=== PATIENT | female | born 1940 | race Caucasian/White ===

== ENCOUNTER 2023-09-05 17:33 | Observation (INO) | payer OTHER ==
--- OUTSIDE RECORDS SUMMARY | 2023-09-05 17:41 | XMS REPORT | Continuity of Care Document ---
Author Name Unknown Address [address] [facility] [address] [place] [address] [facility] Address [address] [facility] [address] [place] [address] Care Team Providers Care Dispatcher Service Chief Name Role Phone PCP, UNKNOWN Primary Care Physician UnavailJoyce Stern Attending Clinician UnavailJEAN Sharma Attending Clinician Unavailable Service/[place], Surgery C Attending Clinician U Miguel Hernandez MD Attending Clinicia n Jean Wheatley MD Attending Clinician [phone] KEILA HAMMER Attending Clinician UnavailKeila Rossi Attending Clinician Ruma Salinas RN Attending Clinician UnavailThiago Jones MD Attending Clinician [phone] TIFFANY PATTERSON Attending Clinician U TIFFANY Garcia Attending Clinician U Iam Gomez Attending Clinician Unavailable Doctor Unassigned, [place] Attending Clinician U ZACARIAS Melo Attending Clinician Unavailable ZACARIAS SAMSON Attending Clinician Unavailable Everette Jiang MD Attending Clinician [phone] Brandon Landa MD Attending Clinician [phone] BRITTANY MARTEL Attending Clinician Unavailable Brittany Martel MD Attending Clinician [phone] RADIOLOGY Attending Clinician Unavailable Radiology Attending Clinician Unavailable KEILA FREITAS Attending Clinician UnavailROCAEL Sanabria Attending Clinician Unavailable JUSTA SANTOS Attending Clinician Unavailab TINY Tobias Attending Clinician UnavailTHIAGO Sidhu Admitting Clinician Unavailable Thiago Bee MD Admitting Clinician [phone] ZACARIAS SAMSON Admitting Clinician Unavailable BRITTANY MARTEL Admitting Clinician Unavailable JOYCE SERNA Admitting Clinician Unavailab JUSTA Quinteros Admitting Clinician Unavailab sandra Payers Payer Name Policy Type Policy Number Effective Date Expirati on Date Source [employer] CHO[employer] [id number] 2020 00:00:00 [employer] MEDICARE C1 [id number] Comm on [facility] Problems Condition Name Condition Details Condition Category Status Onset Date Resolution Date Last Treatment Date Treating Clinician Comments Source Pneumoperi toneum Pneumoperi toneum Disease Active 05-16 00:00: 00 [facility] Chest pain, unspecifie d type Chest pain, unspecifie d type Disease Active 04-07 00:00: 00 [facility] NSTEMI (non-ST elevated myocardial infarction ) NSTEMI (non-ST elevated myocardial infarction ) Disease Active 04-07 00:00: 00 [facility] [id number] Sciatica of right side Problem Active [facility] [id number] 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 [facility] [id number] Unilateral primary osteoarthr itis, right knee Problem Active [facility] [id number] Pain, joint, knee, left Problem Active [facility] [id number] Arthritis of shoulder Problem Active [facility] Allergies, Adverse Reactions, Alerts Allergy Name Allergy Type Status Severity Reaction(s) Onset Date Inactive Date Treating Clinician Comments Source No Known Drug Allergie s DA Active U 8-15 00:00: 00 [facility] NO KNOWN ALLERGIE S Drug Class Active [facility] Social History Social Habit Start Date Stop Date Quantity Comments Source History of Tobacco Use [facility] Sex Assigned At [facility] History of Social function 2023-06-04 00:00:00 2023-06-04 00:00:00 [facility] Tobacco use and exposure 2023-05-17 00:00:00 2023-05-17 00:00:00 Smokeless tobacco non-user [facility] Tobacco Comment 2023-05-17 00:00:00 2023-05-17 00:00:00 Non smoker [facility] Exposure to SARS-CoV-2 (event) 2023-01-16 00:00:00 2023-01-26 12:23:00 Not sure [facility] Smoking Status Start Date Stop Date Source Tobacco smoking consumption unknown [facility] Never smoked tobacco [facility] Medications Ordered Medication Name Filled Medication Name Start Date Stop Date Current Medication? Ordering Clinician Indication Dosage Frequency Signature (SIG) Comments Components Source lisinopriL 20 mg tablet 06-04 13:04: 50 Yes 20mg Take 1 tablet by mouth in the morning. [facility] atorvastati n 40 mg tablet 06-04 13:04: 50 Yes 40mg Take 1 tablet by mouth at bedtime. [facility] furosemide 40 mg tablet 06-04 13:04: 50 Yes 40mg Take 1 tablet by mouth in the morning. [facility] levothyroxi ne 50 mcg tablet 06-04 13:04: 50 Yes 50ug Take 1 tablet by mouth every morning. [facility] metoprolol succinate XL 25 mg 24 hr tablet 06-04 13:04: 50 Yes 25mg Take 1 tablet by mouth in the morning. [facility] lisinopriL 20 mg tablet 202306-04 13:04: 50 Yes 20mg Take 1 tablet by mouth in the morning. [facility] atorvastati n 40 mg tablet 06-04 13:04: 50 Yes 40mg Take 1 tablet by mouth at bedtime. [facility] furosemide 40 mg tablet 06-04 13:04: 50 Yes 40mg Take 1 tablet by mouth in the morning. [facility] levothyroxi ne 50 mcg tablet 06-04 13:04: 50 Yes 50ug Take 1 tablet by mouth every morning. [facility] metoprolol succinate XL 25 mg 24 hr tablet 06-04 13:04: 50 Yes 25mg Take 1 tablet by mouth in the morning. [facility] lisinopriL 20 mg tablet 05-19 14:40: 55 Yes 20mg Take 1 tablet by mouth in the morning. [facility] atorvastati n 40 mg tablet 05-19 14:40: 55 Yes 40mg Take 1 tablet by mouth at bedtime. [facility] furosemide 40 mg tablet 05-19 14:40: 55 Yes 40mg Take 1 tablet by mouth in the morning. [facility] levothyroxi ne 50 mcg tablet 05-19 14:40: 55 Yes 50ug Take 1 tablet by mouth every morning. [facility] metoprolol succinate XL 25 mg 24 hr tablet 05-19 14:40: 55 Yes 25mg Take 1 tablet by mouth in the morning. [facility] lisinopriL 20 mg tablet 05-19 14:40: 55 Yes 20mg Take 1 tablet by mouth in the morning. [facility] atorvastati n 40 mg tablet 05-19 14:40: 55 Yes 40mg Take 1 tablet by mouth at bedtime. [facility] furosemide 40 mg tablet 05-19 14:40: 55 Yes 40mg Take 1 tablet by mouth in the morning. [facility] levothyroxi ne 50 mcg tablet 05-19 14:40: 55 Yes 50ug Take 1 tablet by mouth every morning. [facility] metoprolol succinate XL 25 mg 24 hr tablet 2022-0 8-20 14:40: 55 Yes 25mg Take 1 tablet by mouth in the morning. [facility] lisinopriL 20 mg tablet 2022-0 8-20 14:40: 55 Yes 20mg Take 1 tablet by mouth in the morning. [facility] atorvastati n 40 mg tablet 2022-0 8-20 14:40: 55 Yes 40mg Take 1 tablet by mouth at bedtime. [facility] furosemide 40 mg tablet 2022-0 820 14:40: 55 Yes 40mg Take 1 tablet by mouth in the morning. [facility] levothyroxi ne 50 mcg tablet 0 8 14:40: 55 Yes 50ug Take 1 tablet by mouth every morning. [facility] metoprolol succinate XL 25 mg 24 hr tablet 2022-0 820 14:40: 55 Yes 25mg Take 1 tablet by mouth in the morning. [facility] lisinopriL 20 mg tablet 2022-0 820 14:40: 55 Yes 20mg Take 1 tablet by mouth in the morning. [facility] atorvastati n 40 mg tablet 0 820 14:40: 55 Yes 40mg Take 1 tablet by mouth at bedtime. [facility] furosemide 40 mg tablet 2022-0 820 14:40: 55 Yes 40mg Take 1 tablet by mouth in the morning. [facility] levothyroxi ne 50 mcg tablet 2022-0 820 14:40: 55 Yes 50ug Take 1 tablet by mouth every morning. [facility] metoprolol succinate XL 25 mg 24 hr tablet 2022-0 820 14:40: 55 Yes 25mg Take 1 tablet by mouth in the morning. [facility] lisinopriL 20 mg tablet 2022-0 8-20 14:40: 55 Yes 20mg Take 1 tablet by mouth in the morning. [facility] atorvastati n 40 mg tablet 2022-0 8-20 14:40: 55 Yes 40mg Take 1 tablet by mouth at bedtime. [facility] furosemide 40 mg tablet 05-19 14:40: 55 Yes 40mg Take 1 tablet by mouth in the morning. [facility] levothyroxi ne 50 mcg tablet 05-19 14:40: 55 Yes 50ug Take 1 tablet by mouth every morning. [facility] metoprolol succinate XL 25 mg 24 hr tablet 05-19 14:40: 55 Yes 25mg Take 1 tablet by mouth in the morning. [facility] pantoprazol e (PROTONIX) 40 mg EC tablet 05-19 00:00: 00 08-18 05:59 :00 No [id number] 40mg Take 1 tablet by mouth in the morning for 90 days. [facility] pantoprazol e (PROTONIX) 40 mg EC tablet 05-19 00:00: 00 08-18 05:59 :00 No [id number] 40mg Take 1 tablet by mouth in the morning for 90 days. [facility] pantoprazol e (PROTONIX) 40 mg EC tablet 05-19 00:00: 00 08-18 05:59 :00 No [id number] 40mg Take 1 tablet by mouth in the morning for 90 days. [facility] pantoprazol e (PROTONIX) 40 mg EC tablet 05-19 00:00: 00 08-18 05:59 :00 No [id number] 40mg Take 1 tablet by mouth in the morning for 90 days. [facility] pantoprazol e (PROTONIX) 40 mg EC tablet 05-19 00:00: 00 08-18 05:59 :00 No [id number] 40mg Take 1 tablet by mouth in the morning for 90 days. [facility] pantoprazol e (PROTONIX) 40 mg EC tablet 05-19 00:00: 00 08-18 05:59 :00 No [id number] 40mg Take 1 tablet by mouth in the morning for 90 days. [facility] pantoprazol e (PROTONIX) 40 mg EC tablet 20 00:00: 00 08-18 05:59 :00 No [id number] 40mg Take 1 tablet by mouth in the morning for 90 days. [facility] clarithromy han 500 mg tablet 20 00:00: 00 06-03 04:59 :00 No [id number] 500mg Take 1 tablet by mouth every 12 (twelve) hours for 14 days. [facility] amoxicillin 500 mg capsule 05-19 00:00: 00 06-03 04:59 :00 No [id number] 1000mg Take 2 capsules by mouth in the morning and 2 capsules in the evening. Do all this for 14 days. [facility] clarithromy han 500 mg tablet 05-19 00:00: 00 06-03 04:59 :00 No [id number] 500mg Take 1 tablet by mouth every 12 (twelve) hours for 14 days. [facility] amoxicillin 500 mg capsule 05-19 00:00: 00 06-03 04:59 :00 No [id number] 1000mg Take 2 capsules by mouth in the morning and 2 capsules in the evening. Do all this for 14 days. [facility] clarithromy han 500 mg tablet 05-19 00:00: 00 06-03 04:59 :00 No [id number] 500mg Take 1 tablet by mouth every 12 (twelve) hours for 14 days. [facility] amoxicillin 500 mg capsule 05-19 00:00: 00 06-03 04:59 :00 No [id number] 1000mg Take 2 capsules by mouth in the morning and 2 capsules in the evening. Do all this for 14 days. [facility] clarithromy han 500 mg tablet 05-19 00:00: 00 06-03 04:59 :00 No [id number] 500mg Take 1 tablet by mouth every 12 (twelve) hours for 14 days. [facility] amoxicillin 500 mg capsule 20 00:00: 06-03 04:59 :00 No [id number] 1000mg Take 2 capsules by mouth in the morning and 2 capsules in the evening. Do all this for 14 days. [facility] clarithromy han 500 mg tablet 05-19 00:00: 00 06-03 04:59 :00 No [id number] 500mg Take 1 tablet by mouth every 12 (twelve) hours for 14 days. [facility] amoxicillin 500 mg capsule 05-19 00:00: 06-03 04:59 :00 No [id number] 1000mg Take 2 capsules by mouth in the morning and 2 capsules in the evening. Do all this for 14 days. [facility] piperacilli n-tazobacta m (ZOSYN) 3.375 g in NaCl 0.9% (NS) 100 mL MINI-BAG 05-18 03:00: 00 05-23 02:59 :00 No 3.375g 3.375 g, IV Piggyback, Q8H ABX, 15 doses, First dose on Sat05/17/23 at 2200, Last dose on Sat05/22/23 at 1400, Administer over 4 Hours, 100 mL
Reas on for Anti-Infec tive: Documented Infection& lt;br>Docu mented Infection Site: Abdominal< br>Duratio n of Therapy: Other (see Comments) [facility] hydrOXYzine (ATARAX) tablet 25 mg 05-17 23:16: 43 Yes 25mg 25 mg, Oral, Q6HPRN, Starting on Sat05/17/23 at 1816, Until Discontinu ed, Routine, Anxiety [facility] ondansetron (ZOFRAN-ODT ) disintegrat ing tablet 4 mg 05-17 19:28: 02 Yes 4mg 4 mg, Oral, Q8HPRN, Starting on Sat05/17/23 at 1428, Until Discontinu ed, Routine, Nausea and Vomiting (N/V) [facility] acetaminoph en (TYLENOL) tablet 650 mg 05-17 19:23: 40 Yes 650mg 650 mg, Oral, Q6HPRN, Starting on Sat05/17/23 at 1423, Until Discontinu ed, Routine, Pain (scale 4-6) [facility] metoprolol succinate XL (TOPROL XL) tablet 25 mg 05-17 14:00: 00 Yes 25mg 25 mg, Oral, DAILY, First dose on Sat05/17/23 at 0900, Until Discontinu ed, Routine [facility] aspirin chewable tablet 81 mg 05-17 14:00: 00 Yes 81mg 81 mg, Oral, DAILY, First dose on Sat05/17/23 at 0900, Until Discontinu ed, Routine [facility] levothyroxi ne (SYNTHROID) injection 25 mcg 05-17 14:00: 00 Yes 25ug 25 mcg, Intravenou s, QAM, First dose on Sat05/17/23 at 0900, Until Discontinu ed, Routine [facility] ticagrelor (BRILINTA) tablet 90 mg 05-17 13:00: 00 Yes 90mg 90 mg, Oral, BID, First dose on Sat05/17/23 at 0800, Until Discontinu ed, Routine [facility] fluconazole (DIFLUCAN) IV Piggyback 400 mg 05-17 11:30: 00 05-22 11:29 :00 No 400mg at 100 mL/hr, IV Piggyback, Q24H ABX, 5 doses, First dose (after last reorder) on Sat05/17/23 at 0630, Last dose on Sat05/21/23 at 0630, ERICA
Do Not Refrigerat e.
[facility] pantoprazol e (PROTONIX) injection 40 mg 05-17 01:00: 00 Yes 40mg 40 mg, Slow IV Push, Q12H, First dose (after last modificati on) on Sat05/16/23 at 2000, Until Discontinu ed [facility] D5W 0.45% NaCl (1/2NS) 1 L + KCL 20 mEq 05-17 00:15: 00 05-19 14:52 :17 No IV Infusion, at 100 mL/hr, CONTINUOUS , Starting on Sat05/16/23 at 1915, Until Sat05/19/23 at 0952, Routine [facility] enoxaparin (LOVENOX) injection 40 mg 05-16 22:00: 00 Yes 40mg 40 mg, Subcutaneo us, DAILY, First dose on Sat05/16/23 at 1700, Until Discontinu ed, Routine [facility] iopamidol (ISOVUE 370-200 mL) injection 100 mL 05-16 19:15: 00 05-16 19:13 :00 No [id number] 100mL 100 mL, Oral, ONCE, 1 dose, On Sat05/16/23 at 1415, Routine [facility] piperacilli n-tazobacta m (ZOSYN) 3.375 g in NaCl 0.9% (NS) 100 mL MINI-BAG 05-16 17:15: 00 05-17 14:55 :00 No 3.375g 3.375 g, IV Piggyback, Q8H ABX, 3 doses, First dose on Sat05/16/23 at 1215, Last dose on Sat05/17/23 at 0415, Administer over 4 Hours, 100 mL
Reas on for Anti-Infec tive: Empiric Therapy for Suspected Infection< br>Empiric Therapy Site: Abdominal< br>Duratio n of therapy: 72 hours [facility] ondansetron (ZOFRAN (PF)) injection 4 mg 05-16 15:15: 00 05-16 14:27 :00 No 4mg 4 mg, Slow IV Push, ONCE, On Sat05/16/23 at 1015, For 1 dose
Do ses of ondansetro n 16 mg and above need to be administer ed via IV piggyback. For Dose >=24mg ECG monitoring is advisable.
[facility] sulfur hexafluorid e microsphr (LUMASON) injection 5 mL 05-16 14:45: 00 05-16 14:45 :00 No [id number] 5mL 5 mL, Intravenou s, ONCE, 1 dose, On Lynda 05/16/23 at 0945, Routine
hotel staff member approving Restricted medication : RANJIT PENA [facility] magnesium sulfate in water 2 gram/50 mL (4 %) infusion 2 g 05-16 11:45: 00 05-16 12:55 :00 No 2g 2 g, IV Piggyback, Administer over 60 Minutes, ONCE, 1 dose, On Lynda 05/16/23 at 0645, Routine [facility] piperacilli n-tazobacta m (ZOSYN) 3.375 g in NaCl 0.9% (NS) 100 mL MINI-BAG 05-16 09:30: 00 05-16 09:43 :00 No 3.375g 3.375 g, IV Piggyback, ONCE, 1 dose, On Sat05/16/23 at 0430, Administer over 30 Minutes, 100 mL
Reas on for Anti-Infec tive: Empiric Therapy for Suspected Infection< br>Empiric Therapy Site: Abdominal< br>Duratio n of therapy: 72 hours [facility] lactated ringers IV infusion 1,000 mL 05-16 09:00: 00 05-16 23:12 :54 No 1000mL at 80 mL/hr, 1,000 mL, IV Infusion, CONTINUOUS , Starting on Sat05/16/23 at 0400, Until Lynda 05/16/23 at 1812, Routine [facility] morpHINE (2 mg/mL) injection 2 mg 05-16 08:45: 06 Yes 2mg 2 mg, Slow IV Push, Q4HPRN, Starting on Sat05/16/23 at 0345, Until Discontinu ed, Routine, Pain (scale 7-10) [facility] fluconazole (DIFLUCAN) IV Piggyback 400 mg 05-16 08:45: 00 05-16 13:51 :00 No 400mg at 100 mL/hr, IV Piggyback, Q24H ABX, 1 dose, First dose on Sat05/16/23 at 0345, ERICA
Do Not Refrigerat e.
[facility] pantoprazol e (PROTONIX) injection 40 mg 05-16 08:45: 00 05-16 12:09 :49 No 40mg 40 mg, Slow IV Push, Q24H, 3 doses, First dose on Lynda 05/16/23 at 0345, Last dose on Sat05/18/23 at 0345 [facility] acetaminoph en ADULT (OFIRMEV) injection 1,000 mg 05-16 08:44: 52 05-17 08:43 :52 No 1000mg 1,000 mg, IV Infusion, at 400 mL/hr Administer over 15 Minutes, Q8HPRN, Starting on Lynda 05/16/23 at 0344, Until Sat05/17/23 at 0343, Routine, Pain (scale 1-3), Pain (scale 4-6)
In dication: Perioperat shruti Patient [facility] ondansetron (ZOFRAN (PF)) injection 4 mg 05-16 08:42: 41 05-17 19:27 :27 No 4mg 4 mg, Slow IV Push, Q6HPRN, Starting on Lynda 05/16/23 at 0342, Until Sat05/17/23 at 1427, Routine, Nausea and Vomiting (N/V) [facility] NaCl 0.9% (NS) IV infusion 1,000 mL 05-16 06:15: 00 Yes 1000mL at 125 mL/hr, IV Infusion, CONTINUOUS , Starting on Sat05/16/23 at 0115, Until Discontinu ed, Routine [facility] morpHINE (4 mg/mL) injection 4 mg 05-16 06:00: 00 05-16 05:53 :00 No 4mg 4 mg, Slow IV Push, ONCE, 1 dose, On Sat05/16/23 at 0100, STAT [facility] LORazepam (ATIVAN) injection 0.5 mg 05-16 02:45: 00 05-16 02:32 :00 No .5mg 0.5 mg, Slow IV Push, ONCE, 1 dose, On Sat05/15/23 at 2145, [facility] morpHINE (4 mg/mL) injection 4 mg 05-16 02:30: 00 05-16 01:51 :00 No 4mg 4 mg, Slow IV Push, ONCE, 1 dose, On Sat05/15/23 at 2130, [facility] famotidine (PEPCID (PF)) injection 20 mg 05-16 02:30: 00 05-16 01:51 :00 No 20mg 20 mg, Slow IV Push, ONCE, 1 dose, On Sat05/15/23 at 2130, [facility] ondansetron (ZOFRAN (PF)) injection 4 mg 05-16 02:30: 00 05-16 01:51 :00 No 4mg 4 mg, Slow IV Push, ONCE, 1 dose, On Sat05/15/23 at 2130, [facility] aspirin 81 mg chewable tablet 3-0 7-14 00:00: 00 Yes [id number] 81mg Take 1 tablet by mouth in the morning. [facility] aspirin 81 mg chewable tablet 3-0 7-14 00:00: 00 Yes [id number] 81mg Take 1 tablet by mouth in the morning. [facility] aspirin 81 mg chewable tablet 3-0 7-14 00:00: 00 Yes [id number] 81mg Take 1 tablet by mouth in the morning. [facility] aspirin 81 mg chewable tablet 3-0 7-14 00:00: 00 Yes [id number] 81mg Take 1 tablet by mouth in the morning. [facility] aspirin 81 mg chewable tablet 3-0 7-14 00:00: 00 Yes [id number] 81mg Take 1 tablet by mouth in the morning. [facility] aspirin 81 mg chewable tablet 3-0 7-14 00:00: 00 Yes [id number] 81mg Take 1 tablet by mouth in the morning. [facility] aspirin 81 mg chewable tablet 04-12 00:00: 00 Yes [id number] 81mg Take 1 tablet by mouth in the morning. [facility] aspirin 81 mg chewable tablet 0 04-12 00:00: 00 Yes [id number] 81mg Take 1 tablet by mouth in the morning. [facility] aspirin 81 mg chewable tablet 04-12 00:00: 00 Yes [id number] 81mg Take 1 tablet by mouth in the morning. [facility] aspirin 81 mg chewable tablet 04-12 00:00: 00 Yes [id number] 81mg Take 1 tablet by mouth in the morning. [facility] aspirin 81 mg chewable tablet 04-12 00:00: 00 Yes [id number] 81mg Take 1 tablet by mouth in the morning. [facility] aspirin 81 mg chewable tablet 04-12 00:00: 00 Yes [id number] 81mg Take 1 tablet by mouth in the morning. [facility] lisinopriL 20 mg tablet 04-11 14:05: 45 Yes 20mg Take 1 tablet by mouth in the morning. [facility] atorvastati n 40 mg tablet 04-11 14:05: 45 Yes 40mg Take 1 tablet by mouth at bedtime. [facility] furosemide 40 mg tablet 04-11 14:05: 45 Yes 40mg Take 1 tablet by mouth in the morning. [facility] levothyroxi ne 50 mcg tablet 04-11 14:05: 45 Yes 50ug Take 1 tablet by mouth every morning. [facility] metoprolol succinate XL 25 mg 24 hr tablet 04-11 14:05: 45 Yes 25mg Take 1 tablet by mouth in the morning. [facility] lisinopriL 20 mg tablet 04-11 14:05: 45 Yes 20mg Take 1 tablet by mouth in the morning. [facility] atorvastati n 40 mg tablet 04-11 14:05: 45 Yes 40mg Take 1 tablet by mouth at bedtime. [facility] furosemide 40 mg tablet 04-11 14:05: 45 Yes 40mg Take 1 tablet by mouth in the morning. [facility] levothyroxi ne 50 mcg tablet 04-11 14:05: 45 Yes 50ug Take 1 tablet by mouth every morning. [facility] metoprolol succinate XL 25 mg 24 hr tablet 04-11 14:05: 45 Yes 25mg Take 1 tablet by mouth in the morning. [facility] lisinopriL 20 mg tablet 04-11 14:05: 45 Yes 20mg Take 1 tablet by mouth in the morning. [facility] [facility] atorvastati n 40 mg tablet 04-11 14:05: 45 Yes 40mg Take 1 tablet by mouth at bedtime. [facility] furosemide 40 mg tablet 04-11 14:05: 45 Yes 40mg Take 1 tablet by mouth in the morning. [facility] levothyroxi ne 50 mcg tablet 04-11 14:05: 45 Yes 50ug Take 1 tablet by mouth every morning. [facility] metoprolol succinate XL 25 mg 24 hr tablet 04-11 14:05: 45 Yes 25mg Take 1 tablet by mouth in the morning. [facility] lisinopriL 20 mg tablet 04-11 14:05: 45 Yes 20mg Take 1 tablet by mouth in the morning. [facility] atorvastati n 40 mg tablet 04-11 14:05: 45 Yes 40mg Take 1 tablet by mouth at bedtime. [facility] furosemide 40 mg tablet 04-11 14:05: 45 Yes 40mg Take 1 tablet by mouth in the morning. [facility] levothyroxi ne 50 mcg tablet 04-11 14:05: 45 Yes 50ug Take 1 tablet by mouth every morning. [facility] metoprolol succinate XL 25 mg 24 hr tablet 04-11 14:05: 45 Yes 25mg Take 1 tablet by mouth in the morning. [facility] KCL (KLOR-CON M20) tablet 40 mEq 04-11 12:45: 00 04-11 14:45 :00 No 40meq 40 mEq, Oral, ONCE, 1 dose, On Sat04/11/23 at 0745, Routine [facility] magnesium sulfate in water 2 gram/50 mL (4 %) infusion 2 g 04-11 12:45: 00 04-11 15:52 :00 No 2g 2 g, IV Piggyback, Administer over 60 Minutes, ONCE, 1 dose, On Sat04/11/23 at 0745, Routine [facility] lisinopriL 20 mg tablet 04-11 10:52: 49 Yes 20mg Take 1 tablet by mouth in the morning. [facility] atorvastati n 40 mg tablet 04-11 10:52: 49 Yes 40mg Take 1 tablet by mouth at bedtime. [facility] furosemide 40 mg tablet 04-11 10:52: 49 Yes 40mg Take 1 tablet by mouth in the morning. [facility] levothyroxi ne 50 mcg tablet 04-11 10:52: 49 Yes 50ug Take 1 tablet by mouth every morning. [facility] metoprolol succinate XL 25 mg 24 hr tablet 04-11 10:52: 49 Yes 25mg Take 1 tablet by mouth in the morning. [facility] melatonin (MELATIN) tablet 6 mg 04-11 02:45: 00 04-11 02:56 :00 No 6mg 6 mg, Oral, ONCE, 1 dose, On Sat04/10/23 at 2145, Routine [facility] diphenhydrA MINE (BENADRYL) tablet 50 mg 04-11 02:45: 00 04-11 02:56 :00 No 50mg 50 mg, Oral, ONCE, 1 dose, On Sat04/10/23 at 2145, Routine [facility] ticagrelor 90 mg tablet 04-11 00:00: 00 Yes [id number] 90mg Take 1 tablet by mouth in the morning and 1 tablet in the evening. [facility] mg tablet 3-0 7-13 00:00: 00 Yes [id number] 90mg Take 1 tablet by mouth in the morning and 1 tablet in the evening. [facility] tic[facility]relor 90 mg tablet 3-0 7-13 00:00: 00 Yes [id number] 90mg Take 1 tablet by mouth in the morning and 1 tablet in the evening. [facility] ticagrelor 90 mg tablet 3-0 7-13 00:00: 00 Yes [id number] 90mg Take 1 tablet by mouth in the morning and 1 tablet in the evening. [facility] ticagrelor 90 mg tablet 3-0 7-13 00:00: 00 Yes [id number] 90mg Take 1 tablet by mouth in the morning and 1 tablet in the evening. [facility] ticagrelor 90 mg tablet 3-0 7-13 00:00: 00 Yes [id number] 90mg Take 1 tablet by mouth in the morning and 1 tablet in the evening. [facility] ticagrelor 90 mg tablet 3-0 7-13 00:00: 00 Yes [id number] 90mg Take 1 tablet by mouth in the morning and 1 tablet in the evening. [facility] ticagrelor 90 mg tablet 3-0 7-13 00:00: 00 Yes [id number] 90mg Take 1 tablet by mouth in the morning and 1 tablet in the evening. [facility] ticagrelor 90 mg tablet 3-0 7-13 00:00: 00 Yes [id number] 90mg Take 1 tablet by mouth in the morning and 1 tablet in the evening. [facility] ticagrelor 90 mg tablet 3-0 7-13 00:00: 00 Yes [id number] 90mg Take 1 tablet by mouth in the morning and 1 tablet in the evening. [facility] ticagrelor 90 mg tablet 2023-0 7-13 00:00: 00 Yes [id number] 90mg Take 1 tablet by mouth in the morning and 1 tablet in the evening. [facility] ticagrelor 90 mg tablet 3-0 7-13 00:00: 00 Yes [id number] 90mg Take 1 tablet by mouth in the morning and 1 tablet in the evening. [facility] protamine 25 mg in NaCl 0.9% (NS) 50 mL IV piggyback 04-10 18:08: 00 04-10 18:25 :00 No CONTINUOUS PRN, Starting on Sat04/10/23 at 1308, Until Discontinu ed, 50 mL, CV Intraproce dure [facility] iopamidol (ISOVUE 370-500 mL) injection 04-10 18:05: 00 04-10 18:35 :35 No ONCE INTRA PROCEDURE, Starting on Sat04/10/23 at 1305, Until Sat04/10/23 at 1335, Routine, CV Intraproce dure [facility] protamine 1 mg in NaCl 0.9% (NS) 50 mL IV piggyback 04-10 17:53: 00 04-10 18:25 :00 No CONTINUOUS PRN, Starting on Sat04/10/23 at 1253, Until Discontinu ed, 50 mL, CV Intraproce dure [facility] adenosine 6 mg/1000 mL INTRACORONA RY injection for SHOW JUMPING IN[employer]CTOR 04-10 17:41: 00 04-10 18:35 :35 No ONCE INTRA PROCEDURE, Starting on Sat04/10/23 at 1241, Until Sat04/10/23 at 1335, Routine, CV Intraproce dure [facility] nitroglycer in (TRIDIL) 2 mg in 10 mL D5W for Cardiac Cath 04-10 17:25: 00 04-10 18:35 :35 No ONCE INTRA PROCEDURE, Starting on Sat04/10/23 at 1225, Until Sat04/10/23 at 1335, Routine, CV Intraproce dure [facility] heparin 1,000 unit/mL injection 04-10 16:38: 00 04-10 18:35 :36 No ONCE INTRA PROCEDURE, Starting on Sat04/10/23 at 1138, Until Sat04/10/23 at 1335, Routine, CV Intraproce dure [facility] lidocaine 1% (PF) (XYLOCAINE) injection 04-10 16:21: 59 04-10 18:35 :36 No ONCE INTRA PROCEDURE, Starting on Sat04/10/23 at 1121, Until Sat04/10/23 at 1335, Routine, CV Intraproce dure [facility] midazolam (VERSED) injection 04-10 16:10: 20 04-10 18:35 :36 No ONCE INTRA PROCEDURE, Starting on Sat04/10/23 at 1110, Until Sat04/10/23 at 1335, Routine, CV Intraproce dure [facility] FENTanyl PF (SUBLIMAZE (PF)) injection 04-10 16:10: 15 04-10 18:35 :36 No ONCE INTRA PROCEDURE, Starting on Sat04/10/23 at 1110, Until Sat04/10/23 at 1335, Routine, CV Intraproce dure [facility] ticagrelor (BRILINTA) tablet 90 mg 04-10 13:00: 00 Yes 90mg 90 mg, Oral, BID, First dose (after last modificati on) on Sat04/10/23 at 0800, Until Discontinu ed, Routine [facility] ticagrelor (BRILINTA) tablet 90 mg 04-10 13:00: 00 04-11 21:05 :49 No 90mg 90 mg, Oral, BID, First dose (after last modificati on) on Sat04/10/23 at 0800, Until Discontinu ed, Routine [facility] KCL (KLOR-CON M20) tablet 40 mEq 04-10 12:30: 00 04-10 14:10 :00 No 40meq 40 mEq, Oral, ONCE, 1 dose, On Sat04/10/23 at 0730, Routine [facility] melatonin (MELATIN) tablet 6 mg 04-10 07:15: 00 04-10 06:32 :00 No 6mg 6 mg, Oral, ONCE, 1 dose, On Sat04/10/23 at 0215, Routine [facility] diphenhydrA MINE (BENADRYL) capsule 50 mg 04-10 07:15: 00 04-10 06:32 :00 No 50mg 50 mg, Oral, ONCE, 1 dose, On Sat04/10/23 at 0215, Routine [facility] ticagrelor (BRILINTA) tablet 180 mg 04-10 03:15: 00 04-10 04:11 :00 No [id number] 180mg 180 mg, Oral, ONCE, 1 dose, On Sat04/09/23 at 2215, Routine [facility] acetaminoph en (TYLENOL) tablet 1,000 mg 04-09 09:00: 00 04-09 11:26 :00 No 1000mg 1,000 mg, Oral, ONCE, 1 dose, On Sat04/09/23 at 0400, Routine [facility] sulfur hexafluorid e microsphr (LUMASON) injection 5 mL 04-08 21:45: 00 04-08 21:40 :00 No [id number] 5mL 5 mL, Intravenou s, ONCE, 1 dose, On Sat04/08/23 at 1645, Routine
hotel staff member approving Restricted medication : RANJIT PENA [facility] trimethoben zamide (TIGAN) injection 100 mg 04-08 19:33: 32 Yes 100mg 100 mg, Intramuscu lar, Q6HPRN, Starting on Sat04/08/23 at 1433, Until Discontinu ed, Routine, Nausea and Vomiting (N/V) [facility] trimethoben zamide (TIGAN) injection 100 mg 04-08 19:33: 32 Yes 100mg 100 mg, Intramuscu lar, Q6HPRN, Starting on Sat04/08/23 at 1433, Until Discontinu ed, Routine, Nausea and Vomiting (N/V) [facility] trimethoben zamide (TIGAN) injection 100 mg 04-08 19:33: 32 04-11 21:05 :49 No 100mg 100 mg, Intramuscu lar, Q6HPRN, Starting on Sat04/08/23 at 1433, Until Lynda 04/11/23 at 1605, Routine, Nausea and Vomiting (N/V) [facility] iopamidol (ISOVUE 370-500 mL) injection 04-08 17:48: 06 04-08 18:01 :18 No ONCE INTRA PROCEDURE, Starting on Sat04/08/23 at 1248, Until Sat04/08/23 at 1301, Routine, CV Intraproce dure [facility] heparin 1,000 unit/mL injection 04-08 17:19: 51 04-08 18:01 :18 No ONCE INTRA PROCEDURE, Starting on Sat04/08/23 at 1219, Until Sat04/08/23 at 1301, Routine, CV Intraproce dure [facility] nitroglycer in (TRIDIL) 2 mg in 10 mL D5W for Cardiac Cath 04-08 17:19: 39 04-08 18:01 :18 No ONCE INTRA PROCEDURE, Starting on Sat04/08/23 at 1219, Until Sat04/08/23 at 1301, Routine, CV Intraproce dure [facility] lidocaine 1% (PF) (XYLOCAINE) injection 04-08 17:19: 09 04-08 18:01 :18 No ONCE INTRA PROCEDURE, Starting on Sat04/08/23 at 1219, Until Sat04/08/23 at 1301, Routine, CV Intraproce dure [facility] midazolam (VERSED) injection 04-08 17:03: 00 04-08 18:01 :18 No ONCE INTRA PROCEDURE, Starting on Sat04/08/23 at 1203, Until Sat04/08/23 at 1301, Routine, CV Intraproce dure [facility] FENTanyl PF (SUBLIMAZE (PF)) injection 04-08 17:03: 00 04-08 18:01 :18 No ONCE INTRA PROCEDURE, Starting on Sat04/08/23 at 1203, Until Sat04/08/23 at 1301, Routine, CV Intraproce dure [facility] furosemide (LASIX) tablet 40 mg 2022-0 04-08 14:00: 00 Yes 40mg 40 mg, Oral, DAILY, First dose on Sat04/08/23 at 0900, Until Discontinu ed, Routine [facility] metoprolol succinate XL (TOPROL XL) tablet 25 mg 2022-0 04-08 14:00: 00 Yes 25mg 25 mg, Oral, DAILY, First dose on Sat04/08/23 at 0900, Until Discontinu ed, Routine [facility] lisinopriL (PRINIVIL,Z ESTRIL) tablet 20 mg 2022-0 04-08 14:00: 00 Yes 20mg 20 mg, Oral, DAILY, First dose on Sat04/08/23 at 0900, Until Discontinu ed, Routine [facility] aspirin chewable tablet 81 mg 2022-0 04-08 14:00: 00 Yes 81mg 81 mg, Oral, DAILY, First dose on Sat04/08/23 at 0900, Until Discontinu ed, Routine [facility] furosemide (LASIX) tablet 40 mg 2022-0 04-08 14:00: 00 Yes 40mg 40 mg, Oral, DAILY, First dose on Sat04/08/23 at 0900, Until Discontinu ed, Routine [facility] metoprolol succinate XL (TOPROL XL) tablet 25 mg 2022-0 04-08 14:00: 00 Yes 25mg 25 mg, Oral, DAILY, First dose on Sat04/08/23 at 0900, Until Discontinu ed, Routine [facility] lisinopriL (PRINIVIL,Z ESTRIL) tablet 20 mg 2022-0 04-08 14:00: 00 Yes 20mg 20 mg, Oral, DAILY, First dose on Sat04/08/23 at 0900, Until Discontinu ed, Routine [facility] aspirin chewable tablet 81 mg 3-0 04-08 14:00: 00 Yes 81mg 81 mg, Oral, DAILY, First dose on Sat04/08/23 at 0900, Until Discontinu ed, Routine [facility] furosemide (LASIX) tablet 40 mg 04-08 14:00: 00 04-11 21:05 :49 No 40mg 40 mg, Oral, DAILY, First dose on Sat04/08/23 at 0900, Until Discontinu ed, Routine [facility] metoprolol succinate XL (TOPROL XL) tablet 25 mg 04-08 14:00: 00 04-11 21:05 :49 No 25mg 25 mg, Oral, DAILY, First dose on Sat04/08/23 at 0900, Until Discontinu ed, Routine [facility] lisinopriL (PRINIVIL,Z ESTRIL) tablet 20 mg 04-08 14:00: 00 04-11 21:05 :49 No 20mg 20 mg, Oral, DAILY, First dose on Sat04/08/23 at 0900, Until Discontinu ed, [facility] 81 mg 04-08 14:00: 00 04-11 21:05 :49 No 81mg 81 mg, Oral, DAILY, First dose on Sat04/08/23 at 0900, Until Discontinu ed, Routine [facility] lisinopriL 20 mg tablet 04-08 13:39: 51 Yes 20mg Take 1 tablet by mouth in the morning. [facility] atorvastati n 40 mg tablet 04-08 13:39: 51 Yes 40mg Take 1 tablet by mouth at bedtime. [facility] furosemide 40 mg tablet 04-08 13:39: 51 Yes 40mg Take 1 tablet by mouth in the morning. [facility] levothyroxi ne 50 mcg tablet 04-08 13:39: 51 Yes 50ug Take 1 tablet by mouth every morning. [facility] metoprolol succinate XL 25 mg 24 hr tablet 04-08 13:39: 51 Yes 25mg Take 1 tablet by mouth in the morning. [facility] levothyroxi ne (SYNTHROID) tablet 50 mcg 04-08 11:00: 00 Yes 50ug 50 mcg, Oral, QAM-0600, First dose on Sat04/08/23 at 0600, Until Discontinu ed, Routine [facility] levothyroxi ne (SYNTHROID) tablet 50 mcg 04-08 11:00: 00 Yes 50ug 50 mcg, Oral, QAM-0600, First dose on Sat04/08/23 at 0600, Until Discontinu ed, Routine [facility] levothyroxi ne (SYNTHROID) tablet 50 mcg 04-08 11:00: 00 04-11 21:05 :49 No 50ug 50 mcg, Oral, QAM-0600, First dose on Sat04/08/23 at 0600, Until Discontinu ed, Routine [facility] atorvastati n (LIPITOR) tablet 40 mg 04-08 02:00: 00 Yes 40mg 40 mg, Oral, QHS, First dose on Sat04/07/23 at 2100, Until Discontinu ed, Routine [facility] atorvastati n (LIPITOR) tablet 40 mg 04-08 02:00: 00 Yes 40mg 40 mg, Oral, QHS, First dose on Sat04/07/23 at 2100, Until Discontinu ed, Routine [facility] atorvastati n (LIPITOR) tablet 40 mg 04-08 02:00: 00 04-11 21:05 :49 No 40mg 40 mg, Oral, QHS, First dose on Sat04/07/23 at 2100, Until Discontinu ed, Routine [facility] magnesium oxide (MAG-OX 400) tablet 400 mg 04-07 22:15: 00 04-07 22:22 :00 No 400mg 400 mg, Oral, ONCE, 1 dose, On 04/07/23 at 1715, Routine [facility] KCL (KLOR-CON M20) tablet 20 mEq 04-07 22:15: 00 04-07 22:22 :00 No 20meq 20 mEq, Oral, ONCE, 1 dose, On 04/07/23 at 1715, Routine [facility] nitroglycer in (NITROSTAT) sublingual tablet 0.4 mg 04-07 18:52: 17 Yes .4mg 0.4 mg, Sublingual , Q5MIN PRN, Starting on Sat04/07/23 at 1352, Until Discontinu ed, Routine, Chest pain [facility] nitroglycer in (NITROSTAT) sublingual tablet 0.4 mg 04-07 18:52: 17 Yes .4mg 0.4 mg, Sublingual , Q5MIN PRN, Starting on Sat04/07/23 at 1352, Until Discontinu ed, Routine, Chest pain [facility] nitroglycer in (NITROSTAT) sublingual tablet 0.4 mg 04-07 18:52: 17 04-11 21:05 :49 No .4mg 0.4 mg, Sublingual , Q5MIN PRN, Starting on Sat04/07/23 at 1352, Until Lynda 04/11/23 at 1605, Routine, Chest pain [facility] iopamidol (ISOVUE 370-500 mL) injection 100 mL 04-07 16:45: 00 04-07 16:45 :00 No [id number] 100mL 100 mL, Intravenou s, ONCE, 1 dose, On Sat04/07/23 at 1145, Routine [facility] aspirin tablet 325 mg 04-07 16:00: 00 04-07 16:17 :00 No 325mg 325 mg, Oral, ONCE, 1 dose, On Sat04/07/23 at 1100, STAT [facility] HEPARIN SODIUM (PORCINE) 1,000 UNIT/ML BOLUS ACS ORDER SET 04-07 16:00: 00 04-07 16:21 :00 No 4000U 4,000 Units, IV Push, ONCE, 1 dose, On Sat04/07/23 at 1100, ERICA [facility] heparin 25,000 Units/250 mL (Premixed Bag) in 0.45 % NS 04-07 15:43: 57 Yes 0U/h 0-2,150 Units/hr (0-21.5 mL/hr), IV Infusion, TITRATE, Parameters in Admin. Instr., Starting on 04/07/23 at 1043
In itiate dosing:&nb sp; & nbsp;&nbsp ; -Patient 83 kg or under: 1,000 Units/hr (Calculate d dose at 12 units/kg/h r) &n bsp; &nbs p; -Patient over 83 k,000 units/hr&n bsp;DO NOT Exceed the MAXIMUM 1,000 units/hr for initiation of heparin drip.&nbsp ; CAU TION - If LMWH given in ER, AVOID bolus and start next dose/drip 12 hrs after ER dosage.&nb sp; M ust program rate using programmab le infusion pump.&nbsp ; Meena ck with the ordering provider first prior to any administra tion should the patient be on existing/a dditional anticoagul ant therapy. Rang e, Dosing and Testing: &nbs p;FOR [facility], [facility], AND [facility] &nbs p; - aPTT < 35: & nbsp;Bolus 5000 units, increase rate 300 units/hr&n bsp; - aPTT 35-44:&nbs p; Boom shelly 3000 units, increase rate 200 units/hr&n bsp; - aPTT 45-54:&nbs p; In crease rate 100 units/hr&n bsp; - aPTT 55-85:&nbs p; NO CHANGE&nbs p; - aPTT 86-95:&nbs p; De crease rate 100 units/hr&n bsp; - aPTT 96-120:&nb sp; H old 30 minutes, decrease rate 150 units/hr&n bsp; - aPTT > 120: Hold 60 minutes, decrease rate 200 units/hr&n bsp; Check aPTT 6 hours after initiation , then Q6H after every change, aPTT Q12H once therapeuti c levels are reached.&n bsp; &nbs p; __ &n bsp;FOR [facility] ONLY - aPTT < 40: & nbsp;Bolus 5000 units, increase rate 300 units/hr&n bsp; - aPTT 40-49:&nbs p; Boom shelly 3000 units, increase rate 200 units/hr&n bsp; - aPTT 50-59:&nbs p; In crease rate 100 units/hr&n bsp; - aPTT 60-85:&nbs p; NO CHANGE&nbs p; - aPTT 86-95:&nbs p; De crease rate 100 units/hr&n bsp; - aPTT 96-120:&nb sp; H old 30 minutes, decrease rate 150 units/hr&n bsp; - aPTT > 120: Hold 60 minutes, decrease rate 200 units/hr&n bsp; Check aPTT 6 hours after initiation , then Q6H after every change, aPTT Q12H once therapeuti c levels are reached.&n bsp;&n bsp; DO NOT ADJUST INITIAL BOLUS OR INITIAL INFUSION RATE.
[facility] heparin 25,000 Units/250 mL (Premixed Bag) in 0.45 % NS 04-07 15:43: 57 04-11 13:35 :54 No 0U/h 0-2,150 Units/hr (0-21.5 mL/hr), IV Infusion, TITRATE, Parameters in Admin. Instr., Starting on 04/07/23 at 1043
In itiate dosing:&nb sp; & nbsp;&nbsp ; -Patient 83 kg or under: 1,000 Units/hr (Calculate d dose at 12 units/kg/h r) &n bsp; &nbs p; -Patient over 83 k,000 units/hr&n bsp;DO NOT Exceed the MAXIMUM 1,000 units/hr for initiation of heparin drip.&nbsp ; CAU TION - If LMWH given in ER, AVOID bolus and start next dose/drip 12 hrs after ER dosage.&nb sp; M ust program rate using programmab le infusion pump.&nbsp ; Meena ck with the ordering provider first prior to any administra tion should the patient be on existing/a dditional anticoagul ant therapy. Rang e, Dosing and Testing: &nbs p;FOR [facility], [facility], AND [facility] ONLY &nbs p; - aPTT < 35: & nbsp;Bolus 5000 units, increase rate 300 units/hr&n bsp; - aPTT 35-44:&nbs p; Boom shelly 3000 units, increase rate 200 units/hr&n bsp; - aPTT 45-54:&nbs p; In crease rate 100 units/hr&n bsp; - aPTT 55-85:&nbs p; NO CHANGE&nbs p; - aPTT 86-95:&nbs p; De crease rate 100 units/hr&n bsp; - aPTT 96-120:&nb sp; H old 30 minutes, decrease rate 150 units/hr&n bsp; - aPTT > 120: Hold 60 minutes, decrease rate 200 units/hr&n bsp; Check aPTT 6 hours after initiation , then Q6H after every change, aPTT Q12H once therapeuti c levels are reached.&n bsp; &nbs p; __ &n bsp;FOR [facility] ONLY - aPTT < 40: & nbsp;Bolus 5000 units, increase rate 300 units/hr&n bsp; - aPTT 40-49:&nbs p; Boom shelly 3000 units, increase rate 200 units/hr&n bsp; - aPTT 50-59:&nbs p; In crease rate 100 units/hr&n bsp; - aPTT 60-85:&nbs p; NO CHANGE&nbs p; - aPTT 86-95:&nbs p; De crease rate 100 units/hr&n bsp; - aPTT 96-120:&nb sp; H old 30 minutes, decrease rate 150 units/hr&n bsp; - aPTT > 120: Hold 60 minutes, decrease rate 200 units/hr&n bsp; Check aPTT 6 hours after initiation , then Q6H after every change, aPTT Q12H once therapeuti c levels are reached.&n bsp;&n bsp; DO NOT ADJUST INITIAL BOLUS OR INITIAL INFUSION RATE.
[facility] heparin (1,000 unit/mL, 10 mL vial) for Rebolusing 04-07 15:43: 43 Yes 3000U FOR REBOLUSING , Starting on 04/07/23 at 1043, Until Discontinu ed, Routine
Dosing based on aPPT testing parameters (refer to continuous heparin drip order).
[facility] heparin (1,000 unit/mL, 10 mL vial) for Rebolusing 04-07 15:43: 43 04-11 13:35 :54 No 3000U FOR REBOLUSING , Starting on Sat04/07/23 at 1043, Until Lynda 04/11/23 at 0835, Routine
Dosing based on aPPT testing parameters (refer to continuous heparin drip order).
[facility] nitroglycer in (NITROSTAT) sublingual tablet 0.4 mg 04-07 15:30: 00 04-07 15:27 :00 No .4mg 0.4 mg, Sublingual , ONCE, 1 dose, On Sat04/07/23 at 1030, [facility] acetaminoph en (TYLENOL) tablet 975 mg 04-07 15:30: 00 04-07 15:27 :00 No 975mg 975 mg, Oral, ONCE, 1 dose, On Sat04/07/23 at 1030, [facility] ondansetron (ZOFRAN (PF)) injection 4 mg 04-07 15:00: 00 04-07 13:54 :00 No 4mg 4 mg, Slow IV Push, ONCE, 1 dose, On Sat04/07/23 at 1000, [facility] morpHINE (4 mg/mL) injection 2 mg 04-07 14:00: 00 04-07 13:55 :00 No 2mg 2 mg, Slow IV Push, ONCE, 1 dose, On Sat04/07/23 at 0900, STAT [facility] cefTRIAXone (ROCEPHIN) 1,000 mg in NaCl 0.9% (NS) 100 mL MINI-BAG 01-26 20:30: 00 01-26 20:15 :00 No 1000mg 1,000 mg, IV Piggyback, ONCE, 1 dose, On 01/26/23 at 1530, Administer over 30 Minutes, 100 mL
Reas on for Anti-Infec tive: Documented Infection< br>Documen nelson Infection Site: Urine
D uration of Therapy: Other (see Comments) [facility] ondansetron (ZOFRAN (PF)) injection 4 mg 01-26 18:00: 00 01-26 18:22 :00 No 4mg 4 mg, Slow IV Push, ONCE, 1 dose, On 01/26/23 at 1300, ERICA [facility] FENTanyl PF (SUBLIMAZE (PF)) injection 25 mcg 01-26 18:00: 00 01-26 18:22 :00 No 25ug 25 mcg, Slow IV Push, ONCE, 1 dose, On 01/26/23 at 1300, STAT [facility] traMADoL (ULTRAM) 50 mg tablet 01-26 00:00: 00 Yes [id number] 50mg Take 1 tablet by mouth every 6 (six) hours as needed for Pain (scale 7-10). Indication s: acute pain [facility] cefdinir 300 mg capsule 01-26 00:00: 00 Yes [id number] 300mg Take 1 capsule by mouth every 12 (twelve) hours. [facility] traMADoL (ULTRAM) 50 mg tablet 01-26 00:00: 00 04-07 00:00 :00 No [id number] 50mg Take 1 tablet by mouth every 6 (six) hours as needed for Pain (scale 7-10). Indication s: acute pain [facility] cefdinir 300 mg capsule 01-26 00:00: 00 04-07 00:00 :00 No [id number] 300mg Take 1 capsule by mouth every 12 (twelve) hours. [facility] traMADoL (ULTRAM) 50 mg tablet 01-26 00:00: 00 04-07 00:00 :00 No [id number] 50mg Take 1 tablet by mouth every 6 (six) hours as needed for Pain (scale 7-10). Indication s: acute pain [facility] cefdinir 300 mg capsule 01-26 00:00: 00 04-07 00:00 :00 No [id number] 300mg Take 1 capsule by mouth every 12 (twelve) hours. [facility] traMADoL (ULTRAM) 50 mg tablet 01-26 00:00: 00 04-07 00:00 :00 No [id number] 50mg Take 1 tablet by mouth every 6 (six) hours as needed for Pain (scale 7-10). Indication s: acute pain [facility] cefdinir 300 mg capsule 01-26 00:00: 00 04-07 00:00 :00 No [id number] 300mg Take 1 capsule by mouth every 12 (twelve) hours. [facility] Bupivicaine [place] Bupivicaine [place] 01-15 00:00: 00 No 2.5mg [facility] Kenalog (Triamcinol one) Kenalog (Triamcinol one) 01-15 00:00: 00 No 40mg [facility] Bupivicaine [place] Bupivicaine [place] 01-15 00:00: 00 No 2.5mg [facility] Kenalog (Triamcinol one) Kenalog (Triamcinol one) 01-15 00:00: 00 No 40mg [facility] Kenalog (Triamcinol one) Kenalog (Triamcinol one) 10-24 00:00: 00 No 40mg [facility] Bupivicaine [place] Bupivicaine [place] 10-24 00:00: 00 No 2.5mg [facility] Kenalog (Triamcinol one) Kenalog (Triamcinol one) 10-24 00:00: 00 No 40mg [facility] Bupivicaine [place] Bupivicaine [place] 10-24 00:00: 00 No 2.5mg [facility] Kenalog (Triamcinol one) Kenalog (Triamcinol one) - 00:00: 00 No 40mg [facility] Bupivicaine [place] Bupivicaine [place] 2022-0 1-25 00:00: 00 No [facility] Bupivicaine [place] Bupivicaine [place] 0 04-20 00:00: 00 No 2.5mg [facility] Kenalog (Triamcinol one) Kenalog (Triamcinol one) 0 04-20 00:00: 00 No 40mg [facility] Bupivicaine [place] Bupivicaine [place] 0 04-20 00:00: 00 No 2.5mg [facility] Kenalog (Triamcinol one) Kenalog (Triamcinol one) 0 04-20 00:00: 00 No 40mg [facility] Bupivicaine [place] Bupivicaine [place] 0 04-20 00:00: 00 No [facility] Kenalog (Triamcinol one) Kenalog (Triamcinol one) 0 04-20 00:00: 00 No 40mg [facility] Bupivicaine [place] Bupivicaine [place] 0 01-24 00:00: 00 No 2.5mg [facility] Kenalog (Triamcinol one) Kenalog (Triamcinol one) 0 01-24 00:00: 00 No 40mg [facility] Bupivicaine [place] Bupivicaine [place] 0 01-24 00:00: 00 No 2.5mg [facility] Kenalog (Triamcinol one) Kenalog (Triamcinol one) 0 01-24 00:00: 00 No 40mg [facility] Bupivicaine [place] Bupivicaine [place] 0 01-24 00:00: 00 No [facility] Kenalog (Triamcinol one) Kenalog (Triamcinol one) 0 01-24 00:00: 00 No 40mg [facility] No known medications 0 2-17 13:44: 56 No [facility] No known medications 11-16 13:44: 56 No [facility] Depo Medrol (40mg) Depo Medrol (40mg) 04-21 00:00: 00 No 1mL [facility] Bupivicaine [place] Bupivicaine [place] 04-21 00:00: 00 No 5mL [facility] Depo Medrol (40mg) Depo Medrol (40mg) 04-21 00:00: 00 No 1mL [facility] Bupivicaine [place] Bupivicaine [place] 04-21 00:00: 00 No 5mL [facility] Depo Medrol (40mg) Depo Medrol (40mg) 04-21 00:00: 00 No 1mL [facility] Bupivicaine [place] Bupivicaine [place] 04-21 00:00: 00 No 5mL [facility] Meloxicam 7.5 MG Meloxicam 7.5 MG No Meloxicam 7.5 MG Lisinopril 20 MG Lisinopril 20 MG No Lisinopril 20 MG Atorvastati n Calcium 40 MG Atorvastati n Calcium 40 MG No Atorvastat in Calcium 40 MG Acetaminoph en-Codeine #3 Acetaminoph en-Codeine #3 No Acetaminop hen-Codein e #3 Levothyroxi ne Sodium 50 MCG Levothyroxi ne Sodium 50 MCG No Levothyrox ine Sodium 50 MCG Meloxicam 7.5 MG Meloxicam 7.5 MG No Meloxicam 7.5 MG Levothyroxi ne Sodium 50 MCG Levothyroxi ne Sodium 50 MCG No Levothyrox ine Sodium 50 MCG Lisinopril 20 MG Lisinopril 20 MG No Lisinopril 20 MG Acetaminoph en-Codeine #3 Acetaminoph en-Codeine #3 No Acetaminop hen-Codein e #3 Atorvastati n Calcium 40 MG Atorvastati n Calcium 40 MG No Atorvastat in Calcium 40 MG Advil Advil No Advil Levothyroxi ne Sodium 50 MCG Levothyroxi ne Sodium 50 MCG No Levothyrox ine Sodium 50 MCG Meloxicam 7.5 MG Meloxicam 7.5 MG No Meloxicam 7.5 MG Advil Advil No Advil Acetaminoph en-Codeine #3 Acetaminoph en-Codeine #3 No Acetaminop hen-Codein e #3 Lisinopril 20 MG Lisinopril 20 MG No Lisinopril 20 MG Atorvastati n Calcium 40 MG Atorvastati n Calcium 40 MG No Atorvastat in Calcium 40 MG Levothyroxi ne Sodium 50 MCG Levothyroxi ne Sodium 50 MCG No Levothyrox ine Sodium 50 MCG Lisinopril 20 MG Lisinopril 20 MG No Lisinopril 20 MG Advil Advil No Advil Furosemide Furosemide No Furosemide Meloxicam 7.5 MG Meloxicam 7.5 MG No Meloxicam 7.5 MG Acetaminoph en-Codeine #3 Acetaminoph en-Codeine #3 No Acetaminop hen-Codein e #3 Atorvastati n Calcium 40 MG Atorvastati n Calcium 40 MG No Atorvastat in Calcium 40 MG Metoprolol Succinate ER Metoprolol Succinate ER No Metoprolol Succinate ER Acetaminoph en-Codeine #3 Acetaminoph en-Codeine #3 No Acetaminop hen-Codein e #3 [facility] Levothyroxi ne Sodium 50 MCG Levothyroxi ne Sodium 50 MCG No Levothyrox ine Sodium 50 MCG [facility] Lisinopril 20 MG Lisinopril 20 MG No Lisinopril 20 MG [facility] Advil Advil No Advil [facility] Atorvastati n Calcium 40 MG Atorvastati n Calcium 40 MG No Atorvastat in Calcium 40 MG [facility] Meloxicam 7.5 MG Meloxicam 7.5 MG No Meloxicam 7.5 MG [facility] Advil Advil No Advil Meloxicam 7.5 MG Meloxicam 7.5 MG No Meloxicam 7.5 MG Lisinopril 20 MG Lisinopril 20 MG No Lisinopril 20 MG Atorvastati n Calcium 40 MG Atorvastati n Calcium 40 MG No Atorvastat in Calcium 40 MG Acetaminoph en-Codeine #3 Acetaminoph en-Codeine #3 No Acetaminop hen-Codein e #3 Levothyroxi ne Sodium 50 MCG Levothyroxi ne Sodium 50 MCG No Levothyrox ine Sodium 50 MCG Advil Advil No Advil Vital Signs Vital Name Observation Time Observation Value Comments S ource Systolic blood pressure 2023-06-04 18:09:00 143 mm[Hg] [facility] Diastolic blood pressure 2023-06-04 18:09:00 73 mm[Hg] [facility] Heart rate 2023-06-04 18:09:00 83 /min [facility] Body temperature 2023-06-04 18:07:00 36.06 Geovanna [facility] Respiratory rate 2023-06-04 18:07:00 16 /min [facility] Body height 2023-06-04 18:07:00 152.4 cm [facility] Body weight 2023-06-04 18:07:00 73.483 kg [facility] BMI 2023-06-04 18:07:00 31.64 kg/m2 [facility] Oxygen saturation in Arterial blood by Pulse oximetry 2023-06-04 18:07:00 99 /min [facility] Systolic blood pressure 2023-05-21 18:50:00 168 mm[Hg] Patient denies s/s of coronary distress [facility] Diastolic blood pressure 2023-05-21 18:50:00 75 mm[Hg] Patient denies s/s of coronary distress [facility] Heart rate 2023-05-21 18:47:00 78 /min [facility] Body temperature 2023-05-21 18:47:00 36.56 Geovanna [facility] Respiratory rate 2023-05-21 18:47:00 20 /min [facility] Body height 2023-05-21 18:47:00 152.4 cm [facility] Body weight 2023-05-21 18:47:00 76.204 kg [facility] BMI 2023-05-21 18:47:00 32.81 kg/m2 [facility] Oxygen saturation in Arterial blood by Pulse oximetry 2023-05-21 18:47:00 96 /min [facility] Systolic blood pressure 2023-05-19 16:38:00 154 mm[Hg] [facility] Diastolic blood pressure 2023-05-19 16:38:00 62 mm[Hg] [facility] Heart rate 2023-05-19 16:38:00 60 /min [facility] Body temperature 2023-05-19 16:38:00 36.72 Geovanna [facility] Respiratory rate 2023-05-19 16:38:00 19 /min [facility] Oxygen saturation in Arterial blood by Pulse oximetry 2023-05-19 16:38:00 96 /min [facility] Body height 2023-05-17 16:00:00 152.4 cm [facility] Body weight 2023-05-17 16:00:00 76.3 kg [facility] BMI 2023-05-17 16:00:00 32.85 kg/m2 [facility] Systolic blood pressure 2023-05-16 05:00:00 124 mm[Hg] [facility] Diastolic blood pressure 2023-05-16 05:00:00 54 mm[Hg] [facility] Heart rate 2023-05-16 05:00:00 92 /min [facility] Respiratory rate 2023-05-16 05:00:00 20 /min [facility] Oxygen saturation in Arterial blood by Pulse oximetry 2023-05-16 05:00:00 91 /min [facility] Body temperature 2023-05-16 01:29:00 36.5 Geovanna [facility] Body height 2023-05-16 01:29:00 152.4 cm [facility] Body weight 2023-05-16 01:29:00 79.379 kg [facility] BMI 2023-05-16 01:29:00 34.18 kg/m2 [facility] Systolic blood pressure 2023-04-11 16:20:00 121 mm[Hg] [facility] Diastolic blood pressure 2023-04-11 16:20:00 56 mm[Hg] [facility] Heart rate 2023-04-11 16:20:00 67 /min [facility] Body temperature 2023-04-11 16:20:00 35.89 Geovanna [facility] Respiratory rate 2023-04-11 16:20:00 18 /min [facility] Oxygen saturation in Arterial blood by Pulse oximetry 2023-04-11 16:20:00 99 /min [facility] Body weight 2023-04-11 09:09:00 79 kg [facility] BMI 2023-04-11 09:09:00 34.01 kg/m2 [facility] Body height 2023-04-07 18:29:00 152.4 cm [facility] Systolic blood pressure 2023-04-10 17:26:57 163 mm[Hg] [facility] Diastolic blood pressure 2023-04-10 17:26:57 102 mm[Hg] [facility] Respiratory rate 2023-04-10 17:26:57 17 /min [facility] Oxygen saturation in Arterial blood by Pulse oximetry 2023-04-10 17:26:57 96 /min [facility] Heart rate 2023-04-10 16:06:01 85 /min [facility] Body temperature 2023-04-10 13:23:00 36.78 Geovanna [facility] Body weight 2023-04-10 09:09:00 82.101 kg [facility] BMI 2023-04-10 09:09:00 34.01 kg/m2 [facility] Body height 2023-04-07 18:29:00 152.4 cm [facility] Systolic blood pressure 2023-04-08 20:38:00 129 mm[Hg] [facility] Diastolic blood pressure 2023-04-08 20:38:00 64 mm[Hg] [facility] Heart rate 2023-04-08 20:38:00 59 /min [facility] Body temperature 2023-04-08 20:38:00 37.06 Geovanna [facility] Respiratory rate 2023-04-08 20:38:00 18 /min [facility] Oxygen saturation in Arterial blood by Pulse oximetry 2023-04-08 20:38:00 96 /min [facility] Body height 2023-04-07 18:29:00 152.4 cm [facility] Body weight 2023-04-07 13:42:00 84.369 kg [facility] BMI 2023-04-07 13:42:00 36.33 kg/m2 [facility] Systolic blood pressure 2023-01-26 19:40:00 181 mm[Hg] [facility] Diastolic blood pressure 2023-01-26 19:40:00 81 mm[Hg] [facility] Heart rate 2023-01-26 19:40:00 79 /min [facility] Respiratory rate 2023-01-26 19:40:00 22 /min [facility] Oxygen saturation in Arterial blood by Pulse oximetry 2023-01-26 19:40:00 100 /min [facility] Body temperature 2023-01-26 17:00:00 36.11 Geovanna [facility] Body height 2023-01-26 17:00:00 154.9 cm [facility] Body weight 2023-01-26 17:00:00 84.369 kg [facility] BMI 2023-01-26 17:00:00 35.14 kg/m2 [facility] height 2022-04-10 13:00:00 61.5 [in_i] [facility] weight 2022-04-10 13:00:00 200 [lb_av] [facility] temperature 2022-04-10 13:00:00 97.3 [degF] [facility] bmi 2022-04-10 13:00:00 37.17 kg/m2 [facility] blood pressure systolic 2022-04-10 13:00:00 136 mm[Hg] [facility] blood pressure diastolic 2022-04-10 13:00:00 84 mm[Hg] [facility] height 2022-01-15 14:00:00 61.5 [in_i] [facility] weight 2022-01-15 14:00:00 205 [lb_av] [facility] temperature 2022-01-15 14:00:00 97.6 [degF] [facility] bmi 2022-01-15 14:00:00 38.1 kg/m2 [facility] blood pressure systolic 2022-01-15 14:00:00 156 mm[Hg] [facility] blood pressure diastolic 2022-01-15 14:00:00 94 mm[Hg] [facility] height 2021-11-30 10:30:00 61.5 [in_i] [facility] weight 2021-11-30 10:30:00 205 [lb_av] [facility] temperature 2021-11-30 10:30:00 97.7 [degF] [facility] bmi 2021-11-30 10:30:00 38.1 kg/m2 [facility] blood pressure systolic 2021-11-30 10:30:00 160 mm[Hg] [facility] blood pressure diastolic 2021-11-30 10:30:00 96 mm[Hg] [facility] height 2021-10-24 13:00:00 61.5 [in_i] [facility] weight 2021-10-24 13:00:00 205 [lb_av] [facility] temperature 2021-10-24 13:00:00 97.6 [degF] [facility] bmi 2021-10-24 13:00:00 38.1 kg/m2 [facility] blood pressure systolic 2021-10-24 13:00:00 148 mm[Hg] [facility] blood pressure diastolic 2021-10-24 13:00:00 90 mm[Hg] [facility] height 2021-04-20 13:00:00 61.5 [in_i] [facility] weight 2021-04-20 13:00:00 205.6 [lb_av] [facility] bmi 2021-04-20 13:00:00 38.21 kg/m2 [facility] blood pressure systolic 2021-04-20 13:00:00 183 mm[Hg] [facility] blood pressure diastolic 2021-04-20 13:00:00 66 mm[Hg] [facility] Procedures Procedure Date / Time Performed Performing Clinician Source AC PANEL 21 + LACTIC ACID 2023-05-19 14:18:00 Evangelista Lopez [facility] CBC WITH DIFF 2023-05-19 10:37:00 Sudha sutton, [facility] PHOSPHORUS 2023-05-19 09:16:00 Sudha Zamud io, [facility] MAGNESIUM 2023-05-19 09:16:00 Sudha sutton [facility] BASIC METABOLIC PANEL (NA, K, CL, CO2, GLUCOSE, BUN, CREATININE, CA) 2023-05-19 09:16:00 Sudha Rossi Lc [facility] PHOSPHORUS 2023 11:48:00 Sudha Jasmeet sutton, [facility] MAGNESIUM 2023 11:48:00 Sudharoselia sutton, [facility] BASIC METABOLIC PANEL (NA, K, CL, CO2, GLUCOSE, BUN, CREATININE, CA) 2023 11:48:00 Sudha Rossi [facility] CBC WITH DIFF 2023 11:48:00 Sudha ustton [facility] TROPONIN I 2023-05-17 23:24:00 Sudha sutton, [facility] PHOSPHORUS 2023-05-17 11:22:00 Nickie Sanabria [facility] MAGNESIUM 2023-05-17 11:22:00 Nickie Sanabria [facility] BASIC METABOLIC PANEL (NA, K, CL, CO2, GLUCOSE, BUN, CREATININE, CA) 2023-05-17 11:22:00 Nickie Sanabria [facility] CBC WITH DIFF 2023-05-17 11:22:00 Nickie Sanabria [facility] [place] UPPER GI SERIES 2023-05-16 19:55:00 [facility] 2023-05-16 18:36:13 Kelley Lopez [facility] MRSA / MSSA SCREEN BY PCR, RAFY 2023-05-16 17:08:00 Fabio Danielson [facility] TRANSTHORACIC ECHO (TTE) COMPLETE W/ CONTRAST 2023-05-16 14:31:46 Fabio Danielson Jacqueline [facility] ABORH CONFIRMATION (LAB ONLY) 2023-05-16 13:51:00 Thiago Bee [facility] HB ECG ROUTINE & RHYTHM STRIP 2023-05-16 11:23:33 Fabio Danielson Jacqueline [facility] HB ABO GROUPING 2023-05-16 09:06:00 Juan Lopez [facility] LACTIC ACID WHOLE BLOOD 2023-05-16 09:06:00 Jacqueline Elaine [facility] PHOSPHORUS 2023-05-16 08:58:00 Jacqueline Lopez [facility] MAGNESIUM 2023-05-16 08:58:00 Jacqueline Lopez [facility] BASIC METABOLIC PANEL (NA, K, CL, CO2, GLUCOSE, BUN, CREATININE, CA) 2023-05-16 08:58:00 Jacqueline Lopez [facility] CBC WITH DIFF 2023-05-16 08:58:00 Fabio Danielson Jacqueline [facility] GLYCOSYLATED HEMOGLOBIN (A1C) 2023-05-16 08:58:00 Kelley Lopez [facility] PROTHROMBIN TIME / INR 2023-05-16 08:58:00 Fabio Danielson [facility] ACTIVATED PARTIAL THRMPLAS LEONIDAS 2023-05-16 08:58:00 Fabio Danielson Jacqueline [facility] FIBRINOGEN 2023-05-16 08:58:00 Jacqueline Lopez [facility] CT ABDOMEN PELVIS WO CONTRAST 2023-05-16 03:29:39 Tiffany Patterson [facility] ASSIGNMENT OF BENEFITS 2023-05-16 03:08:11 Docto r Unassigned, [place] [facility] NOTICE OF PRIVACY PRACTICES 2023-05-16 03:07:22 Doctor Unassigned, [place] [facility] XR CHEST 1 VW 2023-05-16 03:04:36 Tiffany Clements [facility] CONSENT/REFUSAL FOR DIAGNOSIS AND TREATMENT 2023-05-16 03:04:02 Doctor Unassigned, [place] [facility] CBC WITH DIFF 2023-05-16 01:54:00 Tiffany Clements [facility] LIPASE 2023-05-16 01:52:00 Tiffany Clements [facility] TROPONIN I 2023-05-16 01:52:00 Tiffany Clements [facility] THYROID STIMULATING HORMONE 2023-05-16 01:52:00 Tiffany Patterson [facility] COMP. METABOLIC PANEL ([id number]) 2023-05-16 01:52:00 Tiffany Patterson [facility] N-TERMINAL PRO-BNP 2023-05-16 01:52:00 Tiffany Patterson [facility] DNR 2023-04-23 05:01:00 Doctor Unass igned, [place] [facility] MAGNESIUM 2023-04-11 10:35:00 Venita Rivera [facility] BASIC METABOLIC PANEL (NA, K, CL, CO2, GLUCOSE, BUN, CREATININE, CA) 2023-04-11 10:35:00 Venita Rivera [facility] CBC WITH DIFF 2023-04-11 10:35:00 Venita Rivera [facility] MAGNESIUM 2023-04-11 10:35:00 Venita Rivera [facility] BASIC METABOLIC PANEL (NA, K, CL, CO2, GLUCOSE, BUN, CREATININE, CA) 2023-04-11 10:35:00 Venita Rivera [facility] CBC WITH DIFF 2023-04-11 10:35:00 Venita Rivera [facility] CARDIAC CATHETERIZATION 2023-04-10 18:05:00 Cassandra Samson [facility] CARDIAC CATHETERIZATION 2023-04-10 18:05:00 [facility] 2023-04-10 18:05:00 JoviCassandra pinto [facility] CARDIAC CATHETERIZATION 2023-04-10 18:05:00 [facility] 2023-04-10 18:05:00 [facility]ARDIAC CATHETERIZATION 2023-04-10 18:05:00 [facility]TER[facility]ATION 2023-04-10 18:05:00 [facility] CARDIAC CATHETERIZATION 2023-04-10 18:05:00 [facility] CARDIAC CATHETERIZATION 2023-04-10 18:05:00 [facility] CARDIAC CATHETERIZATION 2023-04-10 18:05:00 [facility] CARDIAC CATHETERIZATION 2023-04-10 18:05:00 [facility]ARDIAC CATHETERIZATION 2023-04-10 18:05:00 [facility] CARDIAC CATHETERIZATION 2023-04-10 18:05:00 [facility] CARDIAC CATHETERIZATION 2023-04-10 18:05:00 [facility] CARDIAC CATHETERIZATION 2023-04-10 18:05:00 JoviCassandra pinto [facility] CARDIAC CATHETERIZATION 2023-04-10 18:05:00 JoviCassandra [facility] POCT ACT LOW RANGE 2023-04-10 17:47:00 JoviZacarias r [facility] POCT ACT LOW RANGE 2023-04-10 17:47:00 Jovi Zacarias U r [facility] POCT ACT LOW RANGE 2023-04-10 16:41:00 Zacarias Samson [facility] POCT ACT LOW RANGE 2023-04-10 16:41:00 Zacarias Samson [facility] MAGNESIUM 2023-04-10 10:22:00 Keshawn Gresham [facility] BASIC METABOLIC PANEL (NA, K, CL, CO2, GLUCOSE, BUN, CREATININE, CA) 2023-04-10 10:22:00 Keshawn Gresham [facility] CBC WITH DIFF 2023-04-10 10:22:00 Keshawn Gresham [facility] ACTIVATED PARTIAL THRMPLAS LEONIDAS 2023-04-10 10:22:00 Keshawn Gresham [facility] MAGNESIUM 2023-04-10 10:22:00 Keshawn Gresham [facility] BASIC METABOLIC PANEL (NA, K, CL, CO2, GLUCOSE, BUN, CREATININE, CA) 2023-04-10 10:22:00 Keshawn Gersham [facility] CBC WITH DIFF 2023-04-10 10:22:00 Keshawn Gresham [facility] ACTIVATED PARTIAL THRMPLAS LEONIDAS 2023-04-10 10:22:00 Keshawn Gresham [facility] ACTIVATED PARTIAL THRMPLAS LEONIDAS 2023-04-10 03:28:00 Keshawn Gresham [facility] ACTIVATED PARTIAL THRMPLAS LEONIDAS 2023-04-10 03:28:00 Keshawn Gresham [facility] ACTIVATED PARTIAL THRMPLAS LEONIDAS 2023-04-09 20:36:00 Apolinar [facility] ACTIVATED PARTIAL THRMPLAS LEONIDAS 2023-04-09 20:36:00 Apolinar [facility] ACTIVATED PARTIAL THRMPLAS LEONIDAS 2023-04-09 14:09:00 Everette Jiang [facility] ACTIVATED PARTIAL THRMPLAS LEONIDAS 2023-04-09 14:09:00 Everette Jiang [facility] ACTIVATED PARTIAL THRMPLAS LEONIDAS 2023-04-09 14:09:00 Everette Jiang [facility] ACTIVATED PARTIAL THRMPLAS LEONIDAS 2023-04-09 12:34:00 Keshawn Gresham [facility] ACTIVATED PARTIAL THRMPLAS LEONIDAS 2023-04-09 12:34:00 Keshawn Gresham [facility] ACTIVATED PARTIAL THRMPLAS LEONIDAS 2023-04-09 12:34:00 Keshawn Gresham [facility] MAGNESIUM 2023-04-09 05:52:00 Keshawn Gresham [facility] BASIC METABOLIC PANEL (NA, K, CL, CO2, GLUCOSE, BUN, CREATININE, CA) 2023-04-09 05:52:00 Keshawn Gresham [facility] LIPID PANEL (64198)(TOTAL CHOLESTEROL, TRIGLYCERIDES, HDL) 2023-04-09 05:52:00 Venita Rivera [facility] CBC WITH DIFF 2023-04-09 05:52:00 Keshawn Gresham [facility] ACTIVATED PARTIAL THRMPLAS LEONIDAS 2023-04-09 05:52:00 Everette Jiang [facility] MAGNESIUM 2023-04-09 05:52:00 Keshawn Gresham [facility] BASIC METABOLIC PANEL (NA, K, CL, CO2, GLUCOSE, BUN, CREATININE, CA) 2023-04-09 05:52:00 Keshawn Gresham [facility] LIPID PANEL (09912)(TOTAL CHOLESTEROL, TRIGLYCERIDES, HDL) 2023-04-09 05:52:00 Venita Rivera [facility] CBC WITH DIFF 2023-04-09 05:52:00 Keshawn Gresham [facility] ACTIVATED PARTIAL THRMPLAS LEONIDAS 2023-04-09 05:52:00 Everette Jiang [facility] MAGNESIUM 2023-04-09 05:52:00 Keshawn Gresham [facility] BASIC METABOLIC PANEL (NA, K, CL, CO2, GLUCOSE, BUN, CREATININE, CA) 2023-04-09 05:52:00 Keshawn Gresham [facility] LIPID PANEL (37496)(TOTAL CHOLESTEROL, TRIGLYCERIDES, HDL) 2023-04-09 05:52:00 [facility] 2023-04-09 05:52:00 Keshawn Gresham [facility] ACTIVATED PARTIAL THRMPLAS LEONIDAS 2023-04-09 05:52:00 Everette Jiang [facility] TRANSTHORACIC ECHO (TTE) COMPLETE W/ CONTRAST 2023-04-08 21:43:00 Keshawn Gresham [facility] TRANSTHORACIC ECHO (TTE) COMPLETE W/ CONTRAST 2023-04-08 21:43:00 Keshawn Gresham [facility] TRANSTHORACIC ECHO (TTE) COMPLETE W/ CONTRAST 2023-04-08 21:43:00 Keshawn Gresham [facility] ACTIVATED PARTIAL THRMPLAS LEONIDAS 2023-04-08 19:55:00 Keshawn Gresham [facility] ACTIVATED PARTIAL THRMPLAS LEONIDAS 2023-04-08 19:55:00 Keshawn Gresham [facility] ACTIVATED PARTIAL THRMPLAS LEONIDAS 2023-04-08 19:55:00 Keshawn Gresham [facility] CARDIAC CATHETERIZATION 2023-04-08 17:43:43 Jovi Cassandra uja Ur [facility] CARDIAC CATHETERIZATION 2023-04-08 17:43:43 Jovi Cassandra uja Ur [facility] CARDIAC CATHETERIZATION 2023-04-08 17:43:43 Jovi uja Ur [facility] CARDIAC CATHETERIZATION 2023-04-08 17:43:43 Jovi uja Ur [facility] CARDIAC CATHETERIZATION 2023-04-08 17:43:43 Jovi Cassandra uja Ur [facility] CARDIAC CATHETERIZATION 2023-04-08 17:43:43 Jovi Cassnadra uja Ur [facility] CATH PROCEDURE LOG 2023-04-08 17:15:50 Jovi Cassandrafrank U r [facility] CATH PROCEDURE LOG 2023-04-08 17:15:50 Jovi Cassandrauja U r [facility] CATH PROCEDURE LOG 2023-04-08 17:15:50 Jovi Cassandrafrank U r [facility] HB ECG ROUTINE & RHYTHM STRIP 2023-04-08 12:49:18 Keshawn Gresham [facility] HB ECG ROUTINE & RHYTHM STRIP 2023-04-08 12:49:18 Keshawn Gresham [facility] MAGNESIUM 2023-04-08 11:04:00 Keshawn Gresham [facility] BASIC METABOLIC PANEL (NA, K, CL, CO2, GLUCOSE, BUN, CREATININE, CA) 2023-04-08 11:04:00 Keshawn Gresham [facility] CBC WITH DIFF 2023-04-08 11:04:00 Keshawn Gresham [facility] ACTIVATED PARTIAL THRMPLAS LEONIDAS 2023-04-08 11:04:00 Everette Jiang [facility] MAGNESIUM 2023-04-08 11:04:00 Keshawn Gresham [facility] BASIC METABOLIC PANEL (NA, K, CL, CO2, GLUCOSE, BUN, CREATININE, CA) 2023-04-08 11:04:00 Keshawn Gresham [facility] CBC WITH DIFF 2023-04-08 11:04:00 Keshawn Gresham [facility] ACTIVATED PARTIAL THRMPLAS LEONIDAS 2023-04-08 11:04:00 Everette Jiang [facility] MAGNESIUM 2023-04-08 11:04:00 Keshawn Gresham [facility] BASIC METABOLIC PANEL (NA, K, CL, CO2, GLUCOSE, BUN, CREATININE, CA) 2023-04-08 11:04:00 Keshawn Gresham [facility] CBC WITH DIFF 2023-04-08 11:04:00 Keshawn Gresham [facility] ACTIVATED PARTIAL THRMPLAS LEONIDAS 2023-04-08 11:04:00 Everette Jiang [facility] TROPONIN I 2023-04-08 03:13:00 Amrit [facility] TROPONIN I 2023-04-08 03:13:00 Amrit [facility] TROPONIN I 2023-04-08 03:13:00 Amrit [facility] HB ECG ROUTINE & RHYTHM STRIP 2023-04-08 02:38:49 Amrit [facility] HB ECG ROUTINE & RHYTHM STRIP 2023-04-08 02:38:49 Amrit [facility] TROPONIN I 2023-04-07 23:09:00 Keshawn Gresham [facility] THYROID STIMULATING HORMONE 2023-04-07 23:09:00 Keshawn Gresham [facility] ACTIVATED PARTIAL THRMPLAS LEONIDAS 2023-04-07 23:09:00 Everette Jiang [facility] TROPONIN I 2023-04-07 23:09:00 Keshawn Gresham [facility] THYROID STIMULATING HORMONE 2023-04-07 23:09:00 Keshawn Gresham [facility] ACTIVATED PARTIAL THRMPLAS LEONIDAS 2023-04-07 23:09:00 Everette Jiang [facility] TROPONIN I 2023-04-07 23:09:00 Keshawn Gresham [facility] THYROID STIMULATING HORMONE 2023-04-07 23:09:00 Keshawn Gresham [facility] ACTIVATED PARTIAL THRMPLAS LEONIDAS 2023-04-07 23:09:00 Everette Jiang [facility] CRITICAL CARE 2023-04-07 22:51:34 Everette Jiang [facility] CRITICAL CARE 2023-04-07 22:51:34 Everette Jiang [facility] CRITICAL CARE 2023-04-07 22:51:34 Everette Jiang [facility] HB ECG ROUTINE & RHYTHM STRIP 2023-04-07 19:48:01 Keshawn Gresham [facility] HB ECG ROUTINE & RHYTHM STRIP 2023-04-07 19:48:01 [facility] RHYTHM STRIP 2023-04-07 19:48:01 Keshawn Gresham [facility] CT ANGIOGRAM CHEST 2023-04-07 15:51:42 Apolinar [facility] CT ANGIOGRAM CHEST 2023-04-07 15:51:42 Apolinar [facility] CT ANGIOGRAM CHEST 2023-04-07 15:51:42 Apolinar [facility] XR CHEST 1 VW 2023-04-07 14:08:00 Everette Jiang [facility] XR CHEST 1 VW 2023-04-07 14:08:00 Everette Jiang [facility] XR CHEST 1 2023-04-07 14:08:00 Everette Jiang [facility] HB ECG ROUTINE & RHYTHM STRIP 2023-04-07 13:45:49 Apolinar [facility] HB ECG ROUTINE & RHYTHM STRIP 2023-04-07 13:45:49 Apolinar [facility] HB ECG ROUTINE & RHYTHM STRIP 2023-04-07 13:45:49 Everette Jiang [facility] LIPASE 2023-04-07 13:45:00 Everette Jiang [facility] MAGNESIUM 2023-04-07 13:45:00 [facility] TROPONIN I 2023-04-07 13:45:00 [facility] COMP. METABOLIC PANEL (89150) 2023-04-07 13:45:00 Everette Jiang [facility] CBC WITH DIFF 2023-04-07 13:45:00 Everette Jiang [facility] GLYCOSYLATED HEMOGLOBIN (A1C) 2023-04-07 13:45:00 Keshawn Gresham [facility] PROTHROMBIN TIME / INR 2023-04-07 13:45:00 Anibal Jiang [facility] ACTIVATED PARTIAL THRMPLAS LEONIDAS 2023-04-07 13:45:00 Everette Jiang [facility] N-TERMINAL PRO-BNP 2023-04-07 13:45:00 Everette Jiang [facility] LIPASE 2023-04-07 13:45:00 [facility] MAGNESIUM 2023-04-07 13:45:00 [facility] TROPONIN I 2023-04-07 13:45:00 [facility] COMP. METABOLIC PANEL (37332) 2023-04-07 13:45:00 Everette Jiang [facility] CBC WITH DIFF 2023-04-07 13:45:00 Everette Jiang [facility] GLYCOSYLATED HEMOGLOBIN (A1C) 2023-04-07 13:45:00 Keshawn Gresham [facility] PROTHROMBIN TIME / INR 2023-04-07 13:45:00 Anibal Jiang [facility] ACTIVATED PARTIAL THRMPLAS LEONIDAS 2023-04-07 13:45:00 Everette Jiang [facility] N-TERMINAL PRO-BNP 2023-04-07 13:45:00 Everette Jiang [facility] LIPASE 2023-04-07 13:45:00 [facility] MAGNESIUM 2023-04-07 13:45:00 [facility] TROPONIN I 2023-04-07 13:45:00 [facility] COMP. METABOLIC PANEL (93579) 2023-04-07 13:45:00 Everette Jiang [facility] CBC WITH DIFF 2023-04-07 13:45:00 Everette Jiang [facility] GLYCOSYLATED HEMOGLOBIN (A1C) 2023-04-07 13:45:00 Keshawn Gresham [facility] PROTHROMBIN TIME / INR 2023-04-07 13:45:00 Anibal Jiang [facility] ACTIVATED PARTIAL THRMPLAS LEONIDAS 2023-04-07 13:45:00 Everette Jiang [facility] N-TERMINAL PRO-BNP 2023-04-07 13:45:00 Everette Jiang [facility] CONSENT/REFUSAL FOR DIAGNOSIS AND TREATMENT 2023-04-07 13:39:27 Doctor Unassigned, Hanson [facility] CONSENT/REFUSAL FOR DIAGNOSIS AND TREATMENT 2023-04-07 13:39:27 Doctor Unassigned, Hanson [facility] CONSENT/REFUSAL FOR DIAGNOSIS AND TREATMENT 2023-04-07 13:39:27 Doctor Unassigned, Hanson [facility] HOSPITAL ADMISSION 2023-04-07 05:01:00 Doctor Un assigned, Hanson [facility] HOSPITAL ADMISSION 2023-04-07 05:01:00 Doctor Un assigned, Hanson [facility] CT ABDOMEN PELVIS WO CONTRAST 2023-01-26 18:16:21 Brittany Martel [facility] URINALYSIS 2023-01-26 17:23:00 Brittany Martel [facility] DEXA AXIAL (HIP AND SPINE) 2022-11-21 17:01:14 Sergo Lema [facility] ASSIGNMENT OF BENEFITS 2022-11-21 16:20:43 Docto r Unassigned, Hanson [facility] XR CHEST 2 VW 2021-07-21 16:37:00 Joyce Serna [facility] ASSIGNMENT OF BENEFITS 2021-07-21 16:08:58 Docto r Unassigned, Hanson [facility] Encounters Start Date/Time End Date/Time Encounter Type Admission Type Attending Clinicians Care Facility Care Department Encounter ID Source 2022-04-10 14:23:00 Outpatient Joyce Serna [facility] [id number] [facility] 2022-01-12 10:19:00 Outpatient [facility] [id number] [facility] 2021-11-29 14:26:00 Outpatient STLMLC [facility] [id number] [facility] 2021-10-31 15:46:01 Outpatient STLMLC [facility] [id number] [facility] 2021-10-25 14:21:49 Outpatient [facility]ML[facility] [id number] [facility] 2021-10-25 12:56:33 [facility]patient [facility] [id number] [facility] 2021-10-25 12:46:31 Outpatient [facility] [id number] [facility] 2023-06-04 13:30:00 2023-06-04 14:12:20 Outpatient SERENE MILLSSHUA [facility] [id number] [facility] 2023-06-04 13:30:00 2023-06-04 14:12:20 Office Visit Service/Gen surg, Surgery [facility] 1.2.840.114 350.1.13.10 4.2.7.2.686 [id number] [facility] 2023-05-21 14:00:00 2023-05-21 14:18:20 Outpatient KEILA GARCIA [facility] [id number] [facility] 2023-05-21 14:00:00 2023-05-21 14:18:20 Office Visit Service/Gen surg, Surgery Keila Powell [facility] [id number] 350.1.13.10 4.2.7.2.686 [id number] [facility] 2023-05-21 00:00:00 2023-05-21 00:00:00 Transition of Care Ruma Salinas [id number] 350.1.13.10 4.2.7.2.686 [id number] [facility] 2023-05-16 03:21:00 2023-05-19 14:40:00 Inpatient U KEILA HAMMER [facility] MARY [id number] [facility] 2023-05-16 03:21:00 2023-05-19 14:40:00 [facility] 1.840.114 350.1.13.10 4.2.7.2.686 [id number] [facility] 2023-05-15 20:28:00 2023-05-16 02:02:00 Emergency X TIFFANY PATTERSON EUNICE [facility] ERT [id number] [facility] 2023-05-15 20:28:00 2023-05-16 02:02:00 Emergency Tiffany Patterson [facility] 1.2840.114 350.1.13.10 4.2.7.2.686 [id number] [facility] 2023-05-14 13:50:00 2023-05-14 18:17:00 Emergency Emergency Iam Brooke [facility] [id number] [facility] 2023-05-14 13:50:00 2023-05-14 18:17:00 Emergency Emergency Iam Brooke [facility] [id number] [facility] 2023-04-23 00:00:00 2023-04-23 00:00:00 Orders Only Doctor Unassigned, Hanson [facility] 1.2.840.114 350.1.13.10 4.2.7.2.686 [id number] [facility] 2023-04-12 00:00:00 2023-04-12 00:00:00 Transition of Care Ruma Salinas 1.2.840.114 350.1.13.10 4.2.7.2.686 [id number] [facility] 2023-04-07 08:43:00 2023-04-11 14:05:00 Inpatient X ZACARIAS SAMSON SHUJA [facility] [id number] [facility] 2023-04-07 08:43:00 2023-04-11 14:05:00 Hospital Encounter Everette Jiang [facility] 1.2.840.114 350.1.13.10 4.2.7.2.686 [id number] [facility] 2023-04-10 10:29:00 2023-04-10 12:29:00 Surgery [facility] 1.2.840.114 350.1.13.10 4.2.7.2.686 [id number] [facility] 2023-04-08 17:00:00 2023-04-08 19:00:00 Surgery [facility] 1.2.840.114 350.1.13.10 4.2.7.2.686 [id number] [facility] 2023-01-26 12:02:00 2023-01-26 15:31:00 Emergency X BRITTANY MARTEL [facility] ERT [id number] [facility] 2023-01-26 12:02:00 2023-01-26 15:31:00 Emergency Brittany Martel [facility] 1.2.840.114 350.1.13.10 4.2.7.2.686 [id number] [facility] 2022-11-21 10:24:44 2022-11-21 23:59:00 Outpatient R RADIOLOGY [facility] [id number] [facility] 2022-11-21 10:24:44 2022-11-21 23:59:00 Hospital Encounter Radiology [facility] 1.2.840.114 350.1.13.10 4.2.7.2.686 [id number] [facility] 2022-11-21 00:00:00 2022-11-21 00:00:00 Orders Only Doctor Unassigned, Hanson [facility] 1.2.840.114 350.1.13.10 4.2.7.2.686 [id number] [facility] 2022-04-10 00:00:00 2022-04-10 00:00:00 OFFICE VISIT ESTAB PT LEVEL 4 STLMLC STLMLC [id number] [facility] 2022-01-15 00:00:00 2022-01-15 00:00:00 OFFICE VISIT ESTAB PT LEVEL 4 STLMLC STLMLC [id number] [facility] 2021-11-30 00:00:00 2021-11-30 00:00:00 OFFICE VISIT ESTAB PT LEVEL 4 STLMLC STLMLC [id number] [facility] 2021-11-13 00:00:00 2021-11-13 00:00:00 (TEL) STLMLC STLMLC [id number] [facility] 2021-10-24 00:00:00 2021-10-24 00:00:00 OFFICE VISIT ESTAB PT LEVEL 4 STLMLC STLMLC [id number] [facility] 2021-07-21 11:12:29 2021-07-21 23:59:00 Hospital Encounter Radiology [facility] 1.2.840.114 350.1.13.10 4.2.7.2.686 [id number] [facility] 2021-07-21 11:15:00 2021-07-21 11:15:00 Outpatient R ZENA KEILA [facility] [id number] [facility] 2021-07-21 00:00:00 2021-07-21 00:00:00 Orders Only Doctor Unassigned, Hanson [facility] 1.2.840.114 350.1.13.10 4.2.7.2.686 [id number] [facility] 2021-04-20 00:00:00 2021-04-20 00:00:00 OFFICE VISIT ESTAB PT LEVEL 4 STLMLC STLMLC [id number] [facility] 2021-01-24 00:00:00 2021-01-24 00:00:00 Outpatient STLMLC STLMLC [id number] [facility] 2020-05-13 13:50:00 2020-05-13 13:50:00 Outpatient R ROCAEL GARCIA [facility] [id number] [facility] 2020-01-04 08:45:00 2020-01-04 08:45:00 Outpatient R JUSTA SANTOS [facility] [id number] [facility] 2019-12-07 13:45:00 2019-12-07 13:45:00 Outpatient R JUSTA SANTOS [facility] [id number] [facility] 2019-12-02 13:20:00 2019-12-02 13:20:00 Outpatient R TINY CHINCHILLA [facility] [id number] [facility] 2019-11-16 13:52:50 2019-11-16 23:59:00 Outpatient R JUSTA SANTOS [facility] [id number] [facility] Results Test Description Test Time Test Comments Results Result Co mments Source [facility] WITH UOEB7068-11-01 11:00:40* Test Item Value Reference Range Interpretation Comme nts WBC (test code = 6690-2) 7.50 See_Comment [Automated messa ge] The system which generated this result transmitted reference range: 4.30 - 11.10 10*3/?L. The reference range was not used to interpret this result as normal/abnormal. RBC (test code = 789-8) 2.92 See_Comment L [Automated messa ge] The system which generated this result transmitted reference range: 3.93 - 5.25 10*6/?L. The reference range was not used to interpret this result as normal/abnormal. HGB (test code = 718-7) 9.4 g/dL 11.6-15.0 L HCT (test code = 4544-3) 28.6 % 35.7-45.2 L MCV (test code = 787-2) 97.9 fL 80.6-95.5 H MCH (test code = 785-6) 32.2 pg 25.9-32.8 MCHC (test code = 786-4) 32.9 g/dL 31.6-35.1 RDW-SD (test code = 50549-0) 47.6 fL 39.0-49.9 RDW-CV (test code = 788-0) 13.2 % 12.0-15.5 PLT (test code = 777-3) 315 See_Comment [Automated messa ge] The system which generated this result transmitted reference range: 166 - 358 10*3/?L. The reference range was not used to interpret this result as normal/abnormal. MPV (test code = 33582-2) 9.0 fL 9.5-12.9 L NRBC/100 WBC (test code = 9321679933) 0.0 See_Comment [Automated [employer] ssage] The system which generated this result transmitted reference range: 0.0 - 10.0 /100 WBCs. The reference range was not used to interpret this result as normal/abnormal. NRBC x10^3 (test code = 0637009550) See_Comment [Automated messa ge] The system which generated this result transmitted reference range: 10*3/?L. The reference range was not used to interpret this result as normal/abnormal. GRAN MAT (NEUT) % (test code = 770-8) 65.7 % IMM GRAN % (test code = 1558675069) 0.40 % LYMPH % (test code = 736-9) 17.9 % MONO % (test code = 5905-5) 7.9 % EOS % (test code = 713-8) 7.3 % BASO % (test code = 706-2) 0.8 % GRAN MAT x10^3(ANC) (test code = 3919734038) 4.93 10*3/uL 1.88-7.09 IMM GRAN x10^3 (test code = 7294198781) 0.03 10*3/uL 0.00-0.06 LYMPH x10^3 (test code = 731-0) 1.34 10*3/uL 1.32-3.29 MONO x10^3 (test code = 742-7) 0.59 10*3/uL 0.33-0.92 EOS x10^3 (test code = 711-2) 0.55 10*3/uL 0.03-0.39 H BASO x10^3 (test code = 704-7) 0.06 10*3/uL 0.01-0.07 Lab Interpretation (test code = 63322-9) [facility] 09:58:12* Test Item Value Reference Range Interpretation Comme nts MAGNESIUM (test code = 4324775134) 2.0 mg/dL 1.7-2.4 Lab Interpretation (test cod e = 50894-6) Normal [facility] 09:58:12* Test Item Value Reference Range Interpretation Comme nts PHOSPHORUS (test code = 5601292012) 3.4 mg/dL 2.5-5.0 Lab Interpretation (test cod e = 04944-4) Normal [facility]OL[facility] (NA, K, CL, CO2, GLUCOSE, BUN, CREATININE, CA)2023-05-19 09:58:11* Test Item Value Reference Range Interpretation Comme nts NA (test code = 6043051223) 141 mmol/L 135-145 K (test code = 0480247038) 4.1 mmol/L 3.5-5.0 CL (test code = 4862458617) 112 mmol/L 98-108 H CO2 TOTAL (test code = 2510721022) 17 mmol/L 23-31 L AGAP (test code = 0362177340) 12 2-16 BUN (test code = 1745630744) 15 mg/dL 7-23 GLUCOSE (test code = 8292504789) 94 mg/dL 70-110 CREATININE (test code = 2523727836) 0.78 mg/dL 0.50-1.04 CALCIUM (test code = 0445968789) 8.3 mg/dL 8.6-10.6 L eGFR (test code = 1191649468) 70.5 mL/min/1.73m2 ELAINE (test code = ELAINE) Association of Glomerular Filtration Rate (GFR) and Staging of Kidney Disease* + --+ --+ ------+| GFR (mL/min/1.73 m2) ?| With Kidney Damage ?| ?Without Kidney Damage+ --------+ --------+ +| ?>90 ?| ?Stage one ?| ? Normal ?+ ---+ ---+ -------+| ?60-89 ?| ?Stage two ?| ? Decreased GFR ? + --+ --+ ------+| ?30-59 ?| ?Stage three ?| ? Stage three ? + --+ --+ ------+| ?15-29 ?| ?Stage four ? | ? Stage four ?+ ---+ ---+ -------+| ?<15 (or dialysis) ? ?| ?Stage five ? | ? Stage five ?+ ---+ ---+ -------+ *Each stage assumes the associated GFR level has been in effect for at least three months. ?Stages 1 to 5, with or without kidney disease, indicate chronic kidney disease. Notes: Determination of stages one and two (with eGFR >59mL/min/1.73 m2) requires estimation of kidney damage for at least three months as defined by structural or functional abnormalities of the kidney, manifested by either:Pathological abnormalities or Markers of kidney damage (including abnormalities in the composition of the blood or urine or abnormalities in imaging tests). Lab Interpretation (test code = 00708-3) [facility]:06* Test Item Value Reference Range Interpretation Comme nts MAGNESIUM (test code = 0929446842) 2.2 mg/dL 1.7-2.4 Lab Interpretation (test cod e = 55907-7) [facility]* Test Item Value Reference Range Interpretation Comme nts PHOSPHORUS (test code = 3370561166) 3.2 mg/dL 2.5-5.0 Lab Interpretation (test cod e = 46262-5) [facility] (NA, K, CL, CO2, GLUCOSE, BUN, CREATININE, CA)2023 13:01:06* Test Item Value Reference Range Interpretation Comme nts NA (test code = 8638419135) 137 mmol/L 135-145 K (test code = 6333628799) 4.1 mmol/L 3.5-5.0 CL (test code = 1710545191) 110 mmol/L 98-108 H CO2 TOTAL (test code = 7876759321) 20 mmol/L 23-31 L AGAP (test code = 9207362207) 7 2-16 BUN (test code = 4593106559) 23 mg/dL 7-23 GLUCOSE (test code = 4719200573) 118 mg/dL 70-110 H CREATININE (test code = 8875257509) 0.89 mg/dL 0.50-1.04 CALCIUM (test code = 6621156844) 8.4 mg/dL 8.6-10.6 L eGFR (test code = 9741146556) 60.6 mL/min/1.73m2 ELAINE (test code = ELAINE) Association of Glomerular Filtration Rate (GFR) and Staging of Kidney Disease* + --+ --+ ------+| GFR (mL/min/1.73 m2) ?| With Kidney Damage ?| ?Without Kidney Damage+ --------+ --------+ +| ?>90 ?| ?Stage one ?| ? Normal ?+ ---+ ---+ -------+| ?60-89 ?| ?Stage two ?| ? Decreased GFR ? + --+ --+ ------+| ?30-59 ?| ?Stage three ?| ? Stage three ? + --+ --+ ------+| ?15-29 ?| ?Stage four ? | ? Stage four ?+ ---+ ---+ -------+| ?<15 (or dialysis) ? ?| ?Stage five ? | ? Stage five ?+ ---+ ---+ -------+ *Each stage assumes the associated GFR level has been in effect for at least three months. ?Stages 1 to 5, with or without kidney disease, indicate chronic kidney disease. Notes: Determination of stages one and two (with eGFR >59mL/min/1.73 m2) requires estimation of kidney damage for at least three months as defined by structural or functional abnormalities of the kidney, manifested by either:Pathological abnormalities or Markers of kidney damage (including abnormalities in the composition of the blood or urine or abnormalities in imaging tests). Lab Interpretation (test code = 31007-3) [facility] 11:48:57* Test Item Value Reference Range Interpretation Comme nts PHOSPHORUS (test code = 3526950031) 3.7 mg/dL 2.5-5.0 Lab Interpretation (test cod e = 53509-0) Normal [facility]20[facility] 11:48:57* Test Item Value Reference Range Interpretation Comme nts MAGNESIUM (test code = 6105931892) 2.3 mg/dL 1.7-2.4 Lab Interpretation (test cod e = 19048-8) Normal [facility]OLIC PAN[facility] (NA, K, CL, CO2, GLUCOSE, BUN, CREATININE, CA)2023-05-17 11:48:57* Test Item Value Reference Range Interpretation Comme nts NA (test code = 9787284990) 139 mmol/L 135-145 K (test code = 9217227417) 3.7 mmol/L 3.5-5.0 CL (test code = 3261331312) 107 mmol/L 98-108 CO2 TOTAL (test code = 4019680319) 23 mmol/L 23-31 AGAP (test code = 6302503519) 9 2-16 BUN (test code = 7160881909) 31 mg/dL 7-23 H GLUCOSE (test code = 6465044238) 111 mg/dL 70-110 H CREATININE (test code = 8292123307) 1.31 mg/dL 0.50-1.04 H CALCIUM (test code = 9262907326) 8.2 mg/dL 8.6-10.6 L eGFR (test code = 3012798155) 38.9 mL/min/1.73m2 ELAINE (test code = ELAINE) Association of Glomerular Filtration Rate (GFR) and Staging of Kidney Disease* + --+ --+ ------+| GFR (mL/min/1.73 m2) ?| With Kidney Damage ?| ?Without Kidney Damage+ --------+ --------+ +| ?>90 ?| ?Stage one ?| ? Normal ?+ ---+ ---+ -------+| ?60-89 ?| ?Stage two ?| ? Decreased GFR ? + --+ --+ ------+| ?30-59 ?| ?Stage three ?| ? Stage three ? + --+ --+ ------+| ?15-29 ?| ?Stage four ? | ? Stage four ?+ ---+ ---+ -------+| ?<15 (or dialysis) ? ?| ?Stage five ? | ? Stage five ?+ ---+ ---+ -------+ *Each stage assumes the associated GFR level has been in effect for at least three months. ?Stages 1 to 5, with or without kidney disease, indicate chronic kidney disease. Notes: Determination of stages one and two (with eGFR >59mL/min/1.73 m2) requires estimation of kidney damage for at least three months as defined by structural or functional abnormalities of the kidney, manifested by either:Pathological abnormalities or Markers of kidney damage (including abnormalities in the composition of the blood or urine or abnormalities in imaging tests). Lab Interpretation (test code = 37570-5) Abnormal [facility] WITH [id number] 11:39:54* Test Item Value Reference Range Interpretation Comme nts WBC (test code = 6690-2) 12.12 See_Comment H [Automated Log[employer]In] The system which generated this result transmitted reference range: 4.30 - 11.10 10*3/?L. The reference range was not used to interpret this result as normal/abnormal. RBC (test code = 789-8) 2.84 See_Comment L [Automated Log[employer]In] The system which generated this result transmitted reference range: 3.93 - 5.25 10*6/?L. The reference range was not used to interpret this result as normal/abnormal. HGB (test code = 718-7) 9.0 g/dL 11.6-15.0 L HCT (test code = 4544-3) 27.3 % 35.7-45.2 L MCV (test code = 787-2) 96.1 fL 80.6-95.5 H MCH (test code = 785-6) 31.7 pg 25.9-32.8 MCHC (test code = 786-4) 33.0 g/dL 31.6-35.1 RDW-SD (test code = 89180-1) 46.8 fL 39.0-49.9 RDW-CV (test code = 788-0) 13.2 % 12.0-15.5 PLT (test code = 777-3) 290 See_Comment [Automated messa ge] The system which generated this result transmitted reference range: 166 - 358 10*3/?L. The reference range was not used to interpret this result as normal/abnormal. MPV (test code = 50157-1) 9.2 fL 9.5-12.9 L NRBC/100 WBC (test code = 1053395976) 0.0 See_Comment [Automated [employer] ssage] The system which generated this result transmitted reference range: 0.0 - 10.0 /100 WBCs. The reference range was not used to interpret this result as normal/abnormal. NRBC x10^3 (test code = 4509856655) See_Comment [Automated Plaira ge] The system which generated this result transmitted reference range: 10*3/?L. The reference range was not used to interpret this result as normal/abnormal. GRAN MAT (NEUT) % (test code = 770-8) 74.1 % IMM GRAN % (test code = 4422472332) 0.60 % LYMPH % (test code = 736-9) 17.4 % MONO % (test code = 5905-5) 6.5 % EOS % (test code = 713-8) 1.1 % BASO % (test code = 706-2) 0.3 % GRAN MAT x10^3(ANC) (test code = 0015954525) 8.98 10*3/uL 1.88-7.09 H IMM GRAN x10^3 (test code = 3000523475) 0.07 10*3/uL 0.00-0.06 H LYMPH x10^3 (test code = 731-0) 2.11 10*3/uL 1.32-3.29 MONO x10^3 (test code = 742-7) 0.79 10*3/uL 0.33-0.92 EOS x10^3 (test code = 711-2) 0.13 10*3/uL 0.03-0.39 BASO x10^3 (test code = 704-7) 0.04 10*3/uL 0.01-0.07 Lab Interpretation (test code = 07556-1) Abnormal [facility] CenterGLYCOSYLATED HEMOGLOBIN (A1C)2023-05-16 23:43:01* Test Item Value Reference Range Interpretation Comme nts HGB A1C (test code = 4548-4) 5.4 % 4.0-5.7 ELAINE (test code = ELAINE) Reference RangesNormal: <5.7%Prediabetes: 5.7 - 6.4%Diabetes: > 6.5% Lab Interpretation (test code = 76151-7) Normal [facility] CenterABORH Confirmation (Lab Only)2023-05-16 14:07:00* Test Item Value Reference Range Interpretation Comme nts ABO & RH (test code = 20) O Positive [facility] (NA, K, CL, CO2, GLUCOSE, BUN, CREATININE, CA)2023-05-16 09:43:48* Test Item Value Reference Range Interpretation Comme nts NA (test code = 6290036436) 139 mmol/L 135-145 K (test code = 6173603561) 3.9 mmol/L 3.5-5.0 CL (test code = 5278845665) 105 mmol/L 98-108 CO2 TOTAL (test code = 3207900771) 23 mmol/L 23-31 AGAP (test code = 3797631235) 11 2-16 BUN (test code = 7068371655) 26 mg/dL 7-23 H GLUCOSE (test code = 1896995432) 205 mg/dL 70-110 H CREATININE (test code = 2987920929) 1.69 mg/dL 0.50-1.04 H CALCIUM (test code = 2348082963) 8.6 mg/dL 8.6-10.6 eGFR (test code = 8757680490) 29.0 mL/min/1.73m2 ELAINE (test code = ELAINE) Association of Glomerular Filtration Rate (GFR) and Staging of Kidney Disease* + --+ --+ ------+| GFR (mL/min/1.73 m2) ?| With Kidney Damage ?| ?Without Kidney Damage+ --------+ --------+ +| ?>90 ?| ?Stage one ?| ? Normal ?+ ---+ ---+ -------+| ?60-89 ?| ?Stage two ?| ? Decreased GFR ? + --+ --+ ------+| ?30-59 ?| ?Stage three ?| ? Stage three ? + --+ --+ ------+| ?15-29 ?| ?Stage four ? | ? Stage four ?+ ---+ ---+ -------+| ?<15 (or dialysis) ? ?| ?Stage five ? | ? Stage five ?+ ---+ ---+ -------+ *Each stage assumes the associated GFR level has been in effect for at least three months. ?Stages 1 to 5, with or without kidney disease, indicate chronic kidney disease. Notes: Determination of stages one and two (with eGFR >59mL/min/1.73 m2) requires estimation of kidney damage for at least three months as defined by structural or functional abnormalities of the kidney, manifested by either:Pathological abnormalities or Markers of kidney damage (including abnormalities in the composition of the blood or urine or abnormalities in imaging tests). Lab Interpretation (test code = 04243-9) Abnormal [facility]MAG[facility]20[facility]-17 09:43:48* Test Item Value Reference Range Interpretation Comme nts MAGNESIUM (test code = 7391308980) 1.7 mg/dL 1.7-2.4 Lab Interpretation (test cod e = 94329-6) Normal [facility] CenterPhosphorus [id number] 09:43:48* Test Item Value Reference Range Interpretation Comme nts PHOSPHORUS (test code = 4104886132) 3.9 mg/dL 2.5-5.0 Lab Interpretation (test cod e = 12878-8) Normal [facility] WITH [id number] 09:41:15* Test Item Value Reference Range Interpretation Comme nts WBC (test code = 6690-2) 18.67 See_Comment H [Automated message] The system which generated this result transmitted reference range: 4.30 - 11.10 10*3/?L. The reference range was not used to interpret this result as normal/abnormal. RBC (test code = 789-8) 3.09 See_Comment L [Automated message] The system which generated this result transmitted reference range: 3.93 - 5.25 10*6/?L. The reference range was not used to interpret this result as normal/abnormal. HGB (test code = 718-7) 10.1 g/dL 11.6-15.0 L HCT (test code = 4544-3) 30.5 % 35.7-45.2 L MCV (test code = 787-2) 98.7 fL 80.6-95.5 H MCH (test code = 785-6) 32.7 pg 25.9-32.8 MCHC (test code = 786-4) 33.1 g/dL 31.6-35.1 RDW-SD (test code = 95930-3) 46.5 fL 39.0-49.9 RDW-CV (test code = 788-0) 13.2 % 12.0-15.5 PLT (test code = 777-3) 337 See_Comment [Automated message] The system which generated this result transmitted reference range: 166 - 358 10*3/?L. The reference range was not used to interpret this result as normal/abnormal. MPV (test code = 65953-9) 9.2 fL 9.5-12.9 L NRBC/100 WBC (test code = 9899174829) 0.0 See_Comment [Automated message] The system which generated this result transmitted reference range: 0.0 - 10.0 /100 WBCs. The reference range was not used to interpret this result as normal/abnormal. NRBC x10^3 (test code = 6549489532) See_Comment [Automated message] The system which generated this result transmitted reference range: 10*3/?L. The reference range was not used to interpret this result as normal/abnormal. GRAN MAT (NEUT) % (test code = 770-8) 92.7 % IMM GRAN % (test code = 3982331115) 0.60 % LYMPH % (test code = 736-9) 2.2 % MONO % (test code = 5905-5) 4.3 % EOS % (test code = 713-8) 0.0 % BASO % (test code = 706-2) 0.2 % GRAN MAT x10^3(ANC) (test code = 4753989967) 17.30 10*3/uL 1.88-7.09 H IMM GRAN x10^3 (test code = 0317760580) 0.12 10*3/uL 0.00-0.06 H LYMPH x10^3 (test code = 731-0) 0.41 10*3/uL 1.32-3.29 L MONO x10^3 (test code = 742-7) 0.81 10*3/uL 0.33-0.92 EOS x10^3 (test code = 711-2) 0.03-0.39 L BASO x10^3 (test code = 704-7) 0.03 10*3/uL 0.01-0.07 BANDS (test code = 1338561859) Increased A Lab Interpretation (test code = 83126-0) Abnormal [facility] CenterProthrombin Time / [id number] 09:22:06* Test Item Value Reference Range Interpretation Comme [facility] PROTIME PATIENT (test code = 5964-2) 12.4 See_Comment [Automated Plaira ge] The system which generated this result transmitted reference range: 10.1 - 12.6 Seconds. The reference range was not used to interpret this result as normal/abnormal. INR (test code = 6301-6) 1.1 Normal INR <1.1; Warfarin Therapeutic range 2.0 to 3.0 or 2.5 to 3.5, depending upon the indications. Lab Interpretation (test code = 75631-6) Normal [facility] CenteraPTT2023-08-17 09:22:06* Test Item Value Reference Range Interpretation Comme [facility] APTT Patient (test code = 3173-2) 26 See_Comment [Automated messa ge] The system which generated this result transmitted reference range: 26 - 36 Seconds. The reference range was not used to interpret this result as normal/abnormal. Lab Interpretation (test code = 75073-1) Normal [facility] CenterFIBRINOGEN2023-08-17 09:22:06* Test Item Value Reference Range Interpretation Comme nts Fibrinogen (test code = 8127238787) 287 mg/dL 167-453 Lab Interpretation (test cod e = 94565-8) Normal [facility] CenterLactic Acid Whole Lcice0675-31-97 09:12:56* Test Item Value Reference Range Interpretation Comme nts LACTIC ACID (test code = 9768240495) 1.78 mmol/L 0.50-2.20 QUES Lab Interpretation (test cod e = 57486-6) Normal [facility] CenterType and Screen - STAT Mlhmnlm6235-96-47 09:09:00* Test Item Value Reference Range Interpretation Comme nts ABO & RH (test code = 20) O POSITIVE IAT (test code = 1185) Negative [facility] CenterTHYROID STIMULATING WYZBSCH8528-34-39 03:10:12 * Test Item Value Reference Range Interpretation Comme nts TSH (test code = 2383107498) 0.95 See_Comment [Automated LogMeIn] The system which generated this result transmitted reference range: 0.45 - 4.70 mIU/L. The reference range was not used to interpret this result as normal/abnormal. Lab Interpretation (test code = 77490-3) Normal [facility] CenterTROPONIN [id number] 02:51:35* Test Item Value Reference Range Interpretation Comme nts TROPONIN I (test code = 1695707286) 0.032 ng/mL <=0.034 ELAINE (test code = ELAINE) Reference (Normal) Range (defined by the 99th percentile reference limit): <= 0.034 ng/mL Note: Cardiac troponin begins to rise 3-4 hours after the onset of ischemia. Repeat in 4-6 hours if the sample was drawn within 3-4 hours of the onset of the symptom and found normal. Diagnosis of myocardial injury is made with acute changes in cTn concentrations with at least one serial sample above the 99th percentile upper reference limit (URL), taken together with the patient's clinical presentation. Biotin has been reported to cause a negative bias, interpret results relative to patient's use of biotin. Lab Interpretation (test code = 26451-4) Normal [facility] CenterN-TERMINAL GQY-RMT5619-89-17 02:48:53* Test Item Value Reference Range Interpretation Comme nts NT-proBNP (test code = 86532-3) 3860 pg/mL <=125 H ELAINE (test code = ELAINE) Positive: Heart Failure Likely Lab Interpretation (test code = 40091-2) Abnormal [facility] CenterCOMP. METABOLIC PANEL (74376)2023-05-16 02:42:11* Test Item Value Reference Range Interpretation Comme nts NA (test code = 4341127505) 138 mmol/L 135-145 K (test code = 5072341526) 4.1 mmol/L 3.5-5.0 CL (test code = 6869561298) 102 mmol/L 98-108 CO2 TOTAL (test code = 1938196388) 23 mmol/L 23-31 AGAP (test code = 1416373058) 13 2-16 BUN (test code = 3574590385) 21 mg/dL 7-23 GLUCOSE (test code = 8796612179) 175 mg/dL 70-110 H CREATININE (test code = 3065040851) 1.57 mg/dL 0.50-1.04 H TOTAL BILI (test code = 6851071912) 0.6 mg/dL 0.1-1.1 CALCIUM (test code = 5907298653) 9.3 mg/dL 8.6-10.6 T PROTEIN (test code = 1544282413) 7.2 g/dL 6.3-8.2 ALBUMIN (test code = 7112501825) 4.2 g/dL 3.5-5.0 ALK PHOS (test code = 2974289506) 129 U/L 34-122 H ALTv (test code = 1742-6) 28 U/L 5-35 AST(SGOT) (test code = 7908670218) 35 U/L 13-40 eGFR (test code = 9846296286) 31.5 mL/min/1.73m2 ELAINE (test code = ELAINE) Association of Glomerular Filtration Rate (GFR) and Staging of Kidney Disease* + --+ --+ ------+| GFR (mL/min/1.73 m2) ?| With Kidney Damage ?| ?Without Kidney Damage+ --------+ --------+ +| ?>90 ?| ?Stage one ?| ? Normal ?+ ---+ ---+ -------+| ?60-89 ?| ?Stage two ?| ? Decreased GFR ? + --+ --+ ------+| ?30-59 ?| ?Stage three ?| ? Stage three ? + --+ --+ ------+| ?15-29 ?| ?Stage four ? | ? Stage four ?+ ---+ ---+ -------+| ?<15 (or dialysis) ? ?| ?Stage five ? | ? Stage five ?+ ---+ ---+ -------+ *Each stage assumes the associated GFR level has been in effect for at least three months. ?Stages 1 to 5, with or without kidney disease, indicate chronic kidney disease. Notes: Determination of stages one and two (with eGFR >59mL/min/1.73 m2) requires estimation of kidney damage for at least three months as defined by structural or functional abnormalities of the kidney, manifested by either:Pathological abnormalities or Markers of kidney damage (including abnormalities in the composition of the blood or urine or abnormalities in imaging tests). Lab Interpretation (test code = 46423-4) Abnormal [facility] CenterLIPASE2023-08-17 02:41:50* Test Item Value Reference Range Interpretation Comme nts LIPASE (test code = 4406628738) 111 U/L 0-220 Lab Interpretation (test cod e = 34990-7) Normal [facility] CenterCBC WITH [id number] 02:41:09* Test Item Value Reference Range Interpretation Comme nts WBC (test code = 6690-2) 10.76 See_Comment [Automated messa [employer]] The system which generated this result transmitted reference range: 4.30 - 11.10 10*3/?L. The reference range was not used to interpret this result as normal/abnormal. RBC (test code = 789-8) 3.69 See_Comment L [Automated messa ge] The system which generated this result transmitted reference range: 3.93 - 5.25 10*6/?L. The reference range was not used to interpret this result as normal/abnormal. HGB (test code = 718-7) 12.3 g/dL 11.6-15.0 HCT (test code = 4544-3) 36.5 % 35.7-45.2 MCV (test code = 787-2) 98.9 fL 80.6-95.5 H MCH (test code = 785-6) 33.3 pg 25.9-32.8 H MCHC (test code = 786-4) 33.7 g/dL 31.6-35.1 RDW-SD (test code = 11530-6) 46.7 fL 39.0-49.9 RDW-CV (test code = 788-0) 12.9 % 12.0-15.5 PLT (test code = 777-3) 424 See_Comment H [Automated messa ge] The system which generated this result transmitted reference range: 166 - 358 10*3/?L. The reference range was not used to interpret this result as normal/abnormal. MPV (test code = 71753-3) 9.4 fL 9.5-12.9 L NRBC/100 WBC (test code = 6175792094) 0.0 See_Comment [Automated me ssage] The system which generated this result transmitted reference range: 0.0 - 10.0 /100 WBCs. The reference range was not used to interpret this result as normal/abnormal. NRBC x10^3 (test code = 1099649555) See_Comment [Automated messa ge] The system which generated this result transmitted reference range: 10*3/?L. The reference range was not used to interpret this result as normal/abnormal. GRAN MAT (NEUT) % (test code = 770-8) 62.2 % IMM GRAN % (test code = 4335582762) 0.40 % LYMPH % (test code = 736-9) 27.6 % MONO % (test code = 5905-5) 6.4 % EOS % (test code = 713-8) 2.7 % BASO % (test code = 706-2) 0.7 % GRAN MAT x10^3(ANC) (test code = 2185194981) 6.70 10*3/uL 1.88-7.09 IMM GRAN x10^3 (test code = 3645960060) 0.04 10*3/uL 0.00-0.06 LYMPH x10^3 (test code = 731-0) 2.97 10*3/uL 1.32-3.29 MONO x10^3 (test code = 742-7) 0.69 10*3/uL 0.33-0.92 EOS x10^3 (test code = 711-2) 0.29 10*3/uL 0.03-0.39 BASO x10^3 (test code = 704-7) 0.07 10*3/uL 0.01-0.07 Lab Interpretation (test code = 23463-9) Abnormal [facility] CenterTroponin I High Arfbkcdwlnu3426-88-05 17:01:00 * Test Item Value Reference Range Interpretation Comme nts Troponin I High Sensitivity (test code = TROPHS) 79 ng/L 0-45 HH Critical value c alled to jose l back by [BRIAN Patel] on: 05/14/23 at 1747by RAS08. B-Type Natriuretic Qakxbkh4894-07-58 15:10:00* Test Item Value Reference Range Interpretation Comme nts B-Type Natriuretic Peptide ( test code = BNP) 174.1 pg/mL 0.0-99.9 H Complete Blood Count Auto [id number] 15:10:00* Test Item Value Reference Range Interpretation Comme nts White Blood Count (test code = WBCT) 9.0 x10 3/uL 4.4-10.5 N Red Blood Count (test code = RBC) 3.67 x10 6/uL 3.75-5.20 L Hemoglobin (test code = HGBT) 11.8 g/dL 12.2-14.8 L Hematocrit (test code = HCTT) 35.7 % 36.5-44.4 L Mean Corpuscular Volume (lawrence t code = MCV) 97.30 fL 80.00-100.00 N Mean Corpuscular Hemoglobin (test code = MCH) 32.2 pg 27.0-32.5 N Mean Corpuscular HGB Conc (t est code = MCHC) 33.10 g/dL 32.00-37.50 N RDW Coefficient of Variation (test code = RDWCV) 12.7 % 11.5-14.5 N Platelet Count (test code = PLTT) 383 x10 3/uL 140.0-440.0 N Mean Platelet Volume (test c ode = MPV) 9.2 fL Immature Granulocytes % (Aut o) (test code = IMMGRAN%) 0.2 % 0.0-5.0 N Neutrophils % (Auto) (test c ode = NE%) 70.1 % 36.0-70.0 H Lymphocytes % (Auto) (test c ode = LY%) 20.8 % 12.0-44.0 N Monocytes % (Auto) (test cod e = MO%) 6.7 % 0.0-11.0 N Eosinophils % (Auto) (test c ode = EO%) 1.4 % 0.0-7.0 N Basophils % (Auto) (test cod e = BA%) 0.8 % 0.0-2.0 N Immature Granulocytes # (Aut o) (test code = IMMGRAN#) 0.02 x10 3/uL Neutrophils # (Auto) (test c ode = NE#) 6.3 x10 3/uL 1.6-7.4 N Lymphocytes # (Auto) (test c ode = LY#) 1.88 x10 3/uL 0.50-4.60 N Monocytes # (Auto) (test cod e = MO#) 0.60 x10 3/uL 0.00-1.20 N Eosinophils # (Auto) (test c ode = EO#) 0.13 x10 3/uL 0.00-0.74 N Basophils # (Auto) (test cod e = BA#) 0.07 x10 3/uL 0.00-0.21 N nRBC Abs (test code = NRBCA) 0 nRBC Pct (test code = NRBCP) 0 % Prothrombin Time [id number] 15:10:00* Test Item Value Reference Range Interpretation Comme nts Prothrombin Time (test code = PT) 10.3 Seconds 9.3-12.1 N INR (test code = INR) 1.0 ratio 0.9-1.2 N Reference Interv al is for non-anticoagulated patients.Suggested INR Therapeutic Range for Vitamin K antogonisttherapy:LEV ELS OFTHERAPY INDICATIONS TARGET INR RANGEStandard Dose Venous Thrombosis, 2.0 - 3.0 Atrial Fibrillation, Pulmonary Embolism.High Dose Valvular Heart Disease, 2.5 - 3.5 Mechanical Heart, Intracardiac Thrombosis. Partial Thromboplastin Zlbi6483-66-37 15:10:00* Test Item Value Reference Range Interpretation Comme nts Partial Thromboplastin Time (test code = PTT) 23.4 Seconds 23.9-32.8 L Comprehensive Metabolic Diiyl3107-10-43 15:10:00* Test Item Value Reference Range Interpretation Comme nts SODIUM (test code = NA) 136.0 mmol/L 136.0-145.0 N Potassium,K (test code = K) 4.3 mmol/L 3.0-5.1 N Chloride (test code = CL) 104 mmol/L 98-107 N Carbon Dioxide (test code = CO2) 20 mmol/L 20-31 N Anion Gap (test code = GAP) 12 mmol/L 5-15 N Blood Urea Nitrogen (test code = BUN) 15 mg/dL 9-23 N Creatinine (test code = CREATT) 0.94 mg/dL 0.55-1.02 N Creatinine Clr Calc Pharmacy (test code = CRCLPHA) 44.02 mL/min Estimated Glomerular Filt Rate (test code = EGFR.XX) 61 See_Comment L Reported eGFR is based on the CKD-EPI 2020 equation thatdoes not use a race coefficient. Additional information canbe found at:[email or web address]_[email or web address] 5.pdf ([email or web address]) [Automated message] The system which generated this result transmitted reference range: >=90 ml/min/1.73m2. The reference range was not used to interpret this result as normal/abnormal. BUN/Creatinine Ratio (test code = BCRATIO) 16 ratio 10-20 N Glucose (test code = GLU) 117 mg/dL 74-106 H Osmolality,Calculated (test code = OSMOC) 283.3 Bilirubin,Total (test code = BILIT) 0.6 mg/dL 0.2-1.1 N Aspartate Amino Transferase (test code = AST) 29 U/L 0-34 N Alanine Aminotransferase (test code = ALT) 26 U/L 10-49 N Total Protein (test code = TP) 6.5 g/dL 5.7-8.2 N Albumin Level (test code = ALB) 4.2 g/dL 3.2-4.8 N Globulin (test code = GLOB) 2.3 mg/dL 2.3-3.5 N Albumin/Globulin Ratio (test code = AGRATIO) 1.8 ratio 0.8-2.0 N Alkaline Phosphatase (test code = ALP) 95 U/L 46-116 N Calcium (test code = CA) 8.0 mg/dL 8.3-10.6 L Ethanol Prhnr3645-44-63 15:10:00* Test Item Value Reference Range Interpretation Comme nts Ethanol (test code = ETOH) < 3 mg/dL The pharmacologi deanna response to blood alcohol levels mayvary from individual to individual. The fatal concentrationhas been reported to be >400mg/dL. Troponin I High Cwndhswtvum8905-38-18 15:10:00* Test Item Value Reference Range Interpretation Comme nts Troponin I High Sensitivity (test code = TROPHS) 57 ng/L 0-45 HH Critical value c alled to [facility] back by jane namrata on: 05/14/23 at 1623by [id number]. UA, Urinalysis Rflx Cult/[id number] 14:50:00* Test Item Value Reference Range Interpretation Comme nts Color,Urine (test code = UCOL) Yellow Yellow Clarity,Urine (test code = UCLAR) Clear Clear Ph, Urine (test code = UPH) 8.0 5.0-9.0 N Specific [place],Urine (test code = USG) <= 1.005 1.005-1.030 N Blood,Urine (test code = UBLD) Negative mg/dL Negative Protein,Urine (test code = UPRO) Negative mg/dL Negative Glucose,Urine (UA) (test cod e = UGLU) Negative mg/dL Negative Ketones,Urine (test code = UKET) Negative mg/dL Negative Nitrate,Urine (test code = UNIT) Negative Negative Bilirubin,Urine (test code = UBIL) Negative mg/dL Negative Urobilinogen,Urine (test cod e = UURO) 1.0 E.U./dL Normal Leukocyte Esterase,Urine (te st code = ULEU) Negative mg/dL Negative Drug Screen,[id number] 14:50:00* Test Item Value Reference Range Interpretation Comme nts PCP Phencyclidine Screen,Uri ne (test code = PCPU) Negative Negative Amphetamine Screen,Urine (te st code = AMPU) Negative Negative Methadone Screen,Urine (test code = METHU) Negative Negative Opiate Screen,Urine (test co de = UOPIS) Negative Negative Barbituates Screen,Urine (te st code = BARBU) Negative Negative Benzodiazepines Screen,Urine (test code = UBENZS) Negative Negative Cocaine Screen,Urine (test c ode = UCOCS) Negative Negative Cannabinoid Screen,Urine (te st code = UTHCS) Positive Negative A Propoxyphene Screen, Urine ( test code = UPROP) Negative Negative BASIC METABOLIC PANEL (NA, K, CL, CO2, GLUCOSE, BUN, CREATININE, CA)2023-04-11 11:32:04* Test Item Value Reference Range Interpretation Comme nts NA (test code = 2798535060) 142 mmol/L 135-145 K (test code = 2899701403) 3.8 mmol/L 3.5-5.0 CL (test code = 4541838145) 108 mmol/L 98-108 CO2 TOTAL (test code = 4404813503) 21 mmol/L 23-31 L AGAP (test code = 0635162779) 13 2-16 BUN (test code = 6728520270) 25 mg/dL 7-23 H GLUCOSE (test code = 6865647422) 124 mg/dL 70-110 H CREATININE (test code = 6007207074) 0.84 mg/dL 0.50-1.04 CALCIUM (test code = 7069582449) 8.9 mg/dL 8.6-10.6 eGFR (test code = 3380016682) 64.9 mL/min/1.73m2 ELAINE (test code = ELAINE) Association of Glomerular Filtration Rate (GFR) and Staging of Kidney Disease* + --+ --+ ------+| GFR (mL/min/1.73 m2) ?| With Kidney Damage ?| ?Without Kidney Damage+ --------+ --------+ +| ?>90 ?| ?Stage one ?| ? Normal ?+ ---+ ---+ -------+| ?60-89 ?| ?Stage two ?| ? Decreased GFR ? + --+ --+ ------+| ?30-59 ?| ?Stage three ?| ? Stage three ? + --+ --+ ------+| ?15-29 ?| ?Stage four ? | ? Stage four ?+ ---+ ---+ -------+| ?<15 (or dialysis) ? ?| ?Stage five ? | ? Stage five ?+ ---+ ---+ -------+ *Each stage assumes the associated GFR level has been in effect for at least three months. ?Stages 1 to 5, with or without kidney disease, indicate chronic kidney disease. Notes: Determination of stages one and two (with eGFR >59mL/min/1.73 m2) requires estimation of kidney damage for at least three months as defined by structural or functional abnormalities of the kidney, manifested by either:Pathological abnormalities or Markers of kidney damage (including abnormalities in the composition of the blood or urine or abnormalities in imaging tests). Lab Interpretation (test code = 79138-0) [facility]* Test Item Value Reference Range Interpretation Comme nts MAGNESIUM (test code = 2270653235) 1.8 mg/dL 1.7-2.4 Lab Interpretation (test cod e = 69614-0) [facility] (NA, K, CL, CO2, GLUCOSE, BUN, CREATININE, CA)2023-04-11 11:32:04* Test Item Value Reference Range Interpretation Comme nts NA (test code = 9752546618) 142 mmol/L 135-145 K (test code = 8421934450) 3.8 mmol/L 3.5-5.0 CL (test code = 0477749164) 108 mmol/L 98-108 CO2 TOTAL (test code = 3143260771) 21 mmol/L 23-31 L AGAP (test code = 3989595052) 13 2-16 BUN (test code = 1323387596) 25 mg/dL 7-23 H GLUCOSE (test code = 9659358302) 124 mg/dL 70-110 H CREATININE (test code = 1047003945) 0.84 mg/dL 0.50-1.04 CALCIUM (test code = 2095244521) 8.9 mg/dL 8.6-10.6 eGFR (test code = 8245517368) 64.9 mL/min/1.73m2 ELAINE (test code = ELAINE) Association of Glomerular Filtration Rate (GFR) and Staging of Kidney Disease* + --+ --+ ------+| GFR (mL/min/1.73 m2) ?| With Kidney Damage ?| ?Without Kidney Damage+ --------+ --------+ +| ?>90 ?| ?Stage one ?| ? Normal ?+ ---+ ---+ -------+| ?60-89 ?| ?Stage two ?| ? Decreased GFR ? + --+ --+ ------+| ?30-59 ?| ?Stage three ?| ? Stage three ? + --+ --+ ------+| ?15-29 ?| ?Stage four ? | ? Stage four ?+ ---+ ---+ -------+| ?<15 (or dialysis) ? ?| ?Stage five ? | ? Stage five ?+ ---+ ---+ -------+ *Each stage assumes the associated GFR level has been in effect for at least three months. ?Stages 1 to 5, with or without kidney disease, indicate chronic kidney disease. Notes: Determination of stages one and two (with eGFR >59mL/min/1.73 m2) requires estimation of kidney damage for at least three months as defined by structural or functional abnormalities of the kidney, manifested by either:Pathological abnormalities or Markers of kidney damage (including abnormalities in the composition of the blood or urine or abnormalities in imaging tests). Lab Interpretation (test code = 52885-2) [facility] 11:32:04* Test Item Value Reference Range Interpretation Comme nts MAGNESIUM (test code = 1638873758) 1.8 mg/dL 1.7-2.4 Lab Interpretation (test cod e = 33065-2) Normal [facility] WITH [id number] 10:46:17* Test Item Value Reference Range Interpretation Comme nts WBC (test code = 6690-2) 12.13 See_Comment H [Automated [employer]] The system which generated this result transmitted reference range: 4.30 - 11.10 10*3/?L. The reference range was not used to interpret this result as normal/abnormal. RBC (test code = 789-8) 3.32 See_Comment L [Automated [employer]] The system which generated this result transmitted reference range: 3.93 - 5.25 10*6/?L. The reference range was not used to interpret this result as normal/abnormal. HGB (test code = 718-7) 10.7 g/dL 11.6-15.0 L HCT (test code = 4544-3) 31.7 % 35.7-45.2 L MCV (test code = 787-2) 95.5 fL 80.6-95.5 MCH (test code = 785-6) 32.2 pg 25.9-32.8 MCHC (test code = 786-4) 33.8 g/dL 31.6-35.1 RDW-SD (test code = 14666-7) 44.2 fL 39.0-49.9 RDW-CV (test code = 788-0) 12.9 % 12.0-15.5 PLT (test code = 777-3) 268 See_Comment [Automated messa ge] The system which generated this result transmitted reference range: 166 - 358 10*3/?L. The reference range was not used to interpret this result as normal/abnormal. MPV (test code = 79166-2) 9.7 fL 9.5-12.9 NRBC/100 WBC (test code = 1762602498) 0.0 See_Comment [Automated [employer] ssage] The system which generated this result transmitted reference range: 0.0 - 10.0 /100 WBCs. The reference range was not used to interpret this result as normal/abnormal. NRBC x10^3 (test code = 0166017470) See_Comment [Automated messa ge] The system which generated this result transmitted reference range: 10*3/?L. The reference range was not used to interpret this result as normal/abnormal. GRAN MAT (NEUT) % (test code = 770-8) 77.5 % IMM GRAN % (test code = 7164325429) 0.30 % LYMPH % (test code = 736-9) 13.4 % MONO % (test code = 5905-5) 7.9 % EOS % (test code = 713-8) 0.5 % BASO % (test code = 706-2) 0.4 % GRAN MAT x10^3(ANC) (test code = 5516276291) 9.39 10*3/uL 1.88-7.09 H IMM GRAN x10^3 (test code = 4465071894) 0.04 10*3/uL 0.00-0.06 LYMPH x10^3 (test code = 731-0) 1.63 10*3/uL 1.32-3.29 MONO x10^3 (test code = 742-7) 0.96 10*3/uL 0.33-0.92 H EOS x10^3 (test code = 711-2) 0.06 10*3/uL 0.03-0.39 BASO x10^3 (test code = 704-7) 0.05 10*3/uL 0.01-0.07 Lab Interpretation (test code = 04328-4) Abnormal [facility] WITH [id number] 10:46:17* Test Item Value Reference Range Interpretation Comme nts WBC (test code = 6690-2) 12.13 See_Comment H [Automated messa ge] The system which generated this result transmitted reference range: 4.30 - 11.10 10*3/?L. The reference range was not used to interpret this result as normal/abnormal. RBC (test code = 789-8) 3.32 See_Comment L [Automated messa ge] The system which generated this result transmitted reference range: 3.93 - 5.25 10*6/?L. The reference range was not used to interpret this result as normal/abnormal. HGB (test code = 718-7) 10.7 g/dL 11.6-15.0 L HCT (test code = 4544-3) 31.7 % 35.7-45.2 L MCV (test code = 787-2) 95.5 fL 80.6-95.5 MCH (test code = 785-6) 32.2 pg 25.9-32.8 MCHC (test code = 786-4) 33.8 g/dL 31.6-35.1 RDW-SD (test code = 84889-3) 44.2 fL 39.0-49.9 RDW-CV (test code = 788-0) 12.9 % 12.0-15.5 PLT (test code = 777-3) 268 See_Comment [Automated messa ge] The system which generated this result transmitted reference range: 166 - 358 10*3/?L. The reference range was not used to interpret this result as normal/abnormal. MPV (test code = 80971-2) 9.7 fL 9.5-12.9 NRBC/100 WBC (test code = 7445997975) 0.0 See_Comment [Automated me ssage] The system which generated this result transmitted reference range: 0.0 - 10.0 /100 WBCs. The reference range was not used to interpret this result as normal/abnormal. NRBC x10^3 (test code = 0143029002) See_Comment [Automated messa ge] The system which generated this result transmitted reference range: 10*3/?L. The reference range was not used to interpret this result as normal/abnormal. GRAN MAT (NEUT) % (test code = 770-8) 77.5 % IMM GRAN % (test code = 0905200435) 0.30 % LYMPH % (test code = 736-9) 13.4 % MONO % (test code = 5905-5) 7.9 % EOS % (test code = 713-8) 0.5 % BASO % (test code = 706-2) 0.4 % GRAN MAT x10^3(ANC) (test code = 9257184764) 9.39 10*3/uL 1.88-7.09 H IMM GRAN x10^3 (test code = 9573597148) 0.04 10*3/uL 0.00-0.06 LYMPH x10^3 (test code = 731-0) 1.63 10*3/uL 1.32-3.29 MONO x10^3 (test code = 742-7) 0.96 10*3/uL 0.33-0.92 H EOS x10^3 (test code = 711-2) 0.06 10*3/uL 0.03-0.39 BASO x10^3 (test code = 704-7) 0.05 10*3/uL 0.01-0.07 Lab Interpretation (test code = 14530-4) Abnormal [facility] ACT LOW [id number] 17:59:41* Test Item Value Reference Range Interpretation Comme nts ACTLR (test code = 6001313158) 330 See_Comment H [Automated messa ge] The system which generated this result transmitted reference range: 89 - 169 Seconds. The reference range was not used to interpret this result as normal/abnormal. Lab Interpretation (test code = 63308-4) Abnormal [facility] ACT LOW [id number] 17:59:41* Test Item Value Reference Range Interpretation Comme nts ACTLR (test code = 9502189976) 330 See_Comment H [Automated messa ge] The system which generated this result transmitted reference range: 89 - 169 Seconds. The reference range was not used to interpret this result as normal/abnormal. Lab Interpretation (test code = 39169-2) Abnormal [facility] ACT LOW [id number] 17:10:29* Test Item Value Reference Range Interpretation Comme nts ACTLR (test code = 2668410247) 357 See_Comment H [Automated messa ge] The system which generated this result transmitted reference range: 89 - 169 Seconds. The reference range was not used to interpret this result as normal/abnormal. Lab Interpretation (test code = 13953-9) Abnormal [facility] ACT LOW [id number] 17:10:29* Test Item Value Reference Range Interpretation Comme nts ACTLR (test code = 0308443634) 357 See_Comment H [Automated messa ge] The system which generated this result transmitted reference range: 89 - 169 Seconds. The reference range was not used to interpret this result as normal/abnormal. Lab Interpretation (test code = 33664-5) Abnormal [facility]2023-07-12 11:35:39* Test Item Value Reference Range Interpretation Comme nts MAGNESIUM (test code = 2351176810) 2.0 mg/dL 1.7-2.4 Lab Interpretation (test cod e = 58584-7) Normal [facility]2023-07-12 11:35:39* Test Item Value Reference Range Interpretation Comme nts MAGNESIUM (test code = 7321987157) 2.0 mg/dL 1.7-2.4 Lab Interpretation (test cod e = 52490-5) Normal [facility] METABOLIC PANEL (NA, K, CL, CO2, GLUCOSE, BUN, CREATININE, CA)2023-04-10 11:35:38* Test Item Value Reference Range Interpretation Comme nts NA (test code = 2323341922) 137 mmol/L 135-145 K (test code = 6919279489) 3.7 mmol/L 3.5-5.0 Slight hemolysis CL (test code = 0742986184) 109 mmol/L 98-108 H CO2 TOTAL (test code = 9896410315) 22 mmol/L 23-31 L AGAP (test code = 0324151167) 6 2-16 BUN (test code = 8757484113) 28 mg/dL 7-23 H Slight hemolysis GLUCOSE (test code = 7313297245) 106 mg/dL 70-110 CREATININE (test code = 9673563669) 0.80 mg/dL 0.50-1.04 CALCIUM (test code = 3053492448) 8.6 mg/dL 8.6-10.6 eGFR (test code = 1732798367) 68.7 mL/min/1.73m2 ELAINE (test code = ELAINE) Association of Glomerular Filtration Rate (GFR) and Staging of Kidney Disease* + -----+ --------+ +| GFR (mL/min/1.73 m2) ?| With Kidney Damage ?| ?Without Kidney Damage+ +------- +---- --+| ?>90 ?| ?Stage one ?| ? Normal ?+ ------+ ---------+--------- +| ?60-89 ?| ?Stage two ?| ? Decreased GFR ? + -----+ --------+ +| ?30-59 ?| ?Stage three ?| ? Stage three ? + -----+ --------+ +| ?15-29 ?| ?Stage four ? | ? Stage four ?+ ------+ ---------+--------- +| ?<15 (or dialysis) ? ?| ?Stage five ? | ? Stage five ?+ ------+ ---------+--------- + *Each stage assumes the associated GFR level has been in effect for at least three months. ?Stages 1 to 5, with or without kidney disease, indicate chronic kidney disease. Notes: Determination of stages one and two (with eGFR >59mL/min/1.73 m2) requires estimation of kidney damage for at least three months as defined by structural or functional abnormalities of the kidney, manifested by either:Pathological abnormalities or Markers of kidney damage (including abnormalities in the composition of the blood or urine or abnormalities in imaging tests). Lab Interpretation (test code = 78509-0) Abnormal [facility] METABOLIC PANEL (NA, K, CL, CO2, GLUCOSE, BUN, CREATININE, CA)2023-04-10 11:35:38* Test Item Value Reference Range Interpretation Comme nts NA (test code = 9654942305) 137 mmol/L 135-145 K (test code = 9919783427) 3.7 mmol/L 3.5-5.0 Slight hemolysis CL (test code = 9297146504) 109 mmol/L 98-108 H CO2 TOTAL (test code = 0047824489) 22 mmol/L 23-31 L AGAP (test code = 4578101887) 6 2-16 BUN (test code = 3844449271) 28 mg/dL 7-23 H Slight hemolysis GLUCOSE (test code = 5591875683) 106 mg/dL 70-110 CREATININE (test code = 8726622471) 0.80 mg/dL 0.50-1.04 CALCIUM (test code = 5641246633) 8.6 mg/dL 8.6-10.6 eGFR (test code = 6299725860) 68.7 mL/min/1.73m2 ELAINE (test code = ELAINE) Association of Glomerular Filtration Rate (GFR) and Staging of Kidney Disease* + -----+ --------+ +| GFR (mL/min/1.73 m2) ?| With Kidney Damage ?| ?Without Kidney Damage+ +------- +---- --+| ?>90 ?| ?Stage one ?| ? Normal ?+ ------+ ---------+--------- +| ?60-89 ?| ?Stage two ?| ? Decreased GFR ? + -----+ --------+ +| ?30-59 ?| ?Stage three ?| ? Stage three ? + -----+ --------+ +| ?15-29 ?| ?Stage four ? | ? Stage four ?+ ------+ ---------+--------- +| ?<15 (or dialysis) ? ?| ?Stage five ? | ? Stage five ?+ ------+ ---------+--------- + *Each stage assumes the associated GFR level has been in effect for at least three months. ?Stages 1 to 5, with or without kidney disease, indicate chronic kidney disease. Notes: Determination of stages one and two (with eGFR >59mL/min/1.73 m2) requires estimation of kidney damage for at least three months as defined by structural or functional abnormalities of the kidney, manifested by either:Pathological abnormalities or Markers of kidney damage (including abnormalities in the composition of the blood or urine or abnormalities in imaging tests). Lab Interpretation (test code = 68958-8) Abnormal [facility] (for use with Heparin Drip)2023-04-10 10:55:06* Test Item Value Reference Range Interpretation Comme [facility] APTT Patient (test code = 3173-2) 86 See_Comment H [Automated messa ge] The system which generated this result transmitted reference range: 26 - 36 Seconds. The reference range was not used to interpret this result as normal/abnormal. Lab Interpretation (test code = 21043-9) Abnormal [facility] (for use with Heparin Drip)2023-04-10 10:55:06* Test Item Value Reference Range Interpretation Comme [facility] APTT Patient (test code = 3173-2) 86 See_Comment H [Automated messa ge] The system which generated this result transmitted reference range: 26 - 36 Seconds. The reference range was not used to interpret this result as normal/abnormal. Lab Interpretation (test code = 66627-6) Abnormal [facility] WITH [id number] 10:50:58* Test Item Value Reference Range Interpretation Comme [facility] WBC (test code = 6690-2) 9.00 See_Comment [Automated messa ge] The system which generated this result transmitted reference range: 4.30 - 11.10 10*3/?L. The reference range was not used to interpret this result as normal/abnormal. RBC (test code = 789-8) 3.47 See_Comment L [Automated messa ge] The system which generated this result transmitted reference range: 3.93 - 5.25 10*6/?L. The reference range was not used to interpret this result as normal/abnormal. HGB (test code = 718-7) 11.5 g/dL 11.6-15.0 L HCT (test code = 4544-3) 33.9 % 35.7-45.2 L MCV (test code = 787-2) 97.7 fL 80.6-95.5 H MCH (test code = 785-6) 33.1 pg 25.9-32.8 H MCHC (test code = 786-4) 33.9 g/dL 31.6-35.1 RDW-SD (test code = 31490-7) 46.1 fL 39.0-49.9 RDW-CV (test code = 788-0) 12.9 % 12.0-15.5 PLT (test code = 777-3) 271 See_Comment [Automated messa ge] The system which generated this result transmitted reference range: 166 - 358 10*3/?L. The reference range was not used to interpret this result as normal/abnormal. MPV (test code = 61765-0) 9.9 fL 9.5-12.9 NRBC/100 WBC (test code = 8576885171) 0.0 See_Comment [Automated [employer]] The system which generated this result transmitted reference range: 0.0 - 10.0 /100 WBCs. The reference range was not used to interpret this result as normal/abnormal. NRBC x10^3 (test code = 5965239921) See_Comment [Automated messa ge] The system which generated this result transmitted reference range: 10*3/?L. The reference range was not used to interpret this result as normal/abnormal. GRAN MAT (NEUT) % (test code = 770-8) 59.1 % IMM GRAN % (test code = 9807994211) 0.20 % LYMPH % (test code = 736-9) 27.3 % MONO % (test code = 5905-5) 8.0 % EOS % (test code = 713-8) 4.7 % BASO % (test code = 706-2) 0.7 % GRAN MAT x10^3(ANC) (test code = 7321612504) 5.32 10*3/uL 1.88-7.09 IMM GRAN x10^3 (test code = 4748522536) 0.00-0.06 LYMPH x10^3 (test code = 731-0) 2.46 10*3/uL 1.32-3.29 MONO x10^3 (test code = 742-7) 0.72 10*3/uL 0.33-0.92 EOS x10^3 (test code = 711-2) 0.42 10*3/uL 0.03-0.39 H BASO x10^3 (test code = 704-7) 0.06 10*3/uL 0.01-0.07 Lab Interpretation (test code = 13183-7) Abnormal [facility] WITH [id number] 10:50:58* Test Item Value Reference Range Interpretation Comme nts WBC (test code = 6690-2) 9.00 See_Comment [Automated messa ge] The system which generated this result transmitted reference range: 4.30 - 11.10 10*3/?L. The reference range was not used to interpret this result as normal/abnormal. RBC (test code = 789-8) 3.47 See_Comment L [Automated messa ge] The system which generated this result transmitted reference range: 3.93 - 5.25 10*6/?L. The reference range was not used to interpret this result as normal/abnormal. HGB (test code = 718-7) 11.5 g/dL 11.6-15.0 L HCT (test code = 4544-3) 33.9 % 35.7-45.2 L MCV (test code = 787-2) 97.7 fL 80.6-95.5 H MCH (test code = 785-6) 33.1 pg 25.9-32.8 H MCHC (test code = 786-4) 33.9 g/dL 31.6-35.1 RDW-SD (test code = 09954-3) 46.1 fL 39.0-49.9 RDW-CV (test code = 788-0) 12.9 % 12.0-15.5 PLT (test code = 777-3) 271 See_Comment [Automated messa ge] The system which generated this result transmitted reference range: 166 - 358 10*3/?L. The reference range was not used to interpret this result as normal/abnormal. MPV (test code = 25000-2) 9.9 fL 9.5-12.9 NRBC/100 WBC (test code = 3995416512) 0.0 See_Comment [Automated me ssage] The system which generated this result transmitted reference range: 0.0 - 10.0 /100 WBCs. The reference range was not used to interpret this result as normal/abnormal. NRBC x10^3 (test code = 3398219274) See_Comment [Automated messa ge] The system which generated this result transmitted reference range: 10*3/?L. The reference range was not used to interpret this result as normal/abnormal. GRAN MAT (NEUT) % (test code = 770-8) 59.1 % IMM GRAN % (test code = 5349700639) 0.20 % LYMPH % (test code = 736-9) 27.3 % MONO % (test code = 5905-5) 8.0 % EOS % (test code = 713-8) 4.7 % BASO % (test code = 706-2) 0.7 % GRAN MAT x10^3(ANC) (test code = 2327283779) 5.32 10*3/uL 1.88-7.09 IMM GRAN x10^3 (test code = 3173016741) 0.00-0.06 LYMPH x10^3 (test code = 731-0) 2.46 10*3/uL 1.32-3.29 MONO x10^3 (test code = 742-7) 0.72 10*3/uL 0.33-0.92 EOS x10^3 (test code = 711-2) 0.42 10*3/uL 0.03-0.39 H BASO x10^3 (test code = 704-7) 0.06 10*3/uL 0.01-0.07 Lab Interpretation (test code = 99651-8) Abnormal [facility] (for use with Heparin Drip)2023-04-10 04:01:47* Test Item Value Reference Range Interpretation Comme nts APTT Patient (test code = 3173-2) 40 See_Comment H [Automated messa ge] The system which generated this result transmitted reference range: 26 - 36 Seconds. The reference range was not used to interpret this result as normal/abnormal. Lab Interpretation (test code = 97262-6) Abnormal [facility] (for use with Heparin Drip)2023-04-10 04:01:47* Test Item Value Reference Range Interpretation Comme nts APTT Patient (test code = 3173-2) 40 See_Comment H [Automated messa ge] The system which generated this result transmitted reference range: 26 - 36 Seconds. The reference range was not used to interpret this result as normal/abnormal. Lab Interpretation (test code = 36978-0) Abnormal [facility] (for use with Heparin Infusion)2023-04-09 21:16:27* Test Item Value Reference Range Interpretation Comme nts APTT Patient (test code = 3173-2) See_Comment HH [Automated messa ge] The system which generated this result transmitted reference range: 26 - 36 Seconds. The reference range was not used to interpret this result as normal/abnormal. Lab Interpretation (test code = 98826-1) Abnormal [facility] (for use with Heparin Infusion)2023-04-09 21:16:27* Test Item Value Reference Range Interpretation Comme nts APTT Patient (test code = 3173-2) See_Comment HH [Automated messa ge] The system which generated this result transmitted reference range: 26 - 36 Seconds. The reference range was not used to interpret this result as normal/abnormal. Lab Interpretation (test code = 54756-0) Abnormal [facility] (for use with Heparin Infusion)2023-04-09 14:41:07* Test Item Value Reference Range Interpretation Comme nts APTT Patient (test code = 3173-2) See_Comment HH [Automated messa ge] The system which generated this result transmitted reference range: 26 - 36 Seconds. The reference range was not used to interpret this result as normal/abnormal. Lab Interpretation (test code = 75666-7) Abnormal [facility] (for use with Heparin Infusion)2023-04-09 14:41:07* Test Item Value Reference Range Interpretation Comme nts APTT Patient (test code = 3173-2) See_Comment HH [Automated messa ge] The system which generated this result transmitted reference range: 26 - 36 Seconds. The reference range was not used to interpret this result as normal/abnormal. Lab Interpretation (test code = 49918-8) Abnormal [facility] (for use with Heparin Infusion)2023-04-09 14:41:07* Test Item Value Reference Range Interpretation Comme nts APTT Patient (test code = 3173-2) See_Comment HH [Automated messa ge] The system which generated this result transmitted reference range: 26 - 36 Seconds. The reference range was not used to interpret this result as normal/abnormal. Lab Interpretation (test code = 49449-2) [facility] Drip)2023-04-09 13:18:56* Test Item Value Reference Range Interpretation Comme nts APTT Patient (test code = 3173-2) 135 See_Comment HH [Automated messa ge] The system which generated this result transmitted reference range: 26 - 36 Seconds. The reference range was not used to interpret this result as normal/abnormal. Lab Interpretation (test code = 39381-5) Abnormal [facility] (for use with Heparin Drip)2023-04-09 13:18:56* Test Item Value Reference Range Interpretation Comme nts APTT Patient (test code = 3173-2) 135 See_Comment HH [Automated messa ge] The system which generated this result transmitted reference range: 26 - 36 Seconds. The reference range was not used to interpret this result as normal/abnormal. Lab Interpretation (test code = 29026-9) Abnormal [facility] (for use with Heparin Drip)2023-04-09 13:18:56* Test Item Value Reference Range Interpretation Comme nts APTT Patient (test code = 3173-2) 135 See_Comment HH [Automated messa ge] The system which generated this result transmitted reference range: 26 - 36 Seconds. The reference range was not used to interpret this result as normal/abnormal. Lab Interpretation (test code = 32198-0) [facility]23-[facility]-07 20:18:00* Test Item Value Reference Range Interpretation Comme nts HGB A1C (test code = 4548-4) 5.4 % 4.0-5.7 ELAINE (test code = ELAINE) Reference RangesNormal: <5.7%Prediabetes: 5.7 - 6.4%Diabetes: > 6.5% Lab Interpretation (test code = 64198-8) Normal [facility]2023-04-07 20:18:00* Test Item Value Reference Range Interpretation Comme nts HGB A1C (test code = 4548-4) 5.4 % 4.0-5.7 ELAINE (test code = ELAINE) Reference RangesNormal: <5.7%Prediabetes: 5.7 - 6.4%Diabetes: > 6.5% Lab Interpretation (test code = 51097-2) Normal [facility]2023-04-07 20:18:00* Test Item Value Reference Range Interpretation Comme nts HGB A1C (test code = 4548-4) 5.4 % 4.0-5.7 ELAINE (test code = ELAINE) Reference RangesNormal: <5.7%Prediabetes: 5.7 - 6.4%Diabetes: > 6.5% Lab Interpretation (test code = 06741-6) Normal [facility] WITH [id number] 15:52:27* Test Item Value Reference Range Interpretation Comme nts WBC (test code = 6690-2) 10.94 See_Comment [Automated [employer]] The system which generated this result transmitted reference range: 4.30 - 11.10 10*3/?L. The reference range was not used to interpret this result as normal/abnormal. RBC (test code = 789-8) 4.04 See_Comment [Automated [employer]] The system which generated this result transmitted reference range: 3.93 - 5.25 10*6/?L. The reference range was not used to interpret this result as normal/abnormal. HGB (test code = 718-7) 13.5 g/dL 11.6-15.0 HCT (test code = 4544-3) 40.0 % 35.7-45.2 MCV (test code = 787-2) 99.0 fL 80.6-95.5 H MCH (test code = 785-6) 33.4 pg 25.9-32.8 H MCHC (test code = 786-4) 33.8 g/dL 31.6-35.1 RDW-SD (test code = 49008-8) 45.9 fL 39.0-49.9 RDW-CV (test code = 788-0) 12.6 % 12.0-15.5 PLT (test code = 777-3) 351 See_Comment [Automated messa ge] The system which generated this result transmitted reference range: 166 - 358 10*3/?L. The reference range was not used to interpret this result as normal/abnormal. MPV (test code = 28154-6) 9.5 fL 9.5-12.9 NRBC/100 WBC (test code = 7470656189) 0.0 See_Comment [Automated [employer] ssage] The system which generated this result transmitted reference range: 0.0 - 10.0 /100 WBCs. The reference range was not used to interpret this result as normal/abnormal. NRBC x10^3 (test code = 8966480714) See_Comment [Automated messa ge] The system which generated this result transmitted reference range: 10*3/?L. The reference range was not used to interpret this result as normal/abnormal. SEG % (test code = 91414-6) 40 % 33-76 LYMPH % (test code = 26050-7) 50 % 14-54 MONO % (test code = 74732-5) 7 % 0-4 H EOS % (test code = 98148-5) 3 % 0-3 ANC (test code = 753-4) 4.38 10*3/uL 1.88-7.09 Lab Interpretation (test code = 05627-3) Abnormal [facility] WITH [id number] 15:52:27* Test Item Value Reference Range Interpretation Comme nts WBC (test code = 6690-2) 10.94 See_Comment [Automated messa ge] The system which generated this result transmitted reference range: 4.30 - 11.10 10*3/?L. The reference range was not used to interpret this result as normal/abnormal. RBC (test code = 789-8) 4.04 See_Comment [Automated messa ge] The system which generated this result transmitted reference range: 3.93 - 5.25 10*6/?L. The reference range was not used to interpret this result as normal/abnormal. HGB (test code = 718-7) 13.5 g/dL 11.6-15.0 HCT (test code = 4544-3) 40.0 % 35.7-45.2 MCV (test code = 787-2) 99.0 fL 80.6-95.5 H MCH (test code = 785-6) 33.4 pg 25.9-32.8 H MCHC (test code = 786-4) 33.8 g/dL 31.6-35.1 RDW-SD (test code = 93442-7) 45.9 fL 39.0-49.9 RDW-CV (test code = 788-0) 12.6 % 12.0-15.5 PLT (test code = 777-3) 351 See_Comment [Automated messa ge] The system which generated this result transmitted reference range: 166 - 358 10*3/?L. The reference range was not used to interpret this result as normal/abnormal. MPV (test code = 90417-9) 9.5 fL 9.5-12.9 NRBC/100 WBC (test code = 0766444502) 0.0 See_Comment [Automated [employer] ssage] The system which generated this result transmitted reference range: 0.0 - 10.0 /100 WBCs. The reference range was not used to interpret this result as normal/abnormal. NRBC x10^3 (test code = 3653519896) See_Comment [Automated messa ge] The system which generated this result transmitted reference range: 10*3/?L. The reference range was not used to interpret this result as normal/abnormal. SEG % (test code = 23255-5) 40 % 33-76 LYMPH % (test code = 53685-1) 50 % 14-54 MONO % (test code = 61613-9) 7 % 0-4 H EOS % (test code = 91777-8) 3 % 0-3 ANC (test code = 753-4) 4.38 10*3/uL 1.88-7.09 Lab Interpretation (test code = 25713-0) Abnormal [facility] WITH [id number] 15:52:27* Test Item Value Reference Range Interpretation Comme nts WBC (test code = 6690-2) 10.94 See_Comment [Automated messa ge] The system which generated this result transmitted reference range: 4.30 - 11.10 10*3/?L. The reference range was not used to interpret this result as normal/abnormal. RBC (test code = 789-8) 4.04 See_Comment [Automated messa ge] The system which generated this result transmitted reference range: 3.93 - 5.25 10*6/?L. The reference range was not used to interpret this result as normal/abnormal. HGB (test code = 718-7) 13.5 g/dL 11.6-15.0 HCT (test code = 4544-3) 40.0 % 35.7-45.2 MCV (test code = 787-2) 99.0 fL 80.6-95.5 H MCH (test code = 785-6) 33.4 pg 25.9-32.8 H MCHC (test code = 786-4) 33.8 g/dL 31.6-35.1 RDW-SD (test code = 72942-7) 45.9 fL 39.0-49.9 RDW-CV (test code = 788-0) 12.6 % 12.0-15.5 PLT (test code = 777-3) 351 See_Comment [Automated messa ge] The system which generated this result transmitted reference range: 166 - 358 10*3/?L. The reference range was not used to interpret this result as normal/abnormal. MPV (test code = 94138-3) 9.5 fL 9.5-12.9 NRBC/100 WBC (test code = 6240888366) 0.0 See_Comment [Automated [employer] ssage] The system which generated this result transmitted reference range: 0.0 - 10.0 /100 WBCs. The reference range was not used to interpret this result as normal/abnormal. NRBC x10^3 (test code = 6329640838) See_Comment [Automated [employer]] The system which generated this result transmitted reference range: 10*3/?L. The reference range was not used to interpret this result as normal/abnormal. SEG % (test code = 31164-3) 40 % 33-76 LYMPH % (test code = 37522-2) 50 % 14-54 MONO % (test code = 60461-0) 7 % 0-4 H EOS % (test code = 53633-0) 3 % 0-3 ANC (test code = 753-4) 4.38 10*3/uL 1.88-7.09 Lab Interpretation (test code = 68848-8) Abnormal [facility] [id number] 14:48:02* Test Item Value Reference Range Interpretation Comme nts TROPONIN I (test code = 8833283951) 2.720 ng/mL <=0.034 H ELAINE (test code = ELAINE) Reference (Normal) Range (defined by the 99th percentile reference limit): <= 0.034 ng/mL Note: Cardiac troponin begins to rise 3-4 hours after the onset of ischemia. Repeat in 4-6 hours if the sample was drawn within 3-4 hours of the onset of the symptom and found normal. Diagnosis of myocardial injury is made with acute changes in cTn concentrations with at least one serial sample above the 99th percentile upper reference limit (URL), taken together with the patient's clinical presentation. Biotin has been reported to cause a negative bias, interpret results relative to patient's use of biotin. Lab Interpretation (test code = 25082-0) Abnormal [facility] [id number] 14:48:02* Test Item Value Reference Range Interpretation Comme nts TROPONIN I (test code = 0686838401) 2.720 ng/mL <=0.034 H ELAINE (test code = ELAINE) Reference (Normal) Range (defined by the 99th percentile reference limit): <= 0.034 ng/mL Note: Cardiac troponin begins to rise 3-4 hours after the onset of ischemia. Repeat in 4-6 hours if the sample was drawn within 3-4 hours of the onset of the symptom and found normal. Diagnosis of myocardial injury is made with acute changes in cTn concentrations with at least one serial sample above the 99th percentile upper reference limit (URL), taken together with the patient's clinical presentation. Biotin has been reported to cause a negative bias, interpret results relative to patient's use of biotin. Lab Interpretation (test code = 63043-0) Abnormal [facility] [id number] 14:48:02* Test Item Value Reference Range Interpretation Comme nts TROPONIN I (test code = 8849455733) 2.720 ng/mL <=0.034 H ELAINE (test code = ELAINE) Reference (Normal) Range (defined by the 99th percentile reference limit): <= 0.034 ng/mL Note: Cardiac troponin begins to rise 3-4 hours after the onset of ischemia. Repeat in 4-6 hours if the sample was drawn within 3-4 hours of the onset of the symptom and found normal. Diagnosis of myocardial injury is made with acute changes in cTn concentrations with at least one serial sample above the 99th percentile upper reference limit (URL), taken together with the patient's clinical presentation. Biotin has been reported to cause a negative bias, interpret results relative to patient's use of biotin. Lab Interpretation (test code = 44080-9) [facility]normal [facility] [id number] 14:47:31* Test Item Value Reference Range Interpretation Comme nts NT-proBNP (test code = 0297743098) 4180 pg/mL <=450 H ELAINE (test code = ELAINE) Biotin has been reported to cause a negative bias, interpret results relative to patient's use of biotin. Lab Interpretation (test code = 36127-1) [facility]normal [facility] [id number] 14:47:31* Test Item Value Reference Range Interpretation Comme nts NT-proBNP (test code = 4567901164) 4180 pg/mL <=450 H ELAINE (test code = ELAINE) Biotin has been reported to cause a negative bias, interpret results relative to patient's use of biotin. Lab Interpretation (test code = 09521-9) [facility]normal [facility] [id number] 14:47:31* Test Item Value Reference Range Interpretation Comme nts NT-proBNP (test code = 7557998622) 4180 pg/mL <=450 H ELAINE (test code = ELAINE) Biotin has been reported to cause a negative bias, interpret results relative to patient's use of biotin. Lab Interpretation (test code = 60301-9) Abnormal [facility]. METABOLIC PANEL (58497)2023-04-07 14:25:24* Test Item Value Reference Range Interpretation Comme nts NA (test code = 6926727739) 141 mmol/L 135-145 K (test code = 5420988257) 3.9 mmol/L 3.5-5.0 CL (test code = 9113346159) 107 mmol/L 98-108 CO2 TOTAL (test code = 0738191681) 20 mmol/L 23-31 L AGAP (test code = 7225667003) 14 2-16 BUN (test code = 3302690166) 31 mg/dL 7-23 H GLUCOSE (test code = 5609862773) 135 mg/dL 70-110 H CREATININE (test code = 5554002900) 0.85 mg/dL 0.50-1.04 TOTAL BILI (test code = 5495304149) 0.7 mg/dL 0.1-1.1 CALCIUM (test code = 6692745493) 9.4 mg/dL 8.6-10.6 T PROTEIN (test code = 5044058102) 6.8 g/dL 6.3-8.2 ALBUMIN (test code = 4129131910) 4.2 g/dL 3.5-5.0 ALK PHOS (test code = 0961726891) 99 U/L 34-122 ALTv (test code = 1742-6) 22 U/L 5-35 AST(SGOT) (test code = 9464565396) 40 U/L 13-40 eGFR (test code = 1334891233) 64.0 mL/min/1.73m2 ELAINE (test code = ELAINE) Association of Glomerular Filtration Rate (GFR) and Staging of Kidney Disease* + --+ --+ ------+| GFR (mL/min/1.73 m2) ?| With Kidney Damage ?| ?Without Kidney Damage+ --------+ --------+ +| ?>90 ?| ?Stage one ?| ? Normal ?+ ---+ ---+ -------+| ?60-89 ?| ?Stage two ?| ? Decreased GFR ? + --+ --+ ------+| ?30-59 ?| ?Stage three ?| ? Stage three ? + --+ --+ ------+| ?15-29 ?| ?Stage four ? | ? Stage four ?+ ---+ ---+ -------+| ?<15 (or dialysis) ? ?| ?Stage five ? | ? Stage five ?+ ---+ ---+ -------+ *Each stage assumes the associated GFR level has been in effect for at least three months. ?Stages 1 to 5, with or without kidney disease, indicate chronic kidney disease. Notes: Determination of stages one and two (with eGFR >59mL/min/1.73 m2) requires estimation of kidney damage for at least three months as defined by structural or functional abnormalities of the kidney, manifested by either:Pathological abnormalities or Markers of kidney damage (including abnormalities in the composition of the blood or urine or abnormalities in imaging tests). Lab Interpretation (test code = 79527-2) [facility]normal [facility] 14:25:24* Test Item Value Reference Range Interpretation Comme nts MAGNESIUM (test code = 9111240561) 1.7 mg/dL 1.7-2.4 Lab Interpretation (test cod e = 74918-1) Normal [facility] MET[facility]OLIC PANEL (26621)2023-04-07 14:25:24* Test Item Value Reference Range Interpretation Comme nts NA (test code = 6302823712) 141 mmol/L 135-145 K (test code = 2311500250) 3.9 mmol/L 3.5-5.0 CL (test code = 8543140305) 107 mmol/L 98-108 CO2 TOTAL (test code = 2921233075) 20 mmol/L 23-31 L AGAP (test code = 4568833063) 14 2-16 BUN (test code = 6495522636) 31 mg/dL 7-23 H GLUCOSE (test code = 7793648739) 135 mg/dL 70-110 H CREATININE (test code = 6041560068) 0.85 mg/dL 0.50-1.04 TOTAL BILI (test code = 2660740755) 0.7 mg/dL 0.1-1.1 CALCIUM (test code = 1994758983) 9.4 mg/dL 8.6-10.6 T PROTEIN (test code = 0802115631) 6.8 g/dL 6.3-8.2 ALBUMIN (test code = 3153135379) 4.2 g/dL 3.5-5.0 ALK PHOS (test code = 3928866784) 99 U/L 34-122 ALTv (test code = 1742-6) 22 U/L 5-35 AST(SGOT) (test code = 6881286559) 40 U/L 13-40 eGFR (test code = 1525507918) 64.0 mL/min/1.73m2 ELAINE (test code = ELAINE) Association of Glomerular Filtration Rate (GFR) and Staging of Kidney Disease* + --+ --+ ------+| GFR (mL/min/1.73 m2) ?| With Kidney Damage ?| ?Without Kidney Damage+ --------+ --------+ +| ?>90 ?| ?Stage one ?| ? Normal ?+ ---+ ---+ -------+| ?60-89 ?| ?Stage two ?| ? Decreased GFR ? + --+ --+ ------+| ?30-59 ?| ?Stage three ?| ? Stage three ? + --+ --+ ------+| ?15-29 ?| ?Stage four ? | ? Stage four ?+ ---+ ---+ -------+| ?<15 (or dialysis) ? ?| ?Stage five ? | ? Stage five ?+ ---+ ---+ -------+ *Each stage assumes the associated GFR level has been in effect for at least three months. ?Stages 1 to 5, with or without kidney disease, indicate chronic kidney disease. Notes: Determination of stages one and two (with eGFR >59mL/min/1.73 m2) requires estimation of kidney damage for at least three months as defined by structural or functional abnormalities of the kidney, manifested by either:Pathological abnormalities or Markers of kidney damage (including abnormalities in the composition of the blood or urine or abnormalities in imaging tests). Lab Interpretation (test code = 88299-5) [facility]normal [facility] 14:25:24* Test Item Value Reference Range Interpretation Comme nts MAGNESIUM (test code = 1782059597) 1.7 mg/dL 1.7-2.4 Lab Interpretation (test cod e = 00845-3) Normal [facility]OL[facility] PAN[facility] (45637)2023-04-07 14:25:24* Test Item Value Reference Range Interpretation Comme nts NA (test code = 6271207494) 141 mmol/L 135-145 K (test code = 4435318131) 3.9 mmol/L 3.5-5.0 CL (test code = 8654354173) 107 mmol/L 98-108 CO2 TOTAL (test code = 2684742396) 20 mmol/L 23-31 L AGAP (test code = 6828186483) 14 2-16 BUN (test code = 7242465324) 31 mg/dL 7-23 H GLUCOSE (test code = 1286931725) 135 mg/dL 70-110 H CREATININE (test code = 2451055319) 0.85 mg/dL 0.50-1.04 TOTAL BILI (test code = 0618384765) 0.7 mg/dL 0.1-1.1 CALCIUM (test code = 5499198276) 9.4 mg/dL 8.6-10.6 T PROTEIN (test code = 1833678650) 6.8 g/dL 6.3-8.2 ALBUMIN (test code = 7528231158) 4.2 g/dL 3.5-5.0 ALK PHOS (test code = 9191728560) 99 U/L 34-122 ALTv (test code = 1742-6) 22 U/L 5-35 AST(SGOT) (test code = 6946372989) 40 U/L 13-40 eGFR (test code = 0734466629) 64.0 mL/min/1.73m2 ELAINE (test code = ELAINE) Association of Glomerular Filtration Rate (GFR) and Staging of Kidney Disease* + --+ --+ ------+| GFR (mL/min/1.73 m2) ?| With Kidney Damage ?| ?Without Kidney Damage+ --------+ --------+ +| ?>90 ?| ?Stage one ?| ? Normal ?+ ---+ ---+ -------+| ?60-89 ?| ?Stage two ?| ? Decreased GFR ? + --+ --+ ------+| ?30-59 ?| ?Stage three ?| ? Stage three ? + --+ --+ ------+| ?15-29 ?| ?Stage four ? | ? Stage four ?+ ---+ ---+ -------+| ?<15 (or dialysis) ? ?| ?Stage five ? | ? Stage five ?+ ---+ ---+ -------+ *Each stage assumes the associated GFR level has been in effect for at least three months. ?Stages 1 to 5, with or without kidney disease, indicate chronic kidney disease. Notes: Determination of stages one and two (with eGFR >59mL/min/1.73 m2) requires estimation of kidney damage for at least three months as defined by structural or functional abnormalities of the kidney, manifested by either:Pathological abnormalities or Markers of kidney damage (including abnormalities in the composition of the blood or urine or abnormalities in imaging tests). Lab Interpretation (test code = 69557-2) [facility] 14:25:24* Test Item Value Reference Range Interpretation Comme nts MAGNESIUM (test code = 2921255552) 1.7 mg/dL 1.7-2.4 Lab Interpretation (test cod e = 84403-6) Normal [facility] 14:25:04* Test Item Value Reference Range Interpretation Comme nts LIPASE (test code = 8632153721) 94 U/L 0-220 Lab Interpretation (test cod e = 41557-7) Normal [facility] 14:25:04* Test Item Value Reference Range Interpretation Comme nts LIPASE (test code = 4845057271) 94 U/L 0-220 Lab Interpretation (test cod e = 11808-3) Normal [facility] 14:25:04* Test Item Value Reference Range Interpretation Comme nts LIPASE (test code = 8421976970) 94 U/L 0-220 Lab Interpretation (test cod e = 80998-9) Normal [facility]ACT[facility] THRMPLAS [id number] 14:21:06* Test Item Value Reference Range Interpretation Comme nts APTT Patient (test code = 3173-2) 27 See_Comment [Automated message] The system which generated this result transmitted reference range: 23 - 38 Seconds. The reference range was not used to interpret this result as normal/abnormal. ELAINE (test code = ELAINE) The [facility] patient population mean normal value for aPTT is 30 seconds. Lab Interpretation (test code = 60948-8) Normal [facility] THRMPLAS [id number] 14:21:06* Test Item Value Reference Range Interpretation Comme [facility] APTT Patient (test code = 3173-2) 27 See_Comment [Automated message] The system which generated this result transmitted reference range: 23 - 38 Seconds. The reference range was not used to interpret this result as normal/abnormal. ELAINE (test code = ELAINE) The [facility] patient population mean normal value for aPTT is 30 seconds. Lab Interpretation (test code = 26896-4) Normal [facility] THRM[facility] [id number] 14:21:06* Test Item Value Reference Range Interpretation Comme [facility] APTT Patient (test code = 3173-2) 27 See_Comment [Automated message] The system which generated this result transmitted reference range: 23 - 38 Seconds. The reference range was not used to interpret this result as normal/abnormal. ELAINE (test code = ELAINE) The [facility] patient population mean normal value for aPTT is 30 seconds. Lab Interpretation (test code = 38215-0) Normal [facility] CenterPROTHROMBIN TIME / [id number] 14:19:05* Test Item Value Reference Range Interpretation Comme [facility] PROTIME PATIENT (test code = 5964-2) 12.7 See_Comment [Automated [employer]] The system which generated this result transmitted reference range: 12.0 - 14.7 Seconds. The reference range was not used to interpret this result as normal/abnormal. INR (test code = 6301-6) 1.0 Normal INR <1.1; Warfarin Therapeutic range 2.0 to 3.0 or 2.5 to 3.5, depending upon the indications. Lab Interpretation (test code = 08527-6) Normal [facility] CenterPROTHR[facility] TIME / [id number] 14:19:05* Test Item Value Reference Range Interpretation Comme [facility] PROTIME PATIENT (test code = 5964-2) 12.7 See_Comment [Automated [employer]] The system which generated this result transmitted reference range: 12.0 - 14.7 Seconds. The reference range was not used to interpret this result as normal/abnormal. INR (test code = 6301-6) 1.0 Normal INR <1.1; Warfarin Therapeutic range 2.0 to 3.0 or 2.5 to 3.5, depending upon the indications. Lab Interpretation (test code = 77258-9) Normal [facility] CenterPROTHR[facility] TIME / [id number] 14:19:05* Test Item Value Reference Range Interpretation Comme nts JAVIER PATIENT (test code = 5964-2) 12.7 See_Comment [Automated messa ge] The system which generated this result transmitted reference range: 12.0 - 14.7 Seconds. The reference range was not used to interpret this result as normal/abnormal. INR (test code = 6301-6) 1.0 Normal INR <1.1; Warfarin Therapeutic range 2.0 to 3.0 or 2.5 to 3.5, depending upon the indications. Lab Interpretation (test code = 63296-0) Normal [facility] [place] [address] Patient Name: Carol Workman Medical Record#: [id number] Address: [address] City/State/Zip: [place] [address]: Iam Brooke MD Insurance: [employer] ADV /Age/Sex: 1940/82/F Self Pay Admit/Reg Date: 05/14/[address]: MILADIS Baldwin Location: [facility]/ PCP: PCP,UNKNOWN Date of Service: 05/14/23 Order (s): EKG ED Electrocardiogram CPT Code: 54596 Report Number: [id number] Reason for Exam: Chest Pain Sinus rhythm Prolonged QT interval Leftward axis Diffuse ST-T abnormality may be due to myocardial ischemia Summary: Abnormal ECG Dictated By: Saman Monotya MD 05/14/23 1640 Signed By: Saman Montoya MD 05/17 1130 TD/TT: 05/14/23 1640 Tech: SVCCPA cc: GUAAL; PCPUNK* Tawana Campos PAC; PCP,UNKNOWNCT head[place] [address] Patient Name: Carol Workman Medical Record#: [id number] Address: [address] City/State/Zip: [place] [address]: Iam Brooke MD Insurance: [employer] /Age/Sex: 1940/82/F Self Pay Admit/Reg Date: 05/14/[address]: MILADIS Baldwin Location: [facility]/ PCP: PCP,UNKNOWN Date of Service: 05/14/23 Order (s): CT head/brain wo contrast CPT Code: 72643 Report Number: [id number] Reason for Exam: sudden personality change R 16 TIME OF STUDY: 05/14/2023 3:18 PM CDT REASON FOR EXAM: sudden personality change COMPARISON: None. TECHNIQUE: Routine non contrast enhanced axial images were obtained for the skull base tothe vertex. Sagittal and coronal reformats were obtained and reviewed. One or more of the followingradiation dose reduction techniques was used: automated exposure control, adjustment of mA and/or KV according to patient size, and/or utilization of iterative reconstruction technique. FINDINGS: Theventricles and cortical sulci demonstrate mild diffuse prominence, with generalized parenchymal volume loss. There is no midline shift or mass-effect. No acute intra-axial hemorrhage is present. There is encephalomalacia from old infarct in the basal ganglia. There are nonspecific focal and confluent areas of abnormal low attenuation in the periventricular and subcortical white matter. No evidence of acute cortical infarct is present. No extra-axial masses or collections are present. The bony calvarium is intact. The paranasal sinuses are clear. Mastoid air cells are patent. Bilateral lens implants are present. IMPRESSION: 1. 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 No CT evidence of intracranial hemorrhage or acute cortical infarct. 2. Nonspecific white matter changes which may represent chronic small vessel ischemia. If there is clinical concern for acute ischemia, MRI can be obtained. 3. Generalized parenchymal volume loss. Electronically signed by: Deshaun Urbina MD 05/14/2023 4:06 PM CDT Dictated By: Deshaun Urbina MD 05/14/23 151 Signed By: Deshaun Urbina MD 05/14/23 1608 TD/TT: 05/14/23 1518 Tech: [id number] cc: MEGL; PCPUNK* MILADIS Baldwin; PCP,UNKNOWN Consult Notes Date/Time Note Provider Source 2023 10:35:00 [id number]:35:00Associated Order(s): CONSULT ADULT PHYSICAL THERAPY Patient agreeable to working with physical therapy. Patient met up in chair.Recommend nursing staff utilize rw and supv to safely assist patient with mobility out of the bed or chair.PHYSICAL THERAPY EVALUATIONConsult received, chart reviewed and evaluation complete this date. Patient is referred to PT for evaluation and treatment. Patient is a 83 year old female who presents to hospital for Pneumoperitoneum [K66.8] . Discharge Recommendations: Therapy Needs and Potential:Patient would benefit from continued physical therapy services to address: decline in bed mobility decline in transfers decline in gait and/or balance decline in stair/step negotiation decreased strength decreased endurance integument compromisePatient demonstrates good potential to improve and meet therapy goals with further physical therapy services.Patient appears motivated to improve their functional mobility and return to their previous level of function.Patient demonstrates ability to tolerate atleast 30-60 minutes of physical therapy with active participation.Challenges to Home Transition: increased risk of fallsdecreased safety awarenessPt and family report "she walks fine at home, she uses the barba for balance"2 steps to enter home, environmental barrierEquipment recommendations:Patient has or access to necessary equipmentPt family member at bedside reports "I have a RW I can bring to the hospitalCurrent Functional Status and/or Treatment: AM-PAC 6 Clicks (Raw Score 0=Dependent, 24=Independent; Low function Raw Score 0= Dependent, 32=Independent):Raw Score - Basic Mobility : 18T-Scale Score - Basic Mobility : 41.05 Bed Mobility:Defer due to pt found in chair, wishing to remain in chair at close of session. Given decreased strength and endurance in session, PT estimates min A for bed mobility Transfers: sit-stand: SupervisionSit to stand: Supervision using Rolling WalkerStand to sit: Supervision using Rolling WalkerStatic/dynamic standing balance: FairVerbal cueing provided for correct hand placement and correct use of AD Pt with difficulty initiating sit<>stand, PT incorporates multisensory cues for momentum, pt then able to perform sit stand with and without RWSit<>stand from multiple surfaces 0 LOB/instabilityPt exhibits postural sway and min stepping strategy when performing transfer without AD.Ambulation: Assisted patient with ambulation as follows: 15,15,50,50 feet using Rolling Walker and Supervision.Patient presenting with Step-through gait pattern. Instructed patient in directional changes and head movements in all planes during gait trial resulting in mod instability and 2x LOB. Without AD pt exhibits path deviation in gait, alternating BUE reaching for support, and 2x instances of LOB. Pt self correct for one instance, requires min A from therapist during 2nd LOB.With AD, pt supervision with gait. PT incorporates bilateral turns and dual tasking with conversation during gait, 0 LOB, instability. Pt exhibits minor path deviations, but able to recognize and avoid obstacles.Pt exhibits min SOB during ambulation, resolves with seated rest breakTherapeutic exercise: patient educated in Adaptive equipment , Compensatory techniques/adaptive strategies, Edema management, Fall prevention, General strengthening, Positioning, and Safety awareness., instructed patient in the following: ankle pumps, glut sets, long arc quads, seated marching, Qh supervision ambulation, patient/caregiver instructed to perform HEP 3 times per day, 10 repetitions., and patient/caregiver verbalizes understanding of instructions.Pt educates on importance of therex and ambulation to help address edema on BLE R>L.Functional Outcome Measures: (Values within the past 12 hours) Tinetti Gait Score- # / 12Initiation of gait: No hesitancyStep length: On both sides, swing foot passes stance footFoot clearance: Both feet completely clear floorStep Symmetry: Step lengths not equalStep continuity: Steps appear continuousPath: Marked deviationTrunk: Marked sway or uses ADWalking: Heels apartTinetti Gait Score: 6Tinetti Gait Score Interpretation: < 7 - Increased risk for falls After session, patient up in chair. Call button provided. RN apprised of position and performance.PLAN OF CARE: While in the hospital, PT will follow patient at least 3 times per week,once or twice a day, per patient's tolerance and needs.See below for complete details. Admit Date: 05/16/2023 Hospital Diagnosis:Pneumoperitoneum [K66.8] PT Diagnosis: Difficulty walking, Weakness, Malaise/fatigue, Pain, Abnormality of gait and balance, and Integument compromiseWeight Bearing Precaution: NA General Precautions: PPE used:Gloves, General, Fall, Lines/Tubes,IV LUEBracing/Cast present or required:N/APMH: Past Medical History: Diagnosis Date HLD (hyperlipidemia) HTN (hypertension) Hypothyroidism, unspecified PSH: No past surgical history on file.Prior Living Situation: lives with their family and in a house, 2 steps to enter, no handrailDME: Single Point Cane, Rolling WalkerPrior level of Mobility: house hold ambulation, ambulates with Straight Cane, Four wheeled walker with seat, pt reports more using "wall walking" between recliner and dinner table Suspected ischemic or hemorraghic stroke:NoSubjective: Pt repots minor neck pain after ambulating, reports "my legs are weak from no food"Patient/Family Goals: return to PLOFPatient/Family verbalizes understanding of condition: Yes PAIN: -Pain Description: dull-Pain Location: neck-Pain rating before treatment: 4, After treatment: 4-Pain Management: Reports taking pain meds, Nursing Notified, Decreased movement aides in some pain reduction, and Repositioning ProvidedCOMMUNICATIONPrimary Language: Romanian Able to Verbalize needs: Yes Vision:good; no issues reported Hearing:good; no issues reported ORIENTATION/COGNITION:Oriented to: person, place, date/time, and situation Awake: Yes Alert: Yes Dizzy: No Follows Commands: Yes 1-Step Yes Multi-Step Yes Inconsistent: No NEUROLOGICALLight Touch: within functional limits bilateral LE, Heel to brooke: wflTone: wfl BALANCE:Sitting: Static: Good Dynamic: GoodStanding: Static: Good Dynamic: GoodRANGE OF MOTION: within functional limits bilateral LE, STRENGTH: 3+/5 (F+), bilateral LE ENDURANCE: Fair, Room air SKIN INTEGRITY: intact, pitting edema noted around sock elastic, educated to remove unless ambulating PROBLEM LIST: Decline in bed mobility, Decline in gait, Decline in transfers, Difficulty with stairs, Decreased strength, Decreased endurance, Decreased balance, Safety awareness deficits, Pain, and Integument compromiseASSESSMENT: Patient is a 83 year old female seen secondary to the above listed diagnosis. Patient would benefit from continued PT to address the above listed deficits to maximize independence and safety with functional mobility. Rehabilitation Potential: good Goals: The following goals are to maximize independence and safety with functional mobility to eventually return to prior living situation and prior functional status. Upon discharge, patient and/or family will demonstrate the followin. Rolling: IndependentSupine-sit: IndependentSitting balance Excellent Scooting to edge of bed: IndependentSit to supine: Independent2. Sit to stand: Independent using Rolling WalkerStand to sit: Independent using Rolling Walker3. Independent with ambulation, Feet: 300 using least assistive device. 4. Independent up/down 2 stairs using no rails.5. Demonstrate or verbalize understanding of home exercise program in order to continue with their rehab on their own.Treatment Plan: Gait training, Gait training on stairs, Therapeutic exercise, Transfer training, Balance training, Bed mobility training, Equipment needs assessment, Safety education, patient/caregiver education, Wheelchair mobility training, Pain management, Neuromuscular Re-Education, Sensory Integration, and Functional Motor TrainingPATIENT EDUCATION: Patient and Family member provided with preferred teaching of verbal information and demonstration on role of PT, plan of care, . Shows readiness to learn. Verbal instruction and Demonstration teaching provided. Individual is able to read and verbalizes understanding of teaching provided and accurately returns demonstration of skill.Total Time Tx Codes in Minutes: 25 minTotal Treatment Time in Minutes: 35 minFrank Lux PT, DPTRehabilitation Services [id number] rqvvGY4009-66-22K84:38:18Consult [id number]. [id number] for patient [id number] [id number] R Brown PTUTMBCARLSBAD MEDICAL CENTER - [id number] JGQJHSOYXXQOZXXFYXAOB6562-58-53X06:38 :181.2.840.932892.1.72.3.15|1.2.840.1 [id number] 8 Frank Lux PT [facility] - Health History and Physical Notes Date/Time Note Provider Source 2023-05-16 03:29:17 [id number]:29:17F kelley ott of this note is different from the original.Date of Service: 05/16/23CHIEF COMPLAINTAbdominal painDuration: 1 dayHISTORY OF PRESENT ILLNESSMsRobyn Workman is am 82 year old woman with pmh of NSTEMI 1 month ago s/p 3 vessel stent placement on ASA and Brilenta, HFpEF, HTN, HLD, and hypothyroidism who presents to the ED as a transfer from [place]. She initally started having pain yesterday after eating a cheeseburger and cookies. She has had some associated nausea and dry heaving but no vomiting. Patient received morphine in route and appears somnolent. History provided by granddaughter at bedside. ALLERGIES: No Known Allergies MEDICATIONS: Home Medications:- ASA 81mg- Ticagrelor 90mg - atorvastatin 40mg- furosemide 40mg- levothyroxine 50mcg- lisinopril 20mg- metoprolol 25mgLast Taken: PAST MEDICAL HISTORY:- NSTEMI 04/07/23-HFpEFPast Medical History: Diagnosis Date HLD (hyperlipidemia) HTN (hypertension) Hypothyroidism, unspecified FAMILY HISTORY: Non-contributory to ccSOCIAL HISTORY: Social History Socioeconomic History Marital status: Spouse name: Not on file Number of children: Not on file Years of education: Not on file Highest education level: Not on file Occupational History Not on file Tobacco Use Smoking status: Never Passive exposure: Never Smokeless tobacco: Never Substance and Sexual Activity Alcohol use: Not on file Drug use: Not on file Sexual activity: Not on file Other Topics Concern Not on file Social History Narrative Not on file Social Determinants of Health Financial Resource Strain: Low Risk (04/08/2023) Overall Financial Resource Strain (CARDIA) Difficulty of Paying Living Expenses: Not hard at all Food Insecurity: No Food Insecurity (04/08/2023) Hunger Vital Sign Worried About Running Out of Food in the Last Year: Never true Ran Out of Food in the Last Year: Never true Transportation Needs: No Transportation Needs (04/08/2023) PRAPARE - Transportation Lack of Transportation (Medical): No Lack of Transportation (Non-Medical): No Physical Activity: Inactive (04/08/2023) Exercise Vital Sign Days of Exercise per Week: 0 days Minutes of Exercise per Session: 0 min Stress: Not on file Social Connections: Unknown (04/08/2023) Social Connection and Isolation Panel [NHANES] Frequency of Communication with Friends and Family: More than three times a week Frequency of Social Gatherings with Friends and Family: Not on file Attends Anabaptism Services: Not on file Active Member of Clubs or Organizations: Not on file Attends Club or Organization Meetings: Not on file Marital Status: Intimate Partner Violence: Not on file Housing Stability: Low Risk (04/08/2023) Housing Stability Vital Sign Unable to Pay for Housing in the Last Year: No Number of Places Lived in the Last Year: 1 Unstable Housing in the Last Year: No REVIEW OF SYSTEMSUnable to evaluate due to pt somnolence Estimated Weight: 79.4 KgPHYSICAL EXAMBP (!) 146/62 | Pulse 89 | Temp 36.1 ?C (97 ?F) (Oral) | Resp 16 | SpO2 97% General: alert and oriented x 4 (person, place, date/time, and situation); no apparent distressLungs: clear to auscultation bilaterallyCardio: S1, S2 normal; no murmurs, rubs or gallopsAbdomen: soft; non-tender; non-distended; normoactive bowel soundsExtremities: no clubbing, cyanosis, or edemaSkin: no rashesLABORATORY RESULTSCBC BMP PT/INR WBC (10*3/?L) Date Value 05/15/2023 10.76 NA (mmol/L) Date Value 05/15/2023 138 No results found for: "PT" RBC (10*6/?L) Date Value 05/15/2023 3.69 (L) K (mmol/L) Date Value 05/15/2023 4.1 INR (no units) Date Value 04/07/2023 1.0 PLT (10*3/?L) Date Value 05/15/2023 424 (H) CALCIUM (mg/dL) Date Value 05/15/2023 9.3 HGB (g/dL) Date Value 05/15/2023 12.3 CL (mmol/L) Date Value 05/15/2023 102 aPTT HCT (%) Date Value 05/15/2023 36.5 BUN (mg/dL) Date Value 05/15/2023 21 APTT Patient (Seconds) Date Value 04/10/2023 86 (H) CREATININE (mg/dL) Date Value 05/15/2023 1.57 (H) GLUCOSE (mg/dL) Date Value 05/15/2023 175 (H) CO2 TOTAL (mmol/L) Date Value 05/15/2023 23 X-RAY RESULTSCT ABDOMEN PELVIS WO CONTRASTResult Date: 05/15/2023Large hiatal hernia, with the majority of the stomach intrathoracic. Mild to moderate pneumoperitoneum, with extraluminal air seen within the hernia sac and within the anterior upper abdomen. The exact point of perforation is not definitively identified, but perforation of the stomach within the hernia or the distal stomach is favored. There is no significant diverticular disease or free air in the pelvis to suggest perforation of a pelvic bowel loop. No urinary system calculus or hydronephrosis. RL: 460 AFC: 80426 Critical Result: Pneumoperitoneum Findings discussed with TIFFANY OLEARY at 05/15/2023 11:21 PM, and acknowledged receipt and understanding of the findings. XR CHEST 1 VWResult Date: 05/15/2023Slightly improving interstitial edema. Large retrocardiac hiatal hernia. HS: Y END OF REPORT RIES/PROBLEMS/DIAGNOSES and TREATMENT PLAN:Assessment:Ms. Workman is an 82 year old woman with history of NSTEMI 1 month ago s/p 3 vessel stent placement on ASA and Brilenta, HFpEF, HTN, HLD, and hypothyroidism who presents with 1 day of diffuse abdominal pain, nausea, and dry heaving. Her CT abdomen pelvis showed a large hiatal hernia and pneumoperitoneum with air in the hernia sac. Currently, her vital signs are stable and her abdominal exam showed no tenderness to palpation at this time. Due to her surgical risk factors she would benefit from cardiac optimization prior to operative management. Complexity of this case was discussed with family at bedside, patient was at full capacity of making decisions prior to morphine. Plan: Neuro: Pain management as needed, tylenol and morphine PRNCardio: telemetry, TTE, holding brilinta and ASA, IVF, consult cardiology Respiratory: NC as neededGI: NPO, PPI, holding NGT for now, will reconsider if pt develops emesis, serial abdominal examsGU: jackson catheter, strict I&O, electrolyte replacement as neededHeme: Type and screen, coags, DVT prophylaxisID: Zosyn and fluconazoleLabs: CBC, BMP, PT/PTT, FibrinogenDispo: ICUCOMPLICATIONS/SECONDARY DIAGNOSISCardiovascular/ Cerebrovascular: Congestive Heart Failure Chronic DiastolicCAD, of tejon coronary with angina and recent NSTEMIDr. Rohit, Faculty, was notified of admission on 05/16/23 at 0345AM.KEKE Dominguez-1 ssociated attestation - Thiago Bee MD - 05/17/2023 8:52 AM CDT AttendingSeen and examined by me on 16May2023, discussed with Dr Rowan. Agree with the history, exam, and medical decision making in her note that was directed by me. Briefly, this is an 82 yo woman who presents with retching/nausea and epigastric abdominal pain. This information was obtained from patient and her granddaughter. On exam, her abdomen is mildly tender in the epigastrium with no signs of peritonitis.Principal Problem: Pneumoperitoneum (05/16/2023) (POA: Yes) Her past medical history includes Past Medical History: Diagnosis Date HLD (hyperlipidemia) HTN (hypertension) Hypothyroidism, unspecified She recently underwent coronary artery stenting a month ago with an associated NSTEMI. Notable labs, imaging, and other tests that we ordered include leukocytosis, macrocytic anemia, mild azotemia, hyperglycemia, elevated serum creatinine 1.69 (211% increase from baseline). Her imaging reveals a large hiatal hernia containing most of the stomach, moderate pneumoperitoneum with extraluminal iar in the hernia sac suggesting bowel perforation. The notes from Dr Martel (ED) were reviewed to clarify diagnoses and treatment. Her principal diagnosis for us is pneumoperitoneum with large hiatal hernia. Medical decision-making for her course is complicated by additional conditions including recent coronary artery stenting and DE. Our plan is admission to the ICU for close monitoring with upper GI imaging to locate potential source of perforation. The decision-making is complex as her exam and labs are reasonably stable suggesting the hole has sealed, however, this could significantly worsen at any time. This is further complicated by her recent DE making any operative intervention treacherous.Number and Complexity of Problems AddressedPrincipal Diagnosis: pneumoperitoneum with large hiatal hernia (Poses a threat to life or bodily function near term without intervention) Secondary Diagnosis: Recent DE with coronary artery stenting (New problem with uncertain prognosis and further assessment pursued)High - one acute or chronic illness/injury that poses a threat to life or bodily function near term without interventionAmount and Complexity of Data to be Reviewed and AnalysedReviewed external notes, Reviewed test results, and Ordered new testsModerate - at least three of a) review of external notes, b) review of test results, c) ordering tests, and/or d) assessment involving an independent historianRisk of Complications and/or Morbidity or Mortality of Patient ManagementHigh, High risk of morbidity from additional diagnostic testing or treatment, and Decision for admission or escalation of hospital level of care (ICU transfer)CPT: 01451 - Admit/Observation High (at least two of number and complexity of problems, amount of data, and risk of complications are high)81690-9Hsxrzad and physical [id number], Steven1.2.840.099050.1.13.10 4.2.7.2.045141DlnhRigfylWH64 22-05-18T08:52:31History and physical noteTXT1.2.840.633217.1.13.1 04.2.7.2.623453|[id number] Available for patient yxhx64576-2Lqsgmzj and physical noteLNRAD-VASCULAR & INTERVENTIONAL RADIOLOGYRAD-VASCULAR & INTERVENTIONAL RADIOLOGY[address] KatkLwygqkodaAaliiqxreLPJS46 [id number] RN4147-53-95S96:52:311.2.840 .612319.1.72.3.15|1.2.840.11 4350.1.13.104.2.7.2.727879_1 [id number] RAD-VASCULAR & INTERVENTIONAL RADIOLOGY [facility] Notes Date/Time Note Provider Source 2023-05-21 17:03:07 [id number]:03:07 TRANSITIONAL CARE MANAGEMENT ASSESSMENT05/21/2023 Carol [id number] M Struzinski is a 83 year old /White female was admitted on 05/16/[address] She was discharged on 05/19/23 with discharge disposition of HR- Routine Discharge.Admitting Physician: Edward Bee Diagnosis: Pneumoperitoneum No linked episodesTCM Rif-bpqu-od-face outreach documentation:Discharge AssessmentChart Assessed: 05/21/23TCM Outreach Completed: 05/21/23Do you have a few minutes to speak with me about how you are doing at home?: Yes (Per daughter patient is doing allright)Discharge InstructionsDo you understand your at-home instructions?: YesMedicationsHave you filled your prescriptions and do you have them in your home? : YesDo you know how to take your medications?: YesSuppliesDid you receive applicable home medical supplies/equipment?: N/AFollow Up AppointmentHas a follow up appointment been scheduled?: YesDo you have any questions about your follow up appointments?: NoAre you able to get to your appointment? Who will be taking you?: Yes (daughter)Home Health AssistanceHas the home health nurse contacted you since you've been home?: N/ASurvey - RecognitionIs there anything you would like to share about your recent hospitalization, or anyone you would like to recognize?: NoDo you have any suggestions for improvement?: NoDo you have any other questions or concerns at this time?: NoFuture Appointments: Future Appointments Provider Department Dept Phone 06/04/2023 1:30 PM Service/[place] [phone] 79008-1Xdjlskgtc encounter VkisVU0548-62-65H64:03:21Telephon e encounter NoteTXT1.2.840.563888.1.13.104.2. 7.2.760356|[id number] for patient [id number] B Porter RNUT[address]TXTX[address] 708KXGXNYLNKBHPHRYXZXKYCC2944-83- 22T17:03:211.2.840.077698.1.72.3. 15|1.2.840.810888.1.13.104.2.7.2. [id number] Ruma Salinas RN [facility] 2023-05-21 13:54:05 6565-18-93G37:54:05 TRANSITIONAL CARE MANAGEMENT ASSESSMENT05/21/2023 Carol WorkmanBjyhlvsfit787787KQcunof M Struzinski is a 83 year old /White female was admitted on 05/16/[address] She was discharged on 05/19/23 with discharge disposition of HR- Routine Discharge.Admitting Physician: Edward Bee Diagnosis: Pneumoperitoneum No linked episodesTCM Uie-rulq-rp-face outreach documentation: Transition CM attempted to contact patient for post discharge follow up. Phone rang. No answer and unable to leave a message. Future Appointments: Future Appointments Provider Department Dept Phone 05/21/2023 2:00 PM Service/[place], [facility] [phone] 35752-5Ezvlyceje encounter SuwqHG6370-70-16D69:54:32Telephon e encounter NoteTXT1.2.840.601543.1.13.104.2. 7.2.892038|[id number] for patient [id number] B Porter RNUT[id number] 276DKDAGTKBSCZVLDESVNLMIF4600-57- 22T13:54:321.2.840.780042.1.72.3. 15|1.2.840.631370.1.13.104.2.7.2. [id number] Ruma Jimenez Brad SALVADOR [facility] 2023-05-19 12:21:36 9606-31-92Q47:21:36 Problem: PainGoal: Control of pain at or below patient's documented comfort goal05/19/20231220 by Shara Taylor RNOutcome: Adequate for discharge05/19/2023932 by Shara Taylor RNOutcome: Progressing as expectedGoal: Reduction in pain sensation05/19/20231220 by Shara Taylor RNOutcome: Adequate for discharge05/19/2023932 by Shara Taylor RNOutcome: Progressing as expected Problem: Mobility - ImpairedGoal: Able to achieve maximum mobility level05/19/20231220 by Shara Taylor RNOutcome: Adequate for discharge05/19/2023932 by Shara Taylor RNOutcome: Progressing as expected Problem: Discharge PlanningGoal: Adequate for discharge05/19/20231220 by Shara Taylor RNOutcome: Adequate for discharge05/19/2023932 by Shara Taylor RNOutcome: Progressing as expectedGoal: Effective communication05/19/20231220 by Shara Taylor RNOutcome: Adequate for discharge05/19/2023932 by Shara Taylor RNOutcome: Progressing as expected Problem: Infection RiskGoal: Absence of infection05/19/20231220 by Shara Taylor RNOutcome: Adequate for discharge05/19/2023932 by Shara Taylor RNOutcome: Progressing as expected Problem: Skin integrity Impaired (Risk or Actual)Goal: Prevention of new skin breakdown05/19/20231220 by Shara Taylor RNOutcome: Adequate for discharge05/19/2023932 by Shara Taylor RNOutcome: Progressing as expected Problem: Falls, Risk ofGoal: Absence of falls05/19/2023 1221 by Shara Taylor RNOutcome: Adequate for discharge05/19/2023 0933 by Shara Taylor RNOutcome: Progressing as expected 80025-3Xgrq of care iobrUZ9911-38-85R90:21:42Plan of care noteTXT1.2.840.088157.1.13.104.2. 7.2.457115|[id number] for patient yozj17256-9OaltNT700470418Rmsdc A Schlepphorst RN[address]TXTX[address] 350WHHWUYKYGGANGJYZOEYSIW5832-28- 20T12:21:421.2.840.672438.1.72.3. 15|1.2.840.487971.1.13.104.2.7.2. 727879_[id number] Shara Taylor RN [facility] 2023-05-19 09:33:20 3427-28-68H37:33:20 Problem: PainGoal: Control of pain at or below patient's documented comfort goalOutcome: Progressing as expectedGoal: Reduction in pain sensationOutcome: Progressing as expected Problem: Mobility - ImpairedGoal: Able to achieve maximum mobility levelOutcome: Progressing as expected Problem: Discharge PlanningGoal: Adequate for dischargeOutcome: Progressing as expectedGoal: Effective communicationOutcome: Progressing as expected Problem: Infection RiskGoal: Absence of infectionOutcome: Progressing as expected Problem: Skin integrity Impaired (Risk or Actual)Goal: Prevention of new skin breakdownOutcome: Progressing as expected Problem: Falls, Risk ofGoal: Absence of fallsOutcome: Progressing as expected 06780-5Aexg of care bcvcNZ5535-25-37H39:33:56Plan of care noteTXT1.2.840.344310.1.13.104.2. 7.2.050810|[id number] for patient jjxo05708-9WnuiQVCVQWLMLB[address]TXTX[address] 974ZNWNCIBYILCTVLGGWIQJSL9204-00- 20T09:33:561.2.840.967756.1.72.3. 15|1.2.840.965952.1.13.104.2.7.2. 727879_[id number] [facility] 2023-05-19 00:59:45 8285-97-48J79:59:45 Problem: PainGoal: Control of pain at or below patient's documented comfort goalOutcome: Progressing as expectedGoal: Reduction in pain sensationOutcome: Progressing as expected Problem: Mobility - ImpairedGoal: Able to achieve maximum mobility levelOutcome: Progressing as expected Problem: Discharge PlanningGoal: Adequate for dischargeOutcome: Progressing as expectedGoal: Effective communicationOutcome: Progressing as expected Problem: Infection RiskGoal: Absence of infectionOutcome: Progressing as expected Problem: Skin integrity Impaired (Risk or Actual)Goal: Prevention of new skin breakdownOutcome: Progressing as expected Problem: Falls, Risk ofGoal: Absence of fallsOutcome: Progressing as expected 35941-4Lzdv of care ureaWQ4626-28-28G99:59:48Plan of care noteTXT1.2.840.149708.1.13.104.2. 7.2.621372|[id number] for patient yamn51852-7BhwkRI935936049Fkvve E Nichols RN[address]TXTX[address] 741AUUSCRJIRAEWFRUGWVCZUU8914-12- 20T00:59:481.2.840.447439.1.72.3. 15|1.2.840.586014.1.13.104.2.7.2. 727879_[id number] Sydnee Cramer RN [facility] 2023 01:10:42 3624-10-38Q61:10:42 Problem: PainGoal: Control of pain at or below patient's documented comfort goalOutcome: Progressing as expectedGoal: Reduction in pain sensationOutcome: Progressing as expected Problem: Mobility - ImpairedGoal: Able to achieve maximum mobility levelOutcome: Progressing as expected Problem: Discharge PlanningGoal: Adequate for dischargeOutcome: Progressing as expectedGoal: Effective communicationOutcome: Progressing as expected Problem: Infection RiskGoal: Absence of infectionOutcome: Progressing as expected Problem: Skin integrity Impaired (Risk or Actual)Goal: Prevention of new skin breakdownOutcome: Progressing as expected Problem: Falls, Risk ofGoal: Absence of fallsOutcome: Progressing as expected 46735-1Rbsi of care jjtyUH8038-58-90M81:10:45Plan of care noteTXT1.2.840.569181.1.13.104.2. 7.2.859386|[id number] for patient njna83208-1GaxtMAMSKUFGPJ[address] EzkbXvprdmqpmMhrtzctlcMACF9396503 596EMVYTXJXLNEFOMBQSAUNHZ4666-56- 19T01:10:451.2.840.549639.1.72.3. 15|1.2.840.333872.1.13.104.2.7.2. 727879_[id number] [facility] 2023-05-17 16:24:17 4282-43-39W47:24:17 Problem: Mobility - ImpairedGoal: Able to achieve maximum mobility levelOutcome: Progressing as expected Problem: PainGoal: Control of pain at or below patient's documented comfort goalOutcome: Progressing as expectedGoal: Reduction in pain sensationOutcome: Progressing as expected 72720-5Umlf of care bszmOM8132-95-34A82:24:21Plan of care noteTXT1.2.840.065824.1.13.104.2. 7.2.914840|[id number] for patient krgx34904-9LhfqSTDXYISYHZ[address]TX[place] 791SUGHDCSFWRXWCOFWIDMZQC6351-92- 18T16:24:211.2.840.226799.1.72.3. 15|1.2.840.921539.1.13.104.2.7.2. 727879_[id number] [facility] 2023-05-17 10:45:33 1920-76-97P19:45:33 Report given to ASSURANCE ASSISTANT at 1040. Patient reassessment remains unchanged, patient moved to chair, daughter at bedside. 67195-0Gkpeptvlt department ZaukDV2932-91-45G07:46:25[facility] NoteTXT1.2.840.351711.1.13.104.2. 7.2.198144|[id number] for patient kodd87666-7OwqnFE661100098Hufdqs A Pierce RN[address]TXTX[address] 228LCSKLWVCHPEPHYOKYGTYXL3919-18- 18T10:46:251.2.840.350511.1.72.3. 15|1.2.840.960169.1.13.104.2.7.2. 727879_[id number] Reji Lyman RN [facility] 2023-05-17 09:45:16 2605-41-09N54:45:16 Carol Garces Arabella in room 128/128, on monitor during assessment, education provided to patient and family including: call light location and use, fall precautions, dietary restrictions, plan of care with time approximations, the care team, and pain management. No notable changes from night assessment, see focused assessment for additional details. 81296-5Wadgzhlhc department LcapFO8074-26-91B01:46:26[facility] department NoteTXT1.2.840.221235.1.13.104.2. 7.2.648182|[id number] for patient xhjv24001-8JissDLBDZJWLUY[address]TX[place] 468WAJNCBDMTMQURKNZYHAOZE7130-28- 18T09:46:261.2.840.308005.1.72.3. 15|1.2.840.348152.1.13.104.2.7.2. 727879_[id number] [facility] 2023-05-17 07:11:10 4042-93-63T73:11:10 Report given to Reji SALVADOR. POC discussed, questions answerd. 95075-3Opyglcktl department OwjeOQ6906-33-85I12:11:44[facility] department NoteTXT1.2.840.211781.1.13.104.2. 7.2.269084|[id number] for patient rvjy57542-4UkivVN057099618Mcpqqaj R Davenport RN[address] 022BDAOCAWPLNCOTFYNXQRXZI3521-87- 18T07:11:441.2.840.695224.1.72.3. 15|1.2.840.256480.1.13.104.2.7.2. 727879_[id number] Yani Ibrahim RN [facility] 2023-05-17 06:07:27 4470-45-91O86:07:27 Patient resting in hospital bed with call astorga in reach. Patient aaox3, respirations even/unlabored, appears in no acute distress. Patient updated on status, pending ICU bed placement at this time. Pt remains on continuous cardiac, bp, and o2 monitors. 26270-4Nlcarledo department TlkeEF9591-16-64O77:08:18[facility] department NoteTXT1.2.840.930791.1.13.104.2. 7.2.313723|[id number] for patient ovkh39109-6AecuWLAAQYCFIV[address]vd[address] 108WQLLCCEJFCKURBKOUSOLNQ6702-24- 18T06:08:181.2.840.903786.1.72.3. 15|1.2.840.578985.1.13.104.2.7.2. 727879_[id number] [facility] 2023-05-17 01:00:00 0213-26-21V72:00:00 Hospital bed switched out for stretcher - patient resting in hospital bed with call astorga in reach. Patient aaox3, respirations even/unlabored, appears in no acute distress. Pending ICU bed placement at this time. 49260-7Pzbueisub department XkoqON6829-01-51Q41:52:01[facility] NoteTXT1.2.840.586791.1.13.104.2. 7.2.958328|[id number] for patient xzpk31774-5CsijMFXVTGCPDI[address]TX[address] 989ESFZRZESYAVBVBTXXMGSZQ0662-56- 18T01:52:011.2.840.527736.1.72.3. 15|1.2.840.573909.1.13.104.2.7.2. 727879_[id number] [facility] 2023-05-16 23:22:08 6053-96-11N09:22:08 Patient resting in stretcher with call astorga in reach. Patient aaox3, respirations even/unlabored, appears in no acute distress. Pending ICU bed placement. Pt remains on continuous cardiac, bp, and o2 monitors - [place]. 42[address]-3Ylfskgqzw department VkfkAM5072-30-06W02:24:28[facility] department NoteTXT1.2.840.089494.1.13.104.2. 7.2.634713|[id number] for patient ncza70054-8NbhrOBFKKWWPNS49 [address]TX[place] 852HVBBFKNNWNCUXYPHCPQPTO3969-64- 17T23:24:281.2.840.352618.1.72.3. 15|1.2.840.840754.1.13.104.2.7.2. 727879_[id number] [facility] 2023-05-16 22:15:05 4162-97-69X43:15:05 Admitting team notified of pts consecutive low urine output - no new orders received. Pager: [phone] 80809-5Ycrkbguce department IppuHN4543-21-68B00:15:58[facility] department NoteTXT1.2.840.421102.1.13.104.2. 7.2.762561|[id number] for patient byun21328-7EobvVTDWGWNJMZ[address] 292MVQPIIRPBULPHWDJPFYIFO5047-20- 17T22:15:581.2.840.637345.1.72.3. 15|1.2.840.354886.1.13.104.2.7.2. 727879_[id number] [facility] 2023-05-16 20:52:36 5126-91-86Z26:52:36 Spoke with admitting team regarding lovenox order - hold med due to unknown surgery date/time 60689-0Dlpqzekuz department HdahWQ0453-77-75N24:53:14[facility] department NoteTXT1.2.840.898260.1.13.104.2. 7.2.447992|[id number] for patient raob18965-7CbcmZZAJPKYROU49 [address] 946NTBDQPDQVRBKERNIZZMRAO6276-60- 17T20:53:141.2.840.247315.1.72.3. 15|1.2.840.426714.1.13.104.2.7.2. 727879_[id number] [facility] 2023-05-16 19:00:00 8064-35-82C09:00:00 Patient resting in stretcher with call astorga in reach. Patient aaox3, respirations even/unlabored, appears in no acute distress. Patient updated on status, pending ICU bed placement at this time. Pt remains on continuous cardiac, bp, and o2 monitors. [place]. [address]-1Fybmpyydd[address] VeaoLL4894-62-77R74:42:47[facility] department NoteTXT1.2.840.925338.1.13.104.2. 7.2.478431|[id number] for patient fjie05572-9TrvpPKSQSBJQZW[address] 532APIFZFJMZHHLALVVLCYDCI6372-67- 17T19:42:471.2.840.781208.1.72.3. 15|1.2.840.826982.1.13.104.2.7.2. 727879_[id number] [facility] 2023-05-16 18:59:42 6091-91-14I26:59:42 Nurse Report Report given to Yani SALVADOR. Chief complaint, assessment findings, infusion verify and orders reviewed. Plan of care discussed at bedside with patient and both nurses. Patient/family [place] [address]-8Wnpdngpnt[address] WjxkIK4240-88-66J20:59:47[facility] department NoteTXT1.2.840.351753.1.13.104.2. 7.2.967172|[id number] for patient vasa80587-3SjrzZE507669450Oixdbx P Liquigan RN[address] 341ZOSDRYRVKPTRYQDZJPLWZN8581-93- 17T18:59:471.2.840.060105.1.72.3. 15|1.2.840.921726.1.13.104.2.7.2. 727879_[id number] Enrique Bae RN [facility] 2023-05-16 16:13:15 2317-73-14T74:13:15 Warm blanket provided 05800-0Bikiqyqvc department CxfoJT6146-76-93B38:13:23[facility] NoteTXT1.2.840.671513.1.13.104.2. 7.2.048927|[id number] for patient yojo65841-6ZdxpQVLFYLZQHH[address] 210TDDNVIAVADVLJNZEBDSCZG1453-98- 17T16:13:231.2.840.289132.1.72.3. 15|1.2.840.504666.1.13.104.2.7.2. 727879_[id number] [facility] 2023-05-16 15:55:53 8719-34-47S48:55:53 Oral care rendered 93781-3Rncjsaubn department BfphSG0235-83-18W29:55:59[facility] NoteTXT1.2.840.790602.1.13.104.2. 7.2.752845|[id number] for patient ehwn41811-0RvrkXWDNPCIPOW49 [address] 146TFJQZUABQRNIIWHNTDAFZQ5814-78- 17T15:55:591.2.840.783091.1.72.3. 15|1.2.840.440353.1.13.104.2.7.2. 727879_[id number] [facility] 2023-05-16 15:00:00 9455-19-52T52:00:00 Pt returned from procedure. Per family, pt tolerated procedure 76089-3Fzxtynjid[address] GkjqJM8034-31-04I60:15:35[facility] department NoteTXT1.2.840.763618.1.13.104.2. 7.2.618893|[id number] for patient bdia07666-1ExfhLLRIGROTPQ49 [address] 972GJLEHZSQSKGUAHILUPRZJX8094-42- 17T15:15:351.2.840.861855.1.72.3. 15|1.2.840.873140.1.13.104.2.7.2. 727879_[id number] [facility] 2023-05-16 13:53:46 2417-86-66G71:53:46 Pt transported to Diagnostic radiology 19104-0Ptelzvmch department LwudMI5763-58-86D91:53:57[facility] department NoteTXT1.2.840.786965.1.13.104.2. 7.2.504343|[id number] for patient tbcp98483-5MhucUZBOEPODSU49 [address] 141USNRRTXBJPODWQKXMHIYGM4883-55- 17T13:53:571.2.840.331498.1.72.3. 15|1.2.840.815209.1.13.104.2.7.2. 727879_[id number] [facility] 2023-05-16 11:49:07 4209-91-68H69:49:07 Attempting to call [facility] radiology at [phone], no answer 28548-1Eueyjbvug[address] BqekWL0987-63-44O33:49:37[facility] department NoteTXT1.2.840.194117.1.13.104.2. 7.2.223534|[id number] for patient ykgn33874-9SrlfSXCPBJCNAH49 [address] 659WYVGQZTCHIXFCOAGEGUGGU8048-16- 17T11:49:371.2.840.495091.1.72.3. 15|1.2.840.027360.1.13.104.2.7.2. 727879_[id number] [facility] 2023-05-16 11:46:05 5526-30-28N14:46:05 Cardiology MD at bedside 09433-1Pryfzszbd[address] MzutSF5566-32-92R54:46:14[facility] department NoteTXT1.2.840.234123.1.13.104.2. 7.2.275832|[id number] for patient hihu75389-1PyqcMBKUFCHTIO49 [address] 523TUCLIFPMLBMVREREQKNBWQ3994-13- 17T11:46:141.2.840.157063.1.72.3. 15|1.2.840.741159.1.13.104.2.7.2. 727879_[id number] [facility] 2023-05-16 11:45:02 5352-66-29O89:45:02 Surgery faculty at bedside talking to patient about the GI series. Per pt's sister, pt will undergo the test with sister at bedside to supervise drinking of contrast. 95157-3Slclcdirp department GnmuJK0728-71-80W58:46:03[facility] NoteTXT1.2.840.210493.1.13.104.2. 7.2.341498|[id number] for patient wdjp93645-4GoqlQLXUIEEQFH49 [address] 055SDSANUIRFVTVLASVNYZTRN8853-96- 17T11:46:031.2.840.908904.1.72.3. 15|1.2.840.409413.1.13.104.2.7.2. 727879_[id number] [facility] 2023-05-16 10:50:40 8624-03-02W52:50:40 Surgery MD at bedside to talk over GI series test needed. 29880-1Sygcvavse department AhkwQP9390-79-34R13:51:14[facility] NoteTXT1.2.840.005857.1.13.104.2. 7.2.950433|[id number] for patient wnqe88672-9XcboTZIQEMTBVY[address] 785DIIHELXBWPFFXUDOXBLXIX9104-21- 17T10:51:141.2.840.702474.1.72.3. 15|1.2.840.474202.1.13.104.2.7.2. 727879_[id number] [facility] 2023-05-16 10:36:43 4381-37-81V77:36:43 Patient stable, sleeping comfortably, No signs of distress noted, equal rise and fall of chest, bed in lowest position side rails up x2, family at bedsideBP (!) 155/51 | Pulse 73 | Temp 37 ?C (98.6 ?F) (Oral) | Resp 16 | SpO2 98% 79695-2Gszpedhop department BztxSN2548-97-73J63:37:05[facility] NoteTXT1.2.840.598545.1.13.104.2. 7.2.905862|[id number] for patient egtv67404-1CuzgWSNUJJBEIH[address] [place], [place] [address] 040UJZPNEHHBQJQQSQOWHSIPV0318-50- 17T10:37:051.2.840.396174.1.72.3. 15|1.2.840.471174.1.13.104.2.7.2. 727879_[id number] [facility] 2023-05-16 09:14:26 5625-63-96B10:14:26 Surgery team at bedside updating pt and family with POC, also informed GI series was unsuccessful earlier 51407-2Qrnkklplu department YnufBY5282-25-25Q02:14:55[facility] NoteTXT1.2.840.060435.1.13.104.2. 7.2.496139|5788461150NKVfpcposkj for patient hoir02935-7UsxqRXGMWKDEGE49 [address] 891ALUQFBVSMXLNJBXAECGYTP3883-28- 17T09:14:551.2.840.628173.1.72.3. 15|1.2.840.501533.1.13.104.2.7.2. 727879_[id number] [facility] 2023-05-16 09:09:00 0842-26-22J18:09:00 tech at bedside 56055-3Jggfobted department MxmbQF1620-59-67J28:09:06[facility] NoteTXT1.2.840.764706.1.13.104.2. 7.2.120819|[id number] for patient wcqa09215-2HaemLNTXUQSVQB[address] 188YSVKVZBBPVJDTNQSBDJROG3701-74- 17T09:09:061.2.840.334156.1.72.3. 15|1.2.840.416177.1.13.104.2.7.2. 727879_[id number] [facility] 2023-05-16 08:45:00 8456-72-02Y99:45:00 Pt returned from radiology, per report unable to do GI series due to unable to lie flat. Radiology MD contacted admitting team. Upon arrival pt feeling nauseated, pt repositioned in bed, suction on standby. Pt appearing anxious, family able to calm her down. Pt denied any pain states, "I don't feel good" 49791-3Imefosncx[address] MyzbJP7608-87-59F49:00:51[facility] NoteTXT1.2.840.969003.1.13.104.2. 7.2.529293|[id number] for patient fdel17076-7YtlfFCVWFNEYDX49 [address]TX[place] 945JCWNIDBWTFXBJCNLMNKVUC7046-15- 17T09:00:511.2.840.149788.1.72.3. 15|1.2.840.552314.1.13.104.2.7.2. 727879_[id number] [facility] 2023-05-16 08:10:03 1576-04-78V59:10:03 Dr Jaeger of cardiology at bedside talking to family 36785-6Pvovkexuf department VgvpWV5241-49-99N80:10:18[facility] department NoteTXT1.2.840.592618.1.13.104.2. 7.2.996094|[id number] for patient ciuj04008-1VucuMHQEACUMOU49 [address]TX[place] 941QHNSPWPBHJWWNMWGTRCTHL3496-57- 17T08:10:181.2.840.295900.1.72.3. 15|1.2.840.487427.1.13.104.2.7.2. 727879_[id number] [facility] 2023-05-16 07:50:08 0037-91-25S94:50:08 Patient to Xray 82292-7Dbaqtjqog department RmzaOF8915-74-44L02:50:20[facility] department NoteTXT1.2.840.362270.1.13.104.2. 7.2.428974|[id number] for patient wcam20443-1ZmkhSQ666406474Vfhwybz Lara [address] 512IMJGMPSYNAZNUYWIWAJVZA9636-84- 17T07:50:201.2.840.013683.1.72.3. 15|1.2.840.286374.1.13.104.2.7.2. 727879_[id number] Mare Booth RN [facility] 2023-05-16 07:17:50 0146-73-88K27:17:50 Assumed care from outgoing RN, first encounter with the patient. Patient asleep, respiration even and unlabored. Name and verified, confirmed with wrist band, verified by family who is at bedside. PIVx2 with maintenance fluid and Anbtx infusing well, no infiltration noted. FC present draining yellow urine.Patient in semi-fowlers position, bed in lowest, wheels locked with side rails up x2. Call light within reach, instructed to hit call button when needing anything.BP (!) 151/58 | Pulse 81 | Temp 37 ?C (98.6 ?F) (Oral) | Resp 22 | SpO2 97% Awaiting for ICU bed 06125-3Fzwspoanw department PrrxOH0054-74-73U36:19:30Emergen y department NoteTXT1.2.840.440049.1.13.104.2. 7.2.070199|[id number] for patient fiem18537-2IwwdKHXEGLPZMD[address] 564VXIQIEMHRUHLFBVXRYNWZN0283-64- 17T07:19:301.2.840.053856.1.72.3. 15|1.2.840.015815.1.13.104.2.7.2. 727879_[id number] [facility] 2023-05-16 07:03:07 4028-03-27T91:03:07 Nurse Report Report given to MADELEINE Nunez. Chief complaint, assessment findings, infusion verify and orders reviewed. Plan of care discussed at bedside with patient and both nurses. Patient/family members [place] [address]-3Qhgooitux[address] IkeoIT5667-76-60S99:04:08[facility] NoteTXT1.2.840.160899.1.13.104.2. 7.2.140544|[id number] for patient htcm38102-3JspqHQ426953210Xsv'Nik wa T Dumes [address] 085NXDMZAPFUIFRUOPZJOHFGW8020-17- 17T07:04:081.2.840.606360.1.72.3. 15|1.2.840.923771.1.13.104.2.7.2. 727879_[id number] Luis Carlos Reis RN [facility] 2023-05-16 06:35:00 9124-26-57C58:35:00 Dr Bee at bedside talking with pt and family. Pt to OR soon per Dr Wilson.Cool towel placed on pt forehead d/t c/o being hot and not feeling good. [address]-4Ssajepfei[address] VvtiUB3175-30-08D14:47:44[facility] department NoteTXT1.2.840.652183.1.13.104.2. 7.2.748415|[id number] for patient gejp71978-3GucsJDHJHBITTQ[address]TXTX[address] 135PWBPYBYCNAAXVYMRALBIMA5698-60- 17T06:47:441.2.840.088326.1.72.3. 15|1.2.840.428956.1.13.104.2.7.2. 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 Pain and nausea meds given d/t pt stating she "doesn't feel good," and becoming tearful. Granddaughter at bedside trying to soothe pt. Bedrails x2. EKG completed. Mouth swabs given to help moisten pt's mouth. [address]666-7Ncaqkhucx[address] DnvpBE3202-82-91X09:22:09[facility] NoteTXT1.2.840.391329.1.13.104.2. 7.2.016848|[id number] for patient jqxk31027-8RmntGKBEERPUXX49 [address]TXTX[address] 050MJHBYPEFWCLDDCOKCAJFKJ2688-95- 17T06:22:091.2.840.937976.1.72.3. 15|1.2.840.627752.1.13.104.2.7.2. [id number] [facility] 2023-05-16 03:28:00 6931-04-92J75:28:00 Surgery team at bedside 63808-5Kovxmdsrd department UvsaOB5401-87-30L63:29:43[facility] NoteTXT1.2.840.972831.1.13.104.2. 7.2.818029|[id number] for patient wkcv60415-0UrcdICPSPSDMVV49 [address]TXTX[address] 276PGNFNYYSSDXLGGHNQUZETX0626-86- 17T03:29:431.2.840.474901.1.72.3. 15|1.2.840.820407.1.13.104.2.7.2. 727879_[id number] [facility] 2023-05-16 03:22:01 3727-61-72Z74:22:01 Carol Workman is a 82 year old female who presents to ER via EMS stretcher from [facility] as a referral accepted by general surgery for cc of perforated bowel and hiatal hernia. Pt received 4 mg morphine, 4 mg zofran, 2 mg ativan, pepcid and 1L NS [employer]. Surgery paged at [phone], responded, [place]. [address]-2Pjsgneryx department OnxaSU2128-54-12A63:23:43[facility] NoteTXT1.2.840.431848.1.13.104.2. 7.2.540071|[id number] for patient lbjn71470-3TohsAN781239828Jihrq McDougle RN[address] UrakByfbwvhglYcmzkgcmqSAWN4947323 131HVUOOHFZOMCRDNVBROGBXG0080-00- 17T03:23:431.2.840.033893.1.72.3. 15|1.2.840.820569.1.13.104.2.7.2. 727879_[id number] Saeid Bradley RN [facility] 2023-05-16 02:07:00 1678-25-37R48:07:00 IV stopped for documentation purpose only 84998-7Bwqbjnvan department ZoaoGN2878-01-65D67:07:15Emergenc y department NoteTXT1.2.840.037716.1.13.104.2. 7.2.284614|[id number] for patient cosh18641-7KdazDE173413462Bhcptz D Roman RN[address]vestonTXTX[address] 854DMPPOJDINSURAKMHSQBASQ1843-95- 17T02:07:151.2.840.330370.1.72.3. 15|1.2.840.184521.1.13.104.2.7.2. 727879_[id number] Magalys Alonso RN [facility] 2023-05-16 02:03:57 8699-88-85A37:03:57 Patient transferred to [facility] ED for diagnosis of pneumoperitoneum, hiatal hernia.Patient agrees to transfer/admit plan and verbalized understanding of plan of care, family aware of planPatient awake alert, oriented, resp reg unlabored, skin w/d PIV patent, no s/s infiltration noted, No adverse reaction to medications given while in ED. Report given to [facility] EMS personnel 69892-7Hsfkvpoyk department YmfaWW1425-17-97P58:05:57[facility] department NoteTXT1.2.840.140928.1.13.104.2. 7.2.639629|[id number] for patient htcw14446-2WjqcYZXOHFCORT27 [address] StreetZpihFzxdiwedyEngpwtcyuUYGK5199524 656WDKGIKVUHMDIVYVHRLXMTM2777-35- 17T02:05:571.2.840.992130.1.72.3. 15|1.2.840.832719.1.13.104.2.7.2. [id number] [facility] 2023-05-16 00:46:53 0037-38-94L58:46:53 Pt report given to Magalys Marsh 52629-6Pctwbeabu[address] UxoaVV5831-80-29U65:47:18[facility] department NoteTXT1.2.840.511737.1.13.104.2. 7.2.703075|[id number] for patient fyrp06684-7AfasIFDZNTJZSL49 [address]TXTX[address]77 051BUMSPDNGFMISBIVUTRHARK5216-31- 17T00:47:181.2.840.337618.1.72.3. 15|1.2.840.920254.1.13.104.2.7.2. [id number] [facility] 2023-05-16 00:19:31 6978-07-00W05:19:31 Nurse Report Report given to Shelia Marsh at [facility] ED. Chief complaint, assessment findings, infusion verify [place] [address]-1Ztasjunlq[address] PoliQA0876-99-48L47:20:01[facility] department NoteTXT1.2.840.542677.1.13.104.2. 7.2.815735|[id number] for patient wshd69374-9UqavMRNMTGVMRK49 [address]TXTX[address]77 556IMQMJZTVUIJSDVATGZSAMV9663-36- 17T00:20:011.2.840.739484.1.72.3. 15|1.2.840.828613.1.13.104.2.7.2. [id number] [facility] 2023-05-16 00:14:26 0615-43-60E93:14:26 [facility] ETA 0005-0010 78578-4Bczarx[address]fy[address] [place] [address] OgvdOO9039-39-36N97:15:39[facility] department NoteTXT1.2.840.055366.1.13.104.2. 7.2.452603|[id number] for patient [id number] J Hoot RN[address]TXTX[address] 787HGZACNDPQEDPTOVKUONOPC8272-75- 17T00:15:391.2.840.712380.1.72.3. 15|1.2.840.769292.1.13.104.2.7.2. [id number] Camilla Luther RN [facility] 2023-05-15 20:32:02 1087-87-34K30:32:02 Ekg 2030 18456-0Opibkdndi department LakpOS9714-50-68T56:32:10[facility] department NoteTXT1.2.840.992458.1.13.104.2. 7.2.163992|[id number] for patient dlfq13565-1PdgrPQUISYPTGO82 [address]TXTX[address] 637QOFNZSOVBRAFCQTOOLSFJV5290-63- 16T20:32:101.2.840.250158.1.72.3. 15|1.2.840.929111.1.13.104.2.7.2. [id number] [facility] 2023-05-15 20:28:58 5653-53-13U04:28:58 Patient CO of abdominal pain starting this morning, denies N/V, pt has anxiety ever since having her stents placed. 39683-0Tgelyboew department Triage lohyLL2633-52-82M14:29:41[facility] Triage noteTXT1.2.840.679613.1.13.104.2. 7.2.357407|[id number] for patient htns82060-1Bnansgunq department [id number] R Moss RNUT[address]TXTX[address] 031HLYBJULASPNEEIINQPZNQX5413-48- 16T20:29:411.2.840.426174.1.72.3. 15|1.2.840.062722.1.13.104.2.7.2. [id number] Spencer Alvares RN [facility] 2023-05-14 14:52:00 7936-82-96C72:52:00 [facility] [address] [place] [address] Emergency Department Document Signed Patient: Carol Workman Medical Record#: [id number] : 1940 Acct:[id number] Age/Sex: 82 / F Admit/Reg Date: 05/14/23 Loc: [facility] Room: Report Number: [id number]: Iam Brooke MD Arrival - Arrival ED Triage Note: patient awnt in by PCP with family for increased anxiety and panic attacks. requestiong evaluation by psych team. patient denies any previous psych issues, s/i or h/i History of Present Illness Source: patient Exam/History Limitations: no limitations Primary Care Provider: PCP,UNKNOWN Chief Complaint: Anxiety Stated Complaint: Psych evaluation History of Present Illness: 82-year-old female with past medical history of coronary artery disease (status post stenting 1 month ago), hypertension presents emergency department per request of her PCP Dr. Ocampo for psychiatric evaluation. Patient's daughter who is with a reports that over the last month shortly after her stent placement and initiation of anticoagulation she had a sudden personality change. She is frequently found crying feeling anxious no ability to sleep. She has never had this in the past and has never had any psychiatric problems. No fevers chills chest pain abdominal pain dysuriahematuria cough. Ambulatory with steady gait. 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 is at [facility] (Tawana Campos) Allergies/Adverse Reactions: No Known Drug Allergies Allergy (Verified 05/14/23 14:20) Review of Systems All Other Systems (except as marked in HPI): Reviewed and Negative Physical Exam General Appearance: NAD, Cooperative, Ambulatory Head: Atraumatic, Normocephalic Eyes: PERRL, EOMI Ears: Hearing grossly intact Nose: Normal Mouth/Throat: Mucosa moist Neck: Supple, Non-tender Cardiovascular: R/R/R, No Murmurs, No S3/S4 gallops Abdominal: Soft, Non-tender Extremity/Musculoskeletal: Non-tender, No cyanosis, No edema Skin: Warm, Dry, No Rashes Psych: Other (Labile emotions, crying, smiling, laughing) Neuro: A O X 3, Nonfocal, Motor grossly normal, Sensory grossly normal Triage Vital Signs: Temperature 36.8 C 05/14/23 14:18 Temperature Source Oral 05/14/23 14:18 Pulse Rate 92 H 05/14/23 14:18 Respiratory Rate 20 05/14/23 14:18 Blood Pressure 188/80 H 05/14/23 14:18 Blood Pressure Source Automatic Cuff 05/14/23 14:18 Blood Pressure Mean 116 05/14/23 14:18 O2 Sat by Pulse Oximetry 100 05/14/23 14:18 Oxygen Delivery Method 05/14/23 14:18 Results/Orders - Results and Orders Result diagrams: 05/14/23 15:10 05/14/23 15:10 - Results and Orders Lab Testing Results 05/14/23 14:50: Urine Color Yellow, Urine Clarity Clear, Urine pH 8.0, Ur Specific [place] <= 1.005,Urine Protein Negative, Urine Glucose (UA) Negative, Urine Ketones Negative, Urine Blood Negative, Urine Nitrate Negative, Urine Bilirubin Negative, Urine Urobilinogen 1.0, Ur Leukocyte Esterase Negative 05/14/23 14:50: Urine Opiates Screen Negative, Urine Methadone Screen Negative, Ur Propoxyphene Screen Negative, Ur Barbiturates Screen Negative, Ur Phencyclidine Scrn Negative, Ur Amphetamines Screen Negative, U Benzodiazepines Scrn Negative, Urine Cocaine Screen Negative, U Cannabinoids Screen Positive A 05/14/23 15:10: WBC 9.0, RBC 3.67 L, Hgb 11.8 L, Hct 35.7 L, MCV 97.30, MCH 32.2, MCHC 33.10, RDW Coeff of Anitha 12.7, Plt Count 383, MPV 9.2, Immature Gran % (Auto) 0.2, Neut % (Auto) 70.1 H, Lymph %(Auto) 20.8, [place] % (Auto) 6.7, Eos % (Auto) 1.4, Baso % (Auto) 0.8, Neut # (Auto) 6.3, Lymph # (Auto) 1.88, [place] # (Auto) 0.60, Eos # (Auto) 0.13, Baso # (Auto) 0.07, Immature Gran # (Auto) 0.02,Absolute Nucleated RBC 0, Nucleated RBC % (auto) 0 05/14/23 15:10: Sodium 136.0, Potassium 4.3, Chloride 104, Carbon Dioxide 20, Anion Gap 12, BUN 15, Creatinine 0.94, Estimated Creat Clear 44.02, Estimated GFR 61 L, BUN/Creatinine Ratio 16, Glucose 117 H, Calculated Osmolality 283.3, Calcium 8.0 L, Total Bilirubin 0.6, AST 29, ALT 26, Alkaline Phosphatase 95, Total Protein 6.5, Albumin 4.2, Globulin 2.3, Albumin/Globulin Ratio 1.8, Ethyl Alcohol < 3 05/14/23 15:10: PT 10.3, INR 1.0, APTT 23.4 L 05/14/23 15:10: Troponin I High Sens 57 H* 05/14/23 15:10: B-Natriuretic Peptide 174.1 H 05/14/23 17:01: Troponin I High Sens 79 H* Medications Ordered: Discontinued Medications Lorazepam (Lorazepam 1 Mg Tablet) 1 mg PO ONCE ONE Stop: 05/14/23 14:49 Last Admin: 05/14/23 15:00 Dose: 1 mg Documented By: RUCHI EKG Orders: EKG Orders 05/14/23 14:37 EKG ED Electrocardiogram Stat ED Provider EKG Interpretation: Rate 73, MO 169, QRS D 90, QT 474, QTC 523. Sinus rhythm. Deep inverted T-waves noted in anterior lateral leads. No acute ischemic findings. Interpreted by Dr. Downing attending (Tawana Campos) Radiology Orders: Radiology Orders 05/14/23 14:37 CT head/brain wo contrast Stat MDM/COURSE - Query Based MDM Diagnoses considered: dementia, stroke, electrolyte abnormality, anemia, UTI, pneumonia, brain bleed Patient was considered for higher level of care: Considered bring the patient for observation secondary to abnormal EKG and elevated troponin Case discussed with: Dr. Thao attending, psych child care education coordinator Vital Signs Temperature 36.8 C 05/14/23 14:18 Pulse Rate 92 H 05/14/23 14:18 Respiratory Rate 20 05/14/23 14:18 Blood Pressure 188/80 H 05/14/23 14:18 O2 Sat by Pulse Oximetry 100 05/14/23 14:18 Temperature 36.8 C 05/14/23 14:18 Pulse Rate 92 H 05/14/23 14:18 Respiratory Rate 20 05/14/23 14:18 Blood Pressure 142/59 H 05/14/23 16:50 O2 Sat by Pulse Oximetry 100 05/14/23 14:18 - [facility] Medical decision making narrative: 05/14/23 14:53 Differential diagnosis includes dementia, stroke, electrolyte abnormality, anemia, UTI, pneumonia, brain bleed 05/14/23 18:47 Hemoglobin 11.8, glucose 117, troponin 57, BNP 174 CT head w/o: 1. 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 No CT evidence of intracranial hemorrhage or acute cortical infarct. 2. Nonspecific white matter changes which may represent chronic small vessel ischemia. If there is clinical concern for acute ischemia, MRI can be obtained. 3. Generalized parenchymal volume loss. Patient's EKG was noted to be abnormal in the ED however this could be chronic for her given her history of cardiac stents and being on blood thinners. However I had nothing to compare to and therefore we repeated the troponin which increased to 79. The plan was to admit the patient for observation secondary to abnormal EKG and increasing troponin however it was found that the patient eloped out of the lobby prior to getting her full medical workup However during her time in the ED she did not meet with the senior staff psychologist, who advised her that she would not meet for inpatient criteria however she was set up an appointment on 05/[address] Martinez's group. I suspect the patient's cognitive changes could be secondary to previous strokes. There was no indication of MRI brain since been no recent acute changes. Patient's symptoms have been going on for more than a month. Unfortunately the patient eloped out of the lobby prior to me being able to place the patient observation for overnight secondary to elevated troponin. The patient did however initially tell me during evaluation that she has an upcoming appointment with the corporate development associate on 05/22 (Tawana Campos) - Query Based MDM My independent Interpretation: See medical decision-making (Tawana Campos) Discharge Plan - Discharge Clinical Impression: Alteration in emotional state, Abnormal EKG Disposition: Elopement Condition: Fair Instructions: Evaluation Psychiatric Care Plan Goals: Follow up with on saturday05/20/2023. Return to the ED if you develop worsening symptoms, suicidal thoughts, homidical thoughts, hallucinations Referrals: Edmundo Martinez MD [Staff Physician] - Print Language: Romanian - Discharge Data Time Seen by Provider: 05/14/23 13:58 - Depart Patient Account Discharge Date/Time: 05/14/23 18:17 Dictated By: MILADIS Baldwin Signed By: Tawana Campos 05/14/23 1520 Iam Brooke MD 05/15/23 1929 DD/ 1452 TD/TT: 05/14/23 1452 Obgyn Nurse: LILLIE cc: PEDRITOUNK* PCP,UNKNOWN P.DANA Physician DocumentationJack KrishnamurthyOpnraXxderyvnMpoxf5844-81-55R48:5 2:00P.EDAVAvailable for patient tnsmOZAHIHzFAYOb8929-27-65T05:30: 11 [facility]
[2023-09-05 18:24] LABS: Absolute Lymphocytes (CBC) 2.5 K/uL (0.7-4.9); Hematocrit 34.7 % (36.0-45.0); Lymphocytes % 30.2 % (15.3-44.8); MCV 97.1 fL (80-100); MPV 7.1 fL (7.6-11.3); Platelets 410 thou/uL (152-406); RBC Red Blood Cell Count 3.57 M/uL (3.86-4.86)
[2023-09-05 18:27] LABS: Protime INR 1.17
[2023-09-05] MEDS ORDERED: NA CHLORIDE 0.9% 1,000 ML ONE (18:33)
[2023-09-05] MEDS ORDERED: MORPHINE 4 MG/ML SYR ONE (18:33)
[2023-09-05] MEDS ORDERED: ONDANSETRON 4 MG/2 ML VIAL ONE ×2 (18:33→21:37)
[2023-09-05 18:43] LABS: Albumin 3.5 g/dL (3.4-5.0); Bilirubin Direct 0.1 mg/dL (0-0.2); Bilirubin Indirect, Calculated 0.3 mg/dL (0.2-0.8); Bilirubin Total 0.4 mg/dL (0.2-1.0); Magnesium 2.3 mg/dL (1.6-2.4); Potassium 3.8 mEq/L (3.5-5.1); Protein, Total 7.1 g/dL (6.4-8.2); Troponin High Sensitivity 8.7 pg/mL (<58.9)
[2023-09-05 18:45] LABS: Specific Gravity 1.011 (1.005-1.030); Urine Bacteria <20 /HPF (<20); Urine Bilirubin NEGATIVE (Negative); Urine Blood Negative (Negative); Urine Clarity Turbid (Clear); Urine Color Colorless (Yellow); Urine Glucose NEGATIVE (Negative); Urine Mucus Slight /HPF (None Seen); Urine Protein NEGATIVE (Negative); Urine RBC <5 /HPF (None Seen); Urine Urobilinogen Normal (Normal)
--- NOTE | 2023-09-05 19:15 | RAD REPORT ---
[facility] CLINICAL HISTORY: abdomen pain;Chest pain COMPARISON: Chest Single View dated 06/06/2023; Chest Single View dated 07/04/2017 TECHNIQUE: Portable AP view of the chest. FINDINGS: The lungs are clear. No pneumothorax or effusion. The cardiomediastinal contours are unre markable. IMPRESSION: No acute cardiopulmonary process.
[2023-09-05] MEDS ORDERED: NA CHLORIDE 0.9% 500 ML ONE (19:23)
--- NOTE | 2023-09-05 20:02 | RAD REPORT ---
EXAM DESCRIPTION: US - Abdomen Exam Limited - 09/05/2023 6:47 pm CLINICAL HISTORY: ABD PAIN COMPARISON: No comparisons TECHNIQUE: Sonographic grayscale and color flow images of the right upper abdominal quadrant were o btained. FINDINGS: Evaluation is limited by over shadowing bowel gas. The gallbladder demonstrates no gallsto twin. No pericholecystic fluid or gallbladder wall thickening. The common bile duct is normal measurin g 5 mm. The liver demonstrates no findings of intrahepatic biliary dilatation. IMPRESSION: Normal right upper quadrant ultrasound, allowing for some over shadowing bowel gas which limits evaluation. .
[2023-09-05] MEDS ORDERED: LORazepam 2 MG/ML VIAL ONE (20:38)
[2023-09-05] MEDS ORDERED: FAMOTIDINE 20 MG/2 ML VIAL IV ONE (21:37)
[2023-09-05] MEDS ORDERED: METOCLOPRAMIDE 10 MG/2mL INJ ONE (21:55)
--- NOTE | 2023-09-05 22:14 | RAD REPORT ---
EXAM DESCRIPTION: CT - Angio Aorta For Dissection - 09/05/2023 9:12 pm CLINICAL HISTORY: back pain;Abd pain COMPARISON: No comparisons TECHNIQUE: Thin axial CT images of the chest, abdomen, and pelvis were obtained during administratio n of 150mL Isovue 370 IV contrast. Sagittal and coronal reconstructions as well as maximal intensity projection reconstruction were generated and reviewed per an aortic angiography protocol. All CT scans are performed using dose optimization technique as appropriate and may include automated exposure control or mA/KV adjustment according to patient size. FINDINGS: Aorta is normal in diameter with no dissection or other acute aortic findings. Reconstruct ion images show no significant findings. Pulmonary arteries are normal as well. No mass or infiltrate in the lung parenchyma. No pleural thickening, pleural effusion or pneumothorax . No abnormal mediastinal or hilar mass or lymphadenopathy seen. No chest wall mass or abnormal axillar y lymphadenopathy. Celiac axis is patent. SMA shows moderate focal stenosis just distal to the origin. Renal arteries sh ow no suspicious findings. Large hiatal hernia. Small umbilical hernia containing fat. Solid abdomina l viscera and bowel show no significant findings. No mass or abnormal lymphadenopathy. IMPRESSION: No acute abnormalities on CT angiogram of the aorta. No other acute findings on chest, abdomen and pelvis examination. Incidental findings as above.
--- NOTE | 2023-09-05 23:35 | EDPHYS ---
Physician Documentation [facility] Name: Carol Bell Age: 83 yrs Sex: Female : 1940 Arrival Date: 09/05/2023 Time: 17:33 Bed 11 Private MD: ED Physician HPI: 09/05 17:50 This 83 yrs old Female presents to ER via EMS with complaints of Abdominal Pain. cp 17:50 The patient presents with abdominal pain in the upper abdomen. Onset: The cp symptoms/episode began/occurred today. The symptoms radiate to right back. Historical: - Allergies: 17:47 No Known Allergies; me1 - PSHx: 17:47 cardiac stents; me1 - Immunization history:: Adult Immunizations up to date. - Social history:: Smoking status: Patient denies any tobacco usage or history of. ROS: 17:55 Constitutional: Negative for body aches, chills, fever, cp 17:55 Eyes: Negative for injury, pain, redness, and discharge, cp 17:55 ENT: Negative for drainage from ear(s), ear pain, sore throat, difficulty swallowing, difficulty handling secretions, 17:55 Cardiovascular: Negative for chest pain, edema, palpitations, 17:55 Respiratory: Negative for cough, shortness of breath, wheezing, 17:55 Abdomen/GI: Positive for abdominal pain, nausea and vomiting, Negative for diarrhea, constipation, anorexia, hematemesis, 17:55 Back: Positive for pain at rest, pain with movement, radiated pain, 17:55 : Negative for urinary symptoms, 17:55 Neuro: Negative for altered mental status, dizziness, headache, weakness, 17:55 All other systems are negative, Exam: 18:00 Constitutional: The patient appears in no acute distress, alert, awake, cp non-diaphoretic, non-toxic, well developed, well nourished, anxious, uncomfortable, 18:00 Head/Face: Normocephalic, atraumatic. cp 18:00 Eyes: Periorbital structures: appear normal, Conjunctiva: normal, no exudate, no injection, Sclera: no appreciated abnormality, Lids and lashes: appear normal, bilaterally, 18:00 ENT: External ear(s): are unremarkable, Nose: is normal, Mouth: Lips: moist, Oral mucosa: pink and intact, moist, Posterior pharynx: Airway: no evidence of obstruction, patent, 18:00 Chest/axilla: Inspection: normal, 18:00 Cardiovascular: Rate: tachycardic, Rhythm: regular, Edema: is not appreciated, JVD: is not appreciated, 18:00 Respiratory: the patient does not display signs of respiratory distress, Respirations: shallow respirations, that is mild, Breath sounds: are clear throughout, no decreased breath sounds, no stridor, no wheezing, 18:00 Abdomen/GI: Inspection: abdomen appears normal, Bowel sounds: active, all quadrants, Palpation: soft, in all quadrants, severe abdominal tenderness, in the epigastric area, right upper quadrant and left upper quadrant, rebound tenderness, is not appreciated, voluntary guarding, is elicited in the epigastric area, right upper quadrant and left upper quadrant, 18:00 Back: pain, that is severe, of the right mid back, 18:00 Skin: cellulitis, is not appreciated, no rash present. 18:00 Neuro: Orientation: to person, place \T\ time. Mentation: is normal, Motor: moves all fours, strength is normal, 19:58 ECG was reviewed by the Attending Physician. cp Vital Signs: 17:45 BP 161 / 72; Pulse 105; Resp 24; Temp 99.7(A); Pulse Ox 97% on R/A; Weight 74.84 kg; me1 Height 5 ft. 0 in. ; Pain 7/10; 19:12 BP 154 / 68; Pulse 77; Resp 16; Pulse Ox 100% on R/A; me1 20:15 BP 140 / 79; Pulse 68; Resp 17; Pulse Ox 100% on R/A; me1 21:15 BP 148 / 61; Pulse 70; Resp 17; Pulse Ox 99% on R/A; me1 22:15 BP 129 / 74; Pulse 71; Resp 16; Pulse Ox 100% on R/A; me1 23:15 BP 134 / 75; Pulse 64; Resp 16; Pulse Ox 99% on R/A; me1 12/08 00:30 BP 128 / 54; Pulse 72; Resp 16; Temp 97.1; Pulse Ox 99% on R/A; pf1 01:30 BP 141 / 63; Pulse 71; Resp 16; Temp 97.8; Pulse Ox 99% on R/A; pf1 09/05 17:45 Body Mass Index 32.22 (74.84 kg, 152.4 cm) me1 09/05 17:45 Pain Scale: Adult me1 MDM: 09/05 17:37 Patient medically screened. cp 23:35 Data reviewed: vital signs, nurses notes, lab test result(s), EKG, radiologic studies, cp CT scan, plain films. 23:35 Consideration of Admission/Observation Patient was admitted/placed on observation. cp Management of patient was discussed with the following: Hospitalist: DR Vail will admit after discussion. Dining Services Director: Dr Bray will consult after discussion of today's findings. I considered the following discharge prescriptions or medication management in the emergency department Medications were administered in the Emergency Department. See MAR. Independent interpretation of the following test(s) in the Emergency Department EKG: See my EKG interpretation above. Response to treatment: the patient's symptoms have markedly improved after treatment. 09/05 17:38 Order name: Basic Metabolic Panel; Complete Time: 18:49 cp 09/05 18:49 Interpretation: Normal except: GLUC 115; BUN 36; CRE 1.45; GFR 36. cp 09/05 17:38 Order name: CBC with Diff; Complete Time: 18:49 cp 09/05 20:22 Interpretation: Normal except: RBC 3.57; HGB 11.7; HCT 34.7; PLT 410; MPV 7.1. cp 09/05 17:38 Order name: LFT's; Complete Time: 18:49 cp 09/05 17:38 Order name: Magnesium; Complete Time: 18:49 cp 09/05 17:38 Order name: PT-INR; Complete Time: 18:49 cp 09/05 17:38 Order name: Troponin HS; Complete Time: 18:49 cp 09/05 17:38 Order name: Lactate w/ 2H reflex if indic.; Complete Time: 18:49 cp 09/05 22:31 Interpretation: Reviewed. cp 09/05 17:38 Order name: Urinalysis W/Microscopic; Complete Time: 18:49 cp 09/05 17:38 Order name: Lipase; Complete Time: 18:49 cp 09/06 00:40 Order name: Lactate w/ 2H reflex if indic. EDMS 09/06 00:40 Order name: Urinalysis w/ reflexes EDMS 09/06 00:40 Order name: CBC with Automated Diff EDMS 09/06 00:40 Order name: CBC with Automated Diff EDMS 09/06 00:40 Order name: Comprehensive Metabolic Panel EDMS 09/06 00:40 Order name: Comprehensive Metabolic Panel EDMS 09/06 00:43 Order name: Lactate Sepsis 2 HR Follow-up EDMS 09/05 17:38 Order name: XRAY Chest (1 view); Complete Time: 19:29 cp 09/05 17:58 Order name: US Abdomen Limited: gallbladder; Complete Time: 20:12 cp 09/05 20:12 Order name: CT Aorta for Dissection; Complete Time: 22:29 cp 09/05 17:38 Order name: EKG; Complete Time: 17:39 cp 09/05 17:38 Order name: Cardiac monitoring; Complete Time: 19:56 cp 09/05 17:38 Order name: EKG - Nurse/Tech; Complete Time: 19:56 cp 09/05 17:38 Order name: IV Saline Lock; Complete Time: 18:12 cp 09/05 17:38 Order name: Labs collected and sent; Complete Time: 18:12 cp 09/05 17:38 Order name: O2 Per Protocol; Complete Time: 18:12 cp 09/05 17:38 Order name: O2 Sat Monitoring; Complete Time: 18:12 cp 09/05 17:58 Order name: NPO; Complete Time: 18:12 cp EC:58 Rate is 73 beats/min. Rhythm is regular. VA interval is normal. QRS interval is normal. cp QT interval is normal. Interpreted by me. Reviewed by me. Administered Medications: 18:36 Drug: morphine IVP or IV 4 mg IVP once over 4 mins Route: IVP; Infused Over: 4 mins; ca1 Site: right antecubital; 19:05 Follow up: Response: No adverse reaction me1 19:05 Follow up: Response: Pain is decreased me1 18:36 Drug: Ondansetron IVP 4 mg IVP once; over 2 minutes Route: IVP; Site: right antecubital;me1 19:05 Follow up: Response: No adverse reaction ca1 18:36 Drug: NS 0.9% IV 500 ml IV at 100 ml/hr continuous Route: IV; Rate: 100 ml/hr; Site: me1 right antecubital; 19:59 Follow up: IV Status: Completed infusion me1 19:59 Drug: NS 0.9% IV 1000 ml IV at 1 bolus Per protocol; 1000 mL bolus Route: IV; Rate: 1 me1 bolus; Site: right antecubital; 21:15 Follow up: IV Status: Completed infusion me1 20:24 Drug: Ativan IVP 0.5 mg IVP once Route: IVP; Site: right antecubital; me1 21:15 Follow up: Response: No adverse reaction; Anxiety decreased me1 21:26 Drug: Famotidine IVP 20 mg IVP once; dilute with 10 mL 0.9% NaCl; give over 2 minutes me1 Route: IVP; Site: right antecubital; 21:28 Follow up: Response: No adverse reaction me1 21:28 Drug: Ondansetron IVP 4 mg IVP once; over 2 minutes Route: IVP; Site: right antecubital;me1 21:28 Follow up: Response: No adverse reaction; Nausea is decreased me1 21:45 Drug: metoCLOPramide IVP 10 mg IVP once; over 1 to 2 minutes Route: IVP; Site: right me1 antecubital; 23:28 Follow up: Response: No adverse reaction me1 09/06 02:30 Drug: Ondansetron IVP 4 mg IVP once; over 2 minutes Route: IVP; Site: right antecubital;pf1 02:40 Follow up: Response: No adverse reaction; Marked relief of symptoms; Nausea is decreasedpf1 Disposition Summary: 09/05/23 23:35 Hospitalization Ordered Notes: Hospitalization Status: Inpatient Admission cp Provider: Pancho Vail [facility] cp Condition: Stable cp Problem: new cp Symptoms: have improved cp Bed/Room Type: Standard cp Room Assignment: 217(09/06/23 01:34) cg Diagnosis - Upper abdominal pain, unspecified cp Forms: - Medication Reconciliation Form cp - SBAR form cp - Leadership Thank You Letter cp Signatures: Dispatcher [employer] Butch Centeno PA PA cp Garcia, Cindy, RN RN cg Mago Steel RN RN pf1 Aiyana Norton RN RN me1 Corrections: (The following items were deleted from the chart) 00:02 09/05 22:57 LACTATE+C.LAB.BRZ ordered. EDMS EDMS 09/06 00:33 00:04 LACTATE+C.LAB.BRZ ordered. EDMS EDMS 00:38 00:36 LACTATE+C.LAB.BRZ ordered. EDMS EDMS 01:34 09/05 23:35 cp cg
--- NOTE | 2023-09-05 23:35 | ER ---
Nurse's Notes [facility] Name: Carol Bell Age: 83 yrs Sex: Female : 1940 Arrival Date: 09/05/2023 Time: 17:33 Bed 11 Private MD: Diagnosis: Upper abdominal pain, unspecified Presentation: 09/05 17:45 Chief complaint: EMS states: toned out for abdominal pain/back pain. hx of anxiety. me1 abdominal pain to RUQ/LUQ and bilateral flank pain. 04/08. Coronavirus screen: Vaccine status: Patient reports being unvaccinated. Ebola Screen: No symptoms or risks identified at this time. Initial Sepsis Screen: Does the patient meet any 2 criteria? Does the patient have a suspected source of infection? No. Patient's initial sepsis screen is negative. Risk Assessment: Do you want to hurt yourself or someone else? Patient reports no desire to harm self or others. Onset of symptoms was September 05, 2023. 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 Denies n/v/d. Denies fever/chills. Pain: Complains of pain in right upper quadrant and left upper quadrant Pain radiates to back Pain currently is 7 out of 10 on a pain scale. Quality of pain is described as dull, Pain began suddenly, Is continuous. Neuro: Level of Consciousness is awake, alert, obeys commands, Oriented to person, place, time, situation, Appropriate for age. Cardiovascular: Capillary refill < 3 seconds Patient's skin is warm and dry. Respiratory: Airway is patent Respiratory effort is even, unlabored, Respiratory pattern is regular, symmetrical. GI: Reports upper abdominal pain, Patient currently denies constipation, diarrhea, nausea, vomiting. Historical: - Allergies: 17:47 No Known Allergies; me1 - PSHx: 17:47 cardiac stents; me1 - Immunization history:: Adult Immunizations up to date. - Social history:: Smoking status: Patient denies any tobacco usage or history of. Screenin:[facility] Fall Risk Assessment (Adult) History of falling in the last 3 months, me1 including since admission No falls in past 3 months (0 pts) Confusion or Disorientation No (0 pts) Intoxicated or Sedated No (0 pts) Impaired Gait No (0 pts) Mobility Assist Device Used No (0 pt) Altered Elimination No (0 pt) Score/Fall Risk Level 0 - 2 = Low Risk Maintained a safe environment, Provided non-skid footwear, Hourly rounding (assess needs \T\ fall precautionary measures) done. Abuse screen: Denies threats or abuse. Nutritional screening: No deficits noted. Tuberculosis screening: No symptoms or risk factors identified. Assessment: 17:50 General: See triage assessment.. me1 09/06 00:30 Reassessment: Patient appears in no apparent distress at this time. Patient and/or pf1 family updated on plan of care and expected duration. Pain level reassessed. 01:30 Reassessment: Patient appears in no apparent distress at this time. Patient and/or pf1 family updated on plan of care and expected duration. Pain level reassessed. Patient is alert, oriented x 3, equal unlabored respirations, skin warm/dry/pink. Patient states feeling better. Patient states symptoms have improved. Vital Signs: 09/05 17:45 BP 161 / 72; Pulse 105; Resp 24; Temp 99.7(A); Pulse Ox 97% on R/A; Weight 74.84 kg; me1 Height 5 ft. 0 in. ; Pain 7/10; 19:12 BP 154 / 68; Pulse 77; Resp 16; Pulse Ox 100% on R/A; me1 20:15 BP 140 / 79; Pulse 68; Resp 17; Pulse Ox 100% on R/A; me1 21:15 BP 148 / 61; Pulse 70; Resp 17; Pulse Ox 99% on R/A; me1 22:15 BP 129 / 74; Pulse 71; Resp 16; Pulse Ox 100% on R/A; me1 23:15 BP 134 / 75; Pulse 64; Resp 16; Pulse Ox 99% on R/A; me1 09/06 00:30 BP 128 / 54; Pulse 72; Resp 16; Temp 97.1; Pulse Ox 99% on R/A; pf1 01:30 BP 141 / 63; Pulse 71; Resp 16; Temp 97.8; Pulse Ox 99% on R/A; pf1 09/05 17:45 Body Mass Index 32.22 (74.84 kg, 152.4 cm) me1 12 17:45 Pain Scale: Adult me1 ED Course: 09/05 17:35 Patient arrived in ED. em1 17:37 Butch Hager PA is PHCP. cp 17:37 Adrián Kirk MD is Attending Physician. cp 17:45 Aiyana Norton, RN is Primary Nurse. me1 17:47 Triage completed. me1 17:47 Arm band placed on Patient placed in an exam room. me1 17:50 Patient has correct armband on for positive identification. Placed in gown. Call light me1 in reach. Side rails up X 1. Provided Education on: POC. Verbalized understanding. . 17:50 No provider procedures requiring assistance completed. me1 18:12 Inserted saline lock: 22 gauge in right antecubital area, using aseptic technique. me1 18:12 Lipase Sent. me1 18:12 Lactate w/ 2H reflex if indic. Sent. me1 18:12 Basic Metabolic Panel Sent. me1 18:12 CBC with Diff Sent. me1 18:12 LFT's Sent. me1 18:12 Magnesium Sent. me1 18:12 PT-INR Sent. me1 18:12 Troponin HS Sent. me1 18:32 XRAY Chest (1 view) In Process Unspecified. EDMS 18:36 Urinalysis W/Microscopic Sent. me1 18:49 US Abdomen Limited: gallbladder In Process Unspecified. EDMS 21:13 CT Aorta for Dissection In Process Unspecified. EDMS 23:34 Pancho Vail MD is Hospitalizing Provider. 09/06 02:15 Patient admitted, IV remains in place. pf1 02:27 Primary Nurse role handed off by Aiyana Norton, RN pf1 02:27 Attending Physician role handed off by Adrián Kirk MD pf1 Administered Medications: 09/05 18:36 Drug: morphine IVP or IV 4 mg IVP once over 4 mins Route: IVP; Infused Over: 4 mins; me1 Site: right antecubital; 19:05 Follow up: Response: No adverse reaction me1 19:05 Follow up: Response: Pain is decreased me1 18:36 Drug: Ondansetron IVP 4 mg IVP once; over 2 minutes Route: IVP; Site: right antecubital;me1 19:05 Follow up: Response: No adverse reaction me1 18:36 Drug: NS 0.9% IV 500 ml IV at 100 ml/hr continuous Route: IV; Rate: 100 ml/hr; Site: me1 right antecubital; 19:59 Follow up: IV Status: Completed infusion me1 19:59 Drug: NS 0.9% IV 1000 ml IV at 1 bolus Per protocol; 1000 mL bolus Route: IV; Rate: 1 me1 bolus; Site: right antecubital; 21:15 Follow up: IV Status: Completed infusion me1 20:24 Drug: Ativan IVP 0.5 mg IVP once Route: IVP; Site: right antecubital; me1 21:15 Follow up: Response: No adverse reaction; Anxiety decreased me1 21:26 Drug: Famotidine IVP 20 mg IVP once; dilute with 10 mL 0.9% NaCl; give over 2 minutes me1 Route: IVP; Site: right antecubital; 21:28 Follow up: Response: No adverse reaction me1 21:28 Drug: Ondansetron IVP 4 mg IVP once; over 2 minutes Route: IVP; Site: right antecubital;me1 21:28 Follow up: Response: No adverse reaction; Nausea is decreased me1 21:45 Drug: metoCLOPramide IVP 10 mg IVP once; over 1 to 2 minutes Route: IVP; Site: right me1 antecubital; 23:28 Follow up: Response: No adverse reaction me1 09/06 02:30 Drug: Ondansetron IVP 4 mg IVP once; over 2 minutes Route: IVP; Site: right antecubital;pf1 02:40 Follow up: Response: No adverse reaction; Marked relief of symptoms; Nausea is decreasedpf1 Medication: 09/05 17:50 VIS not applicable for this client. me1 Outcome: 23:35 Decision to Hospitalize by Provider. cp 09/06 02:14 Admitted to Med/surg accompanied by nurse, via wheelchair, room 217, with chart, Report pf1 called to MADELEINE Thornton Condition: stable Instructed on discharge instructions, Demonstrated understanding of instructions, 02:21 Patient left the ED. pf1 02:43 Patient left the ED. pf1 Signatures: Dispatcher [employer] EDMS Lamin Bray em1 Butch Hager PA PA cp Finley, Pamala, RN RN pf1 Aiyana Norton RN RN me1 Corrections: (The following items were deleted from the chart) 00:02 12 23:03 LACTATE+C.LAB.BRZ drawn and sent. pf1 EDMS 09/06 00:17 09/05 22:15 BP 134 / 75; Pulse 64bpm; Resp 16bpm; Pulse Ox 99% RA; me1 me1
--- NOTE | 2023-09-06 00:26 | P.HP ---
Certification for Inpatient Patient admitted to: Observation With expected LOS: <2 Midnights Practitioner: I am a practitioner with admitting privileges, knowledge of patient current condition, hospital course, and medical plan of care. Services: Services provided to patient in accordance with Admission requirements found in Title 42 Section 412.3 of the Code of Federal Regulations Patient History Date of Service: 09/06/23 Reason for admission: Abdominal pain History of Present Illness: 83-year-old female with a past medical history of hypertension,vertigo ,History of CVA, neuropathy, chronic back pain brought to ER with abdominal pain which has been going for the last 3 days and has been progressively worsening and was brought to ER. Pain is located in epigastric region with no radiation also associated with worsening of chronic back pain . Not associated with any nausea vomiting or diarrhea. Denies any chest pain or shortness of breath. No fever or chills. Denies any dysuria. Patient was assessed in the ER and workup was negative for any acute changes except for lactic acidosis and was admitted for further management. Allergies No Known Allergies Allergy (Verified 07/05/17 11:02) Home medications list reviewed: Yes Home Medications: Atorvastatin Calcium [Lipitor] 40 mg PO BEDTIME #30 tab 07/05/17 Levothyroxine [Synthroid*] 0.05 mg PO DAILY 07/05/17 Meclizine HCl 25 mg PO TIDP PRN #30 tablet 07/05/17 lisinopriL [Prinivil*] 20 mg PO BID 07/05/17 - Past Medical/Surgical History Diabetic: No Past Medical History: Reviewed- Non-Contributory -: Hypertension -: Vertigo -: Neuropathy -: History of CVA per CT scan -: Chronic back pain Past Surgical History: Reviewed- Non-Contributory -: Back surgery -: Tubal ligation Psychosocial/ Personal History: The patient is a . She has 4 children. - Family History Family History: Reviewed- Non-Contributory - Family History Sister -: Diabetes, Stroke Mother -: Heart disease - Social History Smoking Status: Never smoker Alcohol use: No CD- Drugs: No Caffeine use: No Review of Systems 10-point ROS is otherwise unremarkable Physical Examination - Vital Signs Temperature: 98.4 F Blood Pressure: 128/64 Pulse: 76 Respirations: 18 Pulse Ox (%): 94 - Physical Exam General: Alert, In no apparent distress, Oriented x2 HEENT: Atraumatic, Normocephalic Neck: Supple Respiratory: Clear to auscultation bilaterally, Normal air movement Cardiovascular: Regular rate/rhythm, Normal S1 S2 Capillary refill: <2 Seconds Gastrointestinal: Soft and benign, Non-distended, W/out hepatosplenomegaly, Tenderness Musculoskeletal: No clubbing, No swelling Integumentary: No rashes Neurological: Other (Alert,awake) Lymphatics: No axilla or inguinal lymphadenopathy - Studies Laboratory Data (last 24 hrs) 09/05/23 09/05/23 09/05/23 18:09 18:09 18:09 WBC 8.40 Hgb 11.7 L Hct 34.7 L Plt Count 410 H PT 12.8 H INR 1.17 Sodium 142 Potassium 3.8 BUN 36 H Creatinine 1.45 H Glucose 115 H Magnesium 2.3 Total Bilirubin 0.4 AST 17 ALT 28 Alkaline Phosphatase 94 Lipase 32 Assessment and Plan - Problems (Diagnosis) (1) Abdominal pain Current Visit: Yes Status: Acute Plan: Abdominal pain Nonspecific CT abdomen pelvis was negative for any acute changes Pain control Will start on Protonix Will also add on Maalox (2) Acute kidney injury Current Visit: Yes Status: Acute Plan: Monitor renal parameters IV hydration Possibly prerenal (3) Lactic acidosis Current Visit: Yes Status: Acute Plan: Lactic acidosis noted Will get a repeat lactic acid level IV hydration Will start on Rocephin Obtain cultures Stop antibiotic if cultures are negative (4) Hypertension Onset Date: 07/05/17 Current Visit: No Status: Chronic Plan: Continue home medications and titrate as needed Qualifiers: Hypertension type: essential hypertension Qualified Code(s): I10 - Essential (primary) hypertension (5) Neuropathy Onset Date: 07/05/17 Current Visit: No Status: Chronic Plan: Continue home medications Discharge Plan: Home Plan to discharge in: 48 Hours - Advance Directives Does patient have a Living Will: Yes Does patient have a Durable POA for Healthcare: No - Code Status/Comfort Care Code Status: Do Not Attempt Resuscitat Time Spent Managing Pts Care (In Minutes): 45
[2023-09-06] MEDS ORDERED: ACETAMINOPHEN 500 MG TAB PO PRN (00:34)
[2023-09-06] MEDS ORDERED: ONDANSETRON 4 MG/2 ML VIAL IV PRN (00:34)
[2023-09-06] MEDS ORDERED: MECLIZINE HCL 12.5 MG TAB PO PRN (00:38)
[2023-09-06] MEDS ORDERED: NA CHLORIDE 0.9% 1,000 ML IV SCH (01:00)
[2023-09-06] MEDS ORDERED: ONDANSETRON 4 MG/2 ML VIAL ONE (02:43)
[2023-09-06 02:50] VITALS: O2SAT 99
--- NOTE | 2023-09-06 03:59 | CON ---
Date of Consultation: 09/05/2023 Reason For Services: Upper abdominal pain. History Of Present Illness: This is a case of a female, who comes to us with upper abdominal pain of unknown origin about 1 day of duration. The pain was not getting better, so she was admitted to the hospital for abdominal pain of an unknown origin since the imaging did not show anything surgical. Surgical consult was obtained to trying to help in differential diagnosis of this abdominal pain. Cassandra witt has nausea and she has vomiting. She also has increased lactate. She denies any trauma. Denies a ny dysuria, hematuria, hematochezia, melena. Denies any recent traveling out of the country. Denies any family member sick at home. Review of Systems: Ten-points otherwise unremarkable. Allergies: NONE. Past Surgical History: Cardiac stents. She has no previous colonoscopies. Family History: Noncontributory. Medications: Reviewed. Allergies Listed: None. Social History: She does not smoke. She does not drink alcohol. Physical Examination: General: The patient is awake, alert. HEENT: Pupils are equal and reactive. Anicteric. Neck: Supple. Chest: Clear. Heart: S1, S2. Abdomen: Upper abdominal pain. No guarding or rebound, but is monitor and storage bin tender, etiology of that is unk nown. No Dickey sign. Rectal: Deferred. Breast: Deferred. Pelvic: Deferred. Extremities: Good capillary refill. Laboratory Data: WBC count shows 8.4 and hemoglobin of 11.7 and platelets of 410. INR is 1.17. Lac tic acid is 2.7, creatinine is 1.45. Abdominal ultrasound shows normal right upper quadrant on ultra sound. No pericholecystic fluid. No gallbladder wall thickening. This is per Dr. Archuleta. A CT dis section protocol shows by Dr. Archuleta, no acute abnormalities on CT scan. 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 Renal artery shows no suspicious findings, large hiatal he rnia and small umbilical hernia. Assessment: An 83-year-old patient comes to us with upper abdominal pain. The etiology of that is u nknown. She has an umbilical hernia, but it is not tender right in that region. So from a surgical standpoint, I agree with observation, repeat the lactate, and continue serial abdominal examination. We might feed her in the morning in clinic if she improve. She understands the importance of colono scopies in the future. Also understands the importance of umbilical hernia repair in the future. We will follow the patient with you and give more recommendations as case develops. GINNY Voice ID: [id number] Report ID: [id number]
[2023-09-06 08:05] VITALS: BMI 32.2
[2023-09-06] MEDS ORDERED: LEVOTHYROXINE SOD 0.05 MG TABLET PO SCH (09:00)
[2023-09-06] MEDS ORDERED: lisinopriL 20 MG TAB PO SCH (09:00)
[2023-09-06] MEDS ORDERED: CEFTRIAXONE 1,000 MG in NA CHLORIDE 0.9% 50 ML IVPB SCH (09:00)
--- NOTE | 2023-09-06 09:48 | P.PN ---
Date of Service: 09/06/23 Subjective: Feeling better this morning Not currently having abdominal pain Tolerating clear liquids ROS: 10 point ROS as noted above, otherwise negative Physical exam GEN: Alert, oriented, NAD HEENT: Normal conjunctiva, sclera anicteric CV: Regular rate and rhythm, no edema Pulm: Nonlabored respirations on room air ABD: Soft, nontender, nondistended MSK: No joint tenderness Integumentary: No rashes Neuro: Normal speech, normal affect Vitals reviewed Problem List Abdominal pain Hypertension Neuropathy Plan Abdominal pain Abdominal pain seems improving Tolerating clear liquids No acute findings on CT to explain pain Abdomen soft and nontender General surgery following, await recommendations Repeat labs this morning Hypertension Neuropathy Continue home medications VTE: Lovenox Code: Full Dispo: 24 to 48 hours Time Spent Managing Pts Care (In Minutes): 35
[2023-09-06 10:25] LABS: Hematocrit 29.8 % (36.0-45.0); MCV 96.8 fL (80-100); MPV 7.1 fL (7.6-11.3); Platelets 324 thou/uL (152-406); RBC Red Blood Cell Count 3.08 M/uL (3.86-4.86)
[2023-09-06 10:44] LABS: Potassium 4.3 mEq/L (3.5-5.1)
[2023-09-06] MEDS ORDERED: SODIUM CHLORIDE 0.9% 10ML INJ IV PRN ×2 (13:34)
[2023-09-06] MEDS ORDERED: PANTOPRAZOLE 40 MG INJ IVP ONE (13:49)
[2023-09-06 16:53] VITALS: BP 132/76; TEMP 98
[2023-09-06] MEDS ORDERED: ATORVASTATIN 40 MG TAB PO SCH (21:00)
--- NOTE | 2023-09-06 21:20 | PN ---
Date of Progress Note: 09/06/2023 Reason For Service: Abdominal pain. Subjective: The patient is doing better. No vomiting. She had just some dry heaves, but the pain g ot better. Objective: Vital Signs: Stable. Chest: Clear. Abdomen: Soft and depressible. No guarding or rebound. No peritoneal signs. Extremities: Good capillary refill. Plan: Advance diet. 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 No surgical intervention plan today. LEFTY/JOLSYN Voice ID: [id number] Report ID: [id number]
--- NOTE | 2023-09-07 05:59 | P.DS ---
Admission Date: 09/06/23 Discharge Date: 09/06/23 Disposition: AMA-LEFT AGAINST MEDICAL ADVIC Discharge Condition: FAIR Reason for Admission: Abdominal pain Brief History of Present Illness: Pt was admitted for abd pain, nausea and vomiting Hospital Course: Pt left ama overnight 09/06. Seen by night hospitalist prior to leaving AMA. Vital Signs/Physical Exam: Temp Pulse Resp BP Pulse Ox 98 F 75 15 132/76 98 09/06/23 16:00 09/06/23 16:00 09/06/23 16:00 09/06/23 16:00 09/06/23 16:00 Laboratory Data at Discharge: WBC 7.30 thou/uL (4.3-10.9) 09/06/23 10:15 Hgb 10.4 g/dL (12.0-15.0) L D 09/06/23 10:15 Hct 29.8 % (36.0-45.0) L 09/06/23 10:15 Plt Count 324 thou/uL (152-406) 09/06/23 10:15 PT 12.8 SECONDS (9.5-12.5) H 09/05/23 18:09 INR 1.17 09/05/23 18:09 Sodium 143 mEq/L (136-145) 09/06/23 10:15 Potassium 4.3 mEq/L (3.5-5.1) D 09/06/23 10:15 BUN 27 mg/dL (7-18) H 09/06/23 10:15 Creatinine 1.16 mg/dL (0.55-1.02) H 09/06/23 10:15 Glucose 130 mg/dL (74-106) H 09/06/23 10:15 Magnesium 2.3 mg/dL (1.6-2.4) 09/05/23 18:09 Total Bilirubin 0.4 mg/dL (0.2-1.0) 09/05/23 18:09 AST 17 U/L (15-37) 09/05/23 18:09 ALT 28 U/L (13-56) 09/05/23 18:09 Alkaline Phosphatase 94 U/L (45-117) 09/05/23 18:09 Lipase 32 U/L (13-75) 09/05/23 18:09 Home Medications: Atorvastatin Calcium [Lipitor] 40 mg PO BEDTIME #30 tab 07/05/17 Levothyroxine [Synthroid*] 0.05 mg PO DAILY 07/05/17 Meclizine HCl 25 mg PO TIDP PRN #30 tablet 07/05/17 lisinopriL [Prinivil*] 20 mg PO BID 07/05/17 Furosemide [Lasix*] 40 mg PO DAILY 09/06/23 Metoprolol Tartrate [Lopressor*] 25 mg PO DAILY 09/06/23 Ticagrelor [Brilinta*] 90 mg PO DAILY 09/06/23
[2023-09-07] MEDS ORDERED: PANTOPRAZOLE 40 MG INJ IVP SCH (09:00)
== END 2023-09-06 19:34 | disposition left against medical advice (07) ==
LOC: ER 17:33 → ERHOLD 09-06 00:34 → 2ND 09-06 01:54
PROVIDERS: ADMIT Family Medicine; ATTEND Hospitalist
DX: R10.9 Unspecified abdominal pain (principal); I10 Essential (primary) hypertension; R42 Dizziness and giddiness; G62.9 Polyneuropathy, unspecified; M54.9 Dorsalgia, unspecified; N17.9 Acute kidney failure, unspecified; E87.20 Acidosis, unspecified; K42.9 Umbilical hernia without obstruction or gangrene; R11.2 Nausea with vomiting, unspecified; Z53.29 Procedure and treatment not carried out because of patient's decision for other reasons; Z86.73 Personal history of transient ischemic attack (TIA), and cerebral infarction without residual deficits
CPT/HCPCS: 96361; 93005; 85025; 81001; 80048 ×2; 36415; 83735; 85610; 80076; 83605 ×4; 85027; 84484; 83690; 71275; 74175; 71045; 76705; 96375; 96374; 99285; Q9967; J2765; C9113; J2405 ×3; J7040; J7030 ×2; J0696; G0378